=== PATIENT | female | born 1950 | race Caucasian/White ===

== ENCOUNTER → 2017-10-01 08:44 | Outpatient (CLI) | payer BC, SELFPAY ==
[2017-10-01 10:03] LABS: Absolute Lymphocyte Count 1.05 X10^3/ul (0.83-4.51); Absolute Neutrophil Count 3.5 X10^3/uL (2.0-7.7); Basophil# 0.02 X10^3/uL; Basophil% 0.4 % (0-1); Eosinophils% 1.9 % (0-5); Hematocrit 40.4 % (37-47); Hemoglobin 13.7 g/dl (12.0-15.0); Lymphocyte # 1.05 X10^3/ul (4.0); Mean Corp Hgb Conc 33.9 g/gl (32-36); Mean Corpuscular Hgb 32.4 pg (27.0-32.0); Mean Corpuscular Volume 95.5 fL (81-99); Mean Platelet Vol. 10.4 fl (6.2-12.0); Monocyte# 0.61 X10^3/uL; Monocyte% 11.6 % (0-10); Neutrophil # 3.47 X10^3/uL (2.7-7.7); Neutrophil % 66.1 % (47-70); Platelet Count 253 K/mm3 (150-450); RBC Distribution Width CV 14.3 % (11.6-14.6); RBC Distribution Width SD 47.7 fl (35.1-43.9); Red Blood Count 4.23 M/mm3 (4.2-5.4); White Blood Count 5.3 K/mm3 (4.4-11.0)
[2017-10-01 10:08] LABS: POSITIVE COUNT NO; POSITIVE DIFFERENTIAL NO; POSITIVE MORPHOLOGY NO
[2017-10-01 10:17] LABS: ALB/GLOB Ratio 1.3 RATIO (0.9-2.4); AST(SGOT) 21 U/L (15-37); Alanine Aminotransfer ALT/SGPT 29 U/L (13-56); Albumin, Serum 3.9 g/dL (3.2-5.0); Alkaline Phosphatase 69 U/L (45-117); Anion Gap 6 (5-15); BUN 18 mg/dL (7-18); BUN/Creat Ratio 23.5 RATIO (10-20); Calcium,Total 8.6 mg/dL (8.5-10.1); Chloride 106 mmol/L (98-107); Creatinine, Serum 0.77 mg/dL (0.55-1.02); EST Glomerular Filtration Rate 80 mL/min (>60); Est Glom Filt Rate - Afr Amer 97 mL/min (>60); Glucose 71 mg/dL (70-110); Potassium 4.7 mmol/L (3.5-5.1); Protein, Total 6.9 g/dL (6.4-8.2); Sodium Level 141 mmol/L (136-145)
== END ==
PROVIDERS: Family Provider Internal Medicine; PCP Internal Medicine; Visit Provider Internal Medicine Rheumatology
DX: M06.4 Inflammatory polyarthropathy (principal); M79.7 Fibromyalgia; M15.9 Polyosteoarthritis, unspecified; M85.80 Other specified disorders of bone density and structure, unspecified site; Z79.899 Other long term (current) drug therapy
CPT/HCPCS: 36415; 80053; 85025

== ENCOUNTER → 2017-12-10 07:45 | Outpatient (CLI) | payer BC, SELFPAY ==
[2017-12-10 10:21] LABS: Absolute Lymphocyte Count 1.34 X10^3/ul (0.83-4.51); Absolute Neutrophil Count 2.4 X10^3/uL (2.0-7.7); Basophil# 0.01 X10^3/uL; Basophil% 0.2 % (0-1); Eosinophils% 2.4 % (0-5); Hematocrit 43.4 % (37-47); Hemoglobin 14.2 g/dl (12.0-15.0); Lymphocyte # 1.34 X10^3/ul (4.0); Lymphocyte % 32.2 % (19-41); Mean Corp Hgb Conc 32.7 g/gl (32-36); Mean Corpuscular Hgb 31.4 pg (27.0-32.0); Mean Platelet Vol. 10.4 fl (6.2-12.0); Monocyte# 0.33 X10^3/uL; Monocyte% 7.9 % (0-10); Neutrophil # 2.38 X10^3/uL (2.7-7.7); Neutrophil % 57.3 % (47-70); Platelet Count 251 K/mm3 (150-450); RBC Distribution Width CV 14.5 % (11.6-14.6); RBC Distribution Width SD 50.5 fl (35.1-43.9); Red Blood Count 4.52 M/mm3 (4.2-5.4); White Blood Count 4.2 K/mm3 (4.4-11.0)
[2017-12-10 10:23] LABS: POSITIVE COUNT NO; POSITIVE DIFFERENTIAL NO; POSITIVE MORPHOLOGY NO
[2017-12-10 10:40] LABS: ALB/GLOB Ratio 1.2 RATIO (0.9-2.4); AST(SGOT) 23 U/L (15-37); Alanine Aminotransfer ALT/SGPT 27 U/L (13-56); Albumin, Serum 3.8 g/dL (3.2-5.0); Alkaline Phosphatase 71 U/L (45-117); Anion Gap 6 (5-15); BUN 14 mg/dL (7-18); BUN/Creat Ratio 15.5 RATIO (10-20); Calcium,Total 8.5 mg/dL (8.5-10.1); Chloride 105 mmol/L (98-107); Creatinine, Serum 0.91 mg/dL (0.55-1.02); EST Glomerular Filtration Rate 66 mL/min (>60); Est Glom Filt Rate - Afr Amer 80 mL/min (>60); Globulin 3.3 g/dL (2.2-4.2); Glucose 106 mg/dL (74-106); Potassium 4.3 mmol/L (3.5-5.1); Protein, Total 7.1 g/dL (6.4-8.2); Sodium Level 141 mmol/L (136-145)
== END ==
PROVIDERS: Family Provider Internal Medicine; PCP Internal Medicine; Visit Provider Internal Medicine Rheumatology
DX: M06.4 Inflammatory polyarthropathy (principal); M79.7 Fibromyalgia; M15.9 Polyosteoarthritis, unspecified; M85.80 Other specified disorders of bone density and structure, unspecified site; Z79.899 Other long term (current) drug therapy
CPT/HCPCS: 36415; 80053; 85025

== ENCOUNTER → 2018-02-26 08:42 | Outpatient (CLI) | payer BC, SELFPAY ==
[2018-02-26 09:56] LABS: Absolute Lymphocyte Count 1.62 X10^3/ul (0.83-4.51); Absolute Neutrophil Count 3.2 X10^3/uL (2.0-7.7); Basophil# 0.01 X10^3/uL; Basophil% 0.2 % (0-1); Eosinophil# 0.12 X10^3/uL; Eosinophils% 2.2 % (0-5); Hematocrit 44.1 % (37-47); Hemoglobin 14.5 g/dl (12.0-15.0); Lymphocyte # 1.62 X10^3/ul (4.0); Mean Corp Hgb Conc 32.9 g/gl (32-36); Mean Corpuscular Hgb 31.3 pg (27.0-32.0); Mean Platelet Vol. 10.3 fl (6.2-12.0); Monocyte# 0.44 X10^3/uL; Monocyte% 8.1 % (0-10); Neutrophil # 3.21 X10^3/uL (2.7-7.7); Neutrophil % 59.5 % (47-70); POSITIVE COUNT NO; POSITIVE DIFFERENTIAL NO; POSITIVE MORPHOLOGY NO; Platelet Count 300 K/mm3 (150-450); RBC Distribution Width CV 14.4 % (11.6-14.6); RBC Distribution Width SD 49.7 fl (35.1-43.9); Red Blood Count 4.64 M/mm3 (4.2-5.4); White Blood Count 5.4 K/mm3 (4.4-11.0)
[2018-02-26 10:01] LABS: ALB/GLOB Ratio 1.1 RATIO (0.9-2.4); AST(SGOT) 23 U/L (15-37); Alanine Aminotransfer ALT/SGPT 32 U/L (13-56); Albumin, Serum 3.8 g/dL (3.2-5.0); Alkaline Phosphatase 68 U/L (45-117); Anion Gap 5 (5-15); BUN 12 mg/dL (7-18); BUN/Creat Ratio 14.6 RATIO (10-20); Calcium,Total 8.6 mg/dL (8.5-10.1); Chloride 108 mmol/L (98-107); Creatinine, Serum 0.82 mg/dL (0.55-1.02); EST Glomerular Filtration Rate 74 mL/min (>60); Est Glom Filt Rate - Afr Amer 89 mL/min (>60); Globulin 3.5 g/dL (2.2-4.2); Glucose 83 mg/dL (74-106); Potassium 4.5 mmol/L (3.5-5.1); Protein, Total 7.3 g/dL (6.4-8.2); Sodium Level 144 mmol/L (136-145)
== END ==
PROVIDERS: Family Provider Internal Medicine; PCP Internal Medicine; Visit Provider Internal Medicine Rheumatology
DX: M06.4 Inflammatory polyarthropathy (principal); M79.7 Fibromyalgia; M15.9 Polyosteoarthritis, unspecified; M85.80 Other specified disorders of bone density and structure, unspecified site; Z79.899 Other long term (current) drug therapy
CPT/HCPCS: 36415; 80053; 85025

== ENCOUNTER → 2018-05-26 08:45 | Outpatient (CLI) | payer BC, SELFPAY ==
[2018-05-26 10:16] LABS: Absolute Lymphocyte Count 1.21 X10^3/ul (0.83-4.51); Absolute Neutrophil Count 2.8 X10^3/uL (2.0-7.7); Basophil# 0.02 X10^3/uL; Basophil% 0.4 % (0-1); Eosinophil# 0.11 X10^3/uL; Eosinophils% 2.4 % (0-5); Hematocrit 40.4 % (37-47); Hemoglobin 13.6 g/dl (12.0-15.0); Lymphocyte # 1.21 X10^3/ul (4.0); Lymphocyte % 26.9 % (19-41); Mean Corp Hgb Conc 33.7 g/gl (32-36); Mean Corpuscular Hgb 31.6 pg (27.0-32.0); Mean Platelet Vol. 10.3 fl (6.2-12.0); Monocyte# 0.32 X10^3/uL; Monocyte% 7.1 % (0-10); Neutrophil # 2.84 X10^3/uL (2.7-7.7); Neutrophil % 63.2 % (47-70); Platelet Count 300 K/mm3 (150-450); RBC Distribution Width SD 47.3 fl (35.1-43.9); White Blood Count 4.5 K/mm3 (4.4-11.0)
[2018-05-26 10:17] LABS: POSITIVE COUNT NO; POSITIVE DIFFERENTIAL NO; POSITIVE MORPHOLOGY NO
[2018-05-26 10:27] LABS: AST(SGOT) 20 U/L (15-37); Alanine Aminotransfer ALT/SGPT 21 U/L (13-56); Albumin, Serum 3.4 g/dL (3.2-5.0); Alkaline Phosphatase 76 U/L (45-117); Anion Gap 7 (5-15); BUN 16 mg/dL (7-18); BUN/Creat Ratio 13.8 RATIO (10-20); Calcium,Total 8.6 mg/dL (8.5-10.1); Chloride 108 mmol/L (98-107); Creatinine, Serum 1.16 mg/dL (0.55-1.02); EST Glomerular Filtration Rate 50 mL/min (>60); Est Glom Filt Rate - Afr Amer 60 mL/min (>60); Globulin 3.4 g/dL (2.2-4.2); Glucose 77 mg/dL (74-106); Potassium 4.5 mmol/L (3.5-5.1); Protein, Total 6.8 g/dL (6.4-8.2); Sodium Level 142 mmol/L (136-145)
== END ==
PROVIDERS: Family Provider Internal Medicine; PCP Internal Medicine; Referring Provider Internal Medicine Rheumatology; Visit Provider Internal Medicine Rheumatology
DX: M06.4 Inflammatory polyarthropathy (principal); M79.7 Fibromyalgia; M15.9 Polyosteoarthritis, unspecified; M85.80 Other specified disorders of bone density and structure, unspecified site; Z79.899 Other long term (current) drug therapy
CPT/HCPCS: 36415; 80053; 85025

== ENCOUNTER → 2018-09-08 09:49 | Outpatient (CLI) | payer BC, SELFPAY ==
--- NOTE | 2018-09-08 09:51 | BI_ITS ---
MAMMOGRAPHY - BILATERAL SCREENING REASON FOR EXAM: Female, 68 years old. Routine annual screening examination. PERTINENT HISTORY: Grandmother with breast cancer. TECHNIQUE: Digital bilateral breast yannick (3D mammographic acquisition) in the CC and MLO projections. 2-D mediolateral oblique (MLO) and craniocaudad (CC) views of both breasts were obtained. CAD: Full Field Digital Mammography with Computer Added Detection was performed. COMPARISON: Comparison is made with prior study dated August 15, 2017. FINDINGS: Breast Composition: The breasts are heterogeneously dense, which may obscure small masses. There are no dominant masses or suspicious calcifications. No other significant abnormalities are identified. There has been no significant change since the prior study. BI/SCREENING MAMM (CAD), BILAT IMPRESSION: Stable bilateral screening mammogram. Yearly follow-up mammogram recommended. (A) ASSESSMENT CATEGORY: BIRADS Category 1: Negative. A letter regarding these results will be sent to the patient by the facility within 30 days. Approximately 10% of breast cancers are not detected by mammography. A normal mammogram should not delay biopsy of a clinically suspicious abnormality. [id number] Electronically Signed: Kendrick Kurtz MD at 12:55 EST Tel [phone], Service support ,
== END ==
PROVIDERS: Family Provider Internal Medicine; PCP Internal Medicine; Referring Provider Obstetrics & Gynecology; Visit Provider Obstetrics & Gynecology
DX: Z12.31 Encounter for screening mammogram for malignant neoplasm of breast (principal)
CPT/HCPCS: 77063; 77067

== ENCOUNTER → 2018-09-09 08:49 | Outpatient (CLI) | payer BC, SELFPAY ==
[2018-09-08 11:08] VITALS: BMI 25.2
[2018-09-09 10:34] LABS: Absolute Lymphocyte Count 1.31 X10^3/ul (0.83-4.51); Absolute Neutrophil Count 2.6 X10^3/uL (2.0-7.7); Basophil# 0.01 X10^3/uL; Basophil% 0.2 % (0-1); Eosinophils% 2.3 % (0-5); Hematocrit 41.1 % (37-47); Hemoglobin 13.4 g/dl (12.0-15.0); Lymphocyte # 1.31 X10^3/ul (4.0); Lymphocyte % 29.6 % (19-41); Mean Corp Hgb Conc 32.6 g/gl (32-36); Mean Corpuscular Hgb 31.3 pg (27.0-32.0); Mean Platelet Vol. 10.5 fl (6.2-12.0); Monocyte# 0.39 X10^3/uL; Monocyte% 8.8 % (0-10); Neutrophil # 2.61 X10^3/uL (2.7-7.7); Neutrophil % 59.1 % (47-70); Platelet Count 263 K/mm3 (150-450); RBC Distribution Width CV 14.8 % (11.6-14.6); RBC Distribution Width SD 51.4 fl (35.1-43.9); Red Blood Count 4.28 M/mm3 (4.2-5.4); White Blood Count 4.4 K/mm3 (4.4-11.0)
[2018-09-09 10:35] LABS: POSITIVE COUNT NO; POSITIVE DIFFERENTIAL NO; POSITIVE MORPHOLOGY NO
[2018-09-09 11:03] LABS: BUN 11 mg/dL (7-18); Creatinine, Serum 0.77 mg/dL (0.55-1.02); EST Glomerular Filtration Rate 79 mL/min (>60); Glucose 85 mg/dL (74-106)
[2018-09-09 11:04] LABS: ALB/GLOB Ratio 1.1 RATIO (0.9-2.4); AST(SGOT) 24 U/L (15-37); Alanine Aminotransfer ALT/SGPT 35 U/L (13-56); Albumin, Serum 3.6 g/dL (3.2-5.0); Alkaline Phosphatase 70 U/L (45-117); Anion Gap 6 (5-15); BUN/Creat Ratio 14.2 RATIO (10-20); Calcium,Total 8.6 mg/dL (8.5-10.1); Chloride 109 mmol/L (98-107); Est Glom Filt Rate - Afr Amer 96 mL/min (>60); Globulin 3.2 g/dL (2.2-4.2); Potassium 4.2 mmol/L (3.5-5.1); Protein, Total 6.8 g/dL (6.4-8.2); Sodium Level 142 mmol/L (136-145)
== END ==
PROVIDERS: Family Provider Internal Medicine; PCP Internal Medicine; Referring Provider Internal Medicine Rheumatology; Visit Provider Internal Medicine Rheumatology
DX: M06.4 Inflammatory polyarthropathy (principal); M79.7 Fibromyalgia; M15.9 Polyosteoarthritis, unspecified; M85.80 Other specified disorders of bone density and structure, unspecified site; Z79.899 Other long term (current) drug therapy
CPT/HCPCS: 36415; 80053; 85025

== ENCOUNTER → 2018-11-24 08:37 | Outpatient (CLI) | payer BC, SELFPAY ==
[2018-09-08 11:08] VITALS: BMI 25.2
[2018-11-24 10:20] LABS: Absolute Lymphocyte Count 1.29 X10^3/ul (0.83-4.51); Absolute Neutrophil Count 2.3 X10^3/uL (2.0-7.7); Basophil# 0.01 X10^3/uL; Basophil% 0.2 % (0-1); Eosinophil# 0.06 X10^3/uL; Eosinophils% 1.5 % (0-5); Hematocrit 41.8 % (37-47); Hemoglobin 13.8 g/dl (12.0-15.0); Lymphocyte # 1.29 X10^3/ul (4.0); Lymphocyte % 32.1 % (19-41); Mean Platelet Vol. 10.7 fl (6.2-12.0); Monocyte# 0.33 X10^3/uL; Monocyte% 8.2 % (0-10); Neutrophil # 2.32 X10^3/uL (2.7-7.7); Neutrophil % 57.8 % (47-70); Platelet Count 245 K/mm3 (150-450); RBC Distribution Width SD 48.3 fl (35.1-43.9); Red Blood Count 4.31 M/mm3 (4.2-5.4)
[2018-11-24 10:24] LABS: POSITIVE COUNT NO; POSITIVE DIFFERENTIAL NO; POSITIVE MORPHOLOGY NO
[2018-11-24 10:33] LABS: ALB/GLOB Ratio 1.1 RATIO (0.9-2.4); AST(SGOT) 25 U/L (15-37); Alanine Aminotransfer ALT/SGPT 29 U/L (13-56); Albumin, Serum 3.6 g/dL (3.2-5.0); Alkaline Phosphatase 67 U/L (45-117); Anion Gap 4 (5-15); BUN 14 mg/dL (7-18); BUN/Creat Ratio 16.1 RATIO (10-20); Calcium,Total 8.6 mg/dL (8.5-10.1); Chloride 109 mmol/L (98-107); Creatinine, Serum 0.87 mg/dL (0.55-1.02); EST Glomerular Filtration Rate 69 mL/min (>60); Est Glom Filt Rate - Afr Amer 84 mL/min (>60); Globulin 3.2 g/dL (2.2-4.2); Glucose 78 mg/dL (74-106); Potassium 4.2 mmol/L (3.5-5.1); Protein, Total 6.8 g/dL (6.4-8.2); Sodium Level 142 mmol/L (136-145)
== END ==
PROVIDERS: Family Provider Internal Medicine; PCP Internal Medicine; Referring Provider Internal Medicine Rheumatology; Visit Provider Internal Medicine Rheumatology
DX: M85.80 Other specified disorders of bone density and structure, unspecified site (principal); M06.4 Inflammatory polyarthropathy; M79.7 Fibromyalgia; M15.9 Polyosteoarthritis, unspecified; Z79.899 Other long term (current) drug therapy
CPT/HCPCS: 36415; 80053; 85025

== ENCOUNTER → 2019-02-15 08:54 | Outpatient (CLI) | payer BC, SELFPAY ==
[2018-09-08 11:08] VITALS: BMI 25.2
[2019-02-15 10:21] LABS: Absolute Lymphocyte Count 1.14 X10^3/ul (0.83-4.51); Absolute Neutrophil Count 2.1 X10^3/uL (2.0-7.7); Eosinophil# 0.07 X10^3/uL; Eosinophils% 1.9 % (0-5); Hematocrit 39.4 % (37-47); Hemoglobin 13.3 g/dl (12.0-15.0); Lymphocyte # 1.14 X10^3/ul (4.0); Lymphocyte % 31.5 % (19-41); Mean Corp Hgb Conc 33.8 g/gl (32-36); Mean Corpuscular Hgb 31.8 pg (27.0-32.0); Mean Corpuscular Volume 94.3 fL (81-99); Mean Platelet Vol. 10.2 fl (6.2-12.0); Monocyte# 0.35 X10^3/uL; Monocyte% 9.7 % (0-10); Neutrophil # 2.06 X10^3/uL (2.7-7.7); Neutrophil % 56.9 % (47-70); Platelet Count 248 K/mm3 (150-450); RBC Distribution Width CV 14.9 % (11.6-14.6); RBC Distribution Width SD 50.2 fl (35.1-43.9); Red Blood Count 4.18 M/mm3 (4.2-5.4); White Blood Count 3.6 K/mm3 (4.4-11.0)
[2019-02-15 10:22] LABS: POSITIVE COUNT NO; POSITIVE DIFFERENTIAL NO; POSITIVE MORPHOLOGY NO
[2019-02-15 10:53] LABS: AST(SGOT) 25 U/L (15-37); Alanine Aminotransfer ALT/SGPT 28 U/L (13-56); Albumin, Serum 3.3 g/dL (3.2-5.0); Alkaline Phosphatase 65 U/L (45-117); Anion Gap 11 (5-15); BUN 12 mg/dL (7-18); Calcium,Total 8.6 mg/dL (8.5-10.1); Chloride 110 mmol/L (98-107); Creatinine, Serum 0.75 mg/dL (0.55-1.02); EST Glomerular Filtration Rate 82 mL/min (>60); Est Glom Filt Rate - Afr Amer 99 mL/min (>60); Globulin 3.3 g/dL (2.2-4.2); Glucose 88 mg/dL (74-106); Potassium 4.1 mmol/L (3.5-5.1); Protein, Total 6.6 g/dL (6.4-8.2); Sodium Level 144 mmol/L (136-145)
== END ==
PROVIDERS: Family Provider Internal Medicine; PCP Internal Medicine; Referring Provider Internal Medicine Rheumatology; Visit Provider Internal Medicine Rheumatology
DX: M06.4 Inflammatory polyarthropathy (principal); M79.7 Fibromyalgia; M15.9 Polyosteoarthritis, unspecified; M85.80 Other specified disorders of bone density and structure, unspecified site; Z79.899 Other long term (current) drug therapy
CPT/HCPCS: 36415; 80053; 85025

== ENCOUNTER → 2019-05-12 08:51 | Outpatient (CLI) | payer BC, SELFPAY ==
[2018-09-08 11:08] VITALS: BMI 25.2
[2019-05-12 10:14] LABS: Absolute Lymphocyte Count 1.35 X10^3/uL (0.83-4.51); Absolute Neutrophil Count 2.4 X10^3/uL (2.0-7.7); Basophil# 0.02 X10^3/uL; Basophil% 0.5 % (0-1); Eosinophil# 0.11 X10^3/uL; Eosinophils% 2.6 % (0-5); Hematocrit 41.6 % (37-47); Hemoglobin 14.2 g/dL (12.0-15.0); Lymphocyte # 1.35 X10^3/ul (4.0); Lymphocyte % 31.6 % (19-41); Mean Corp Hgb Conc 34.1 g/dL (32-36); Mean Corpuscular Hgb 32.4 pg (27.0-32.0); Mean Platelet Vol. 10.1 fl (6.2-12.0); Monocyte# 0.36 X10^3/uL; Monocyte% 8.4 % (0-10); NRBC Flagged by Analyzer 0 % (0-5); Neutrophil # 2.42 X10^3/uL (2.7-7.7); Neutrophil % 56.7 % (47-70); Platelet Count 280 K/mm3 (150-450); RBC Distribution Width CV 13.7 % (11.6-14.6); RBC Distribution Width SD 47.5 fl (35.1-43.9); Red Blood Count 4.38 M/mm3 (4.2-5.4); White Blood Count 4.3 K/mm3 (4.4-11.0)
[2019-05-12 10:42] LABS: ALB/GLOB Ratio 1.1 RATIO (0.9-2.4); AST(SGOT) 19 U/L (15-37); Alanine Aminotransfer ALT/SGPT 25 U/L (13-56); Albumin, Serum 3.6 g/dL (3.2-5.0); Alkaline Phosphatase 72 U/L (45-117); Anion Gap 4 (5-15); BUN 9 mg/dL (7-18); BUN/Creat Ratio 9.9 RATIO (10-20); Chloride 109 mmol/L (98-107); Creatinine, Serum 0.91 mg/dL (0.55-1.02); EST Glomerular Filtration Rate 66 mL/min (>60); Est Glom Filt Rate - Afr Amer 79 mL/min (>60); Globulin 3.4 g/dL (2.2-4.2); Glucose 76 mg/dL (74-106); Potassium 4.1 mmol/L (3.5-5.1); Sodium Level 141 mmol/L (136-145)
== END ==
PROVIDERS: Family Provider Internal Medicine; PCP Internal Medicine; Referring Provider Internal Medicine Rheumatology; Visit Provider Internal Medicine Rheumatology
DX: M06.4 Inflammatory polyarthropathy (principal); M79.7 Fibromyalgia; M15.9 Polyosteoarthritis, unspecified; M85.80 Other specified disorders of bone density and structure, unspecified site; Z79.899 Other long term (current) drug therapy
CPT/HCPCS: 36415; 80053; 85025

== ENCOUNTER → 2019-08-10 09:00 | Outpatient (CLI) | payer BC, SELFPAY ==
[2018-09-08 11:08] VITALS: BMI 25.2
[2019-08-10 10:09] LABS: Absolute Lymphocyte Count 1.16 X10^3/uL (0.83-4.51); Basophil# 0.02 X10^3/uL; Basophil% 0.4 % (0-1); Eosinophil# 0.12 X10^3/uL; Eosinophils% 2.5 % (0-5); Hemoglobin 14.3 g/dL (12.0-15.0); Lymphocyte # 1.16 X10^3/ul (4.0); Lymphocyte % 24.5 % (19-41); Mean Corp Hgb Conc 33.3 g/dL (32-36); Mean Corpuscular Volume 96.2 fL (81-99); Mean Platelet Vol. 10.1 fl (6.2-12.0); Monocyte# 0.42 X10^3/uL; Monocyte% 8.9 % (0-10); NRBC Flagged by Analyzer 0 % (0-5); Neutrophil # 3.01 X10^3/uL (2.7-7.7); Neutrophil % 63.7 % (47-70); Platelet Count 277 K/mm3 (150-450); RBC Distribution Width CV 14.3 % (11.6-14.6); RBC Distribution Width SD 49.8 fl (35.1-43.9); Red Blood Count 4.47 M/mm3 (4.2-5.4); White Blood Count 4.7 K/mm3 (4.4-11.0)
[2019-08-10 10:47] LABS: ALB/GLOB Ratio 1.2 RATIO (0.9-2.4); AST(SGOT) 22 U/L (15-37); Alanine Aminotransfer ALT/SGPT 30 U/L (13-56); Albumin, Serum 3.7 g/dL (3.2-5.0); Alkaline Phosphatase 72 U/L (45-117); Anion Gap 4 (5-15); BUN 15 mg/dL (7-18); BUN/Creat Ratio 15.9 RATIO (10-20); Calcium,Total 8.8 mg/dL (8.5-10.1); Chloride 108 mmol/L (98-107); Creatinine, Serum 0.94 mg/dL (0.55-1.02); EST Glomerular Filtration Rate 63 mL/min (>60); Est Glom Filt Rate - Afr Amer 76 mL/min (>60); Globulin 3.2 g/dL (2.2-4.2); Glucose 79 mg/dL (74-106); Potassium 4.4 mmol/L (3.5-5.1); Protein, Total 6.9 g/dL (6.4-8.2); Sodium Level 143 mmol/L (136-145)
== END ==
PROVIDERS: Family Provider Internal Medicine; PCP Internal Medicine; Referring Provider Internal Medicine Rheumatology; Visit Provider Internal Medicine Rheumatology
DX: M06.4 Inflammatory polyarthropathy (principal); M79.7 Fibromyalgia; M15.9 Polyosteoarthritis, unspecified; M85.80 Other specified disorders of bone density and structure, unspecified site; Z79.899 Other long term (current) drug therapy
CPT/HCPCS: 36415; 80053; 85025

== ENCOUNTER → 2019-09-15 10:07 | Outpatient (CLI) | payer BC, SELFPAY ==
[2018-09-08 11:08] VITALS: BMI 25.2
[2019-09-15 09:09] VITALS: BMI 25.2
--- NOTE | 2019-09-15 10:08 | BI_ITS ---
MAMMOGRAPHY - BILATERAL SCREENING REASON FOR EXAM: Female, 69 years old. Routine annual screening examination. PERTINENT HISTORY: Grandmother with breast cancer. TECHNIQUE: Digital bilateral breast reymundo (3D mammographic acquisition) in the CC and MLO projections. 2-D mediolateral oblique (MLO) and craniocaudad (CC) views of both breasts were obtained. CAD: Full Field Digital Mammography with Computer Added Detection was performed. COMPARISON: Comparison is made with prior study dated September 08, 2018 and August 15, 2017. FINDINGS: Breast Composition: The breasts are heterogeneously dense, which may obscure small masses. There are no dominant masses or suspicious calcifications. No other significant abnormalities are identified. There has been no significant change since the prior study. BI/SCREEN MAMM (CAD) W/REYMUNDO BILAT IMPRESSION: Stable bilateral screening mammogram. Yearly follow-up mammogram recommended. (A) ASSESSMENT CATEGORY: BIRADS Category 1: Negative. A letter regarding these results will be sent to the patient by the facility within 30 days. Approximately 10% of breast cancers are not detected by mammography. A normal mammogram should not delay biopsy of a clinically suspicious abnormality. [id number] Electronically Signed: Kendrick Kurtz, at 11:03 EST , Service support ,
== END ==
PROVIDERS: Family Provider Internal Medicine; PCP Internal Medicine; Referring Provider Obstetrics & Gynecology; Visit Provider Obstetrics & Gynecology
DX: Z12.31 Encounter for screening mammogram for malignant neoplasm of breast (principal)
CPT/HCPCS: 77063; 77067

== ENCOUNTER → 2019-09-23 09:50 | Outpatient (CLI) | payer BC, SELFPAY ==
[2019-09-15 09:09] VITALS: BMI 25.2
--- NOTE | 2019-09-23 09:50 | BD_ITS ---
STUDY: DUAL ENERGY X-RAY ABSORPTIOMETRY / DXA REASON FOR EXAM: Female, 69 years old. Unsure of jonathan- age. Patient is 139.6 # and 62.5'' a loss of .5-1 and quot;. Takes a multi-vit and does a little exercising. TECHNIQUE: Bone Mineral Density (BMD) measurements of lumbar spine and bilateral hips were obtained. COMPARISON: None. FINDINGS: Lumbar Spine (L1-L4): g/cm2 (1.099) / T-score (-0.7) / Z-score (1.0) Findings are suggestive of normal bone density with a low fracture risk. Left Femur Total: g/cm2 (0.901) / T-score (-0.8) / Z-score (0.5) Left Femoral Neck: g/cm2 (0.804) / T-score (-1.7) / Z-score (-0.1) Right Femur Total: g/cm2 (0.927) / T-score (-0.6) / Z-score (0.7) Right Femoral Neck: g/cm2 (0.841) / T-score (-1.4) / Z-score (0.2) BD/Dexa Bone Density Study IMPRESSION: The patient is considered osteopenic as outlined below according to World Naveed Organization (WHO) criteria with a moderate fracture risk. Reference Information: The T-score is the number of standard deviations above or below the standard which is normal for young adults at their peak bone mineral density. The World Health Organization (WHO) interprets the T-scores as follows: Above -1 Normal bone density Between -1 and -2.5 Osteopenia Equal to / or below -2.5 Osteoporosis As a practical clinical guideline, osteopenia may be graded as follows: Mild -1 through -1.5 Moderate -1.6 through -2.0 Severe -2.1 through -2.4 The Z-score is the number of standard deviations above or below age-matched controls. A Z-score of less than -1.5 would be considered abnormal. References: 1. NIH Osteoporosis and Related Bone Diseases http://www.osteo.org 2. International Society for Clinical Densitometry http://www.iscd.org 3. National Osteoporosis Foundation http://www.nof.org Electronically Signed: Kendrick Kurtz, at 14:25 EST , Service support ,
== END ==
PROVIDERS: Family Provider Internal Medicine; PCP Internal Medicine; Referring Provider Obstetrics & Gynecology; Visit Provider Obstetrics & Gynecology
DX: E28.39 Other primary ovarian failure (principal)
CPT/HCPCS: 77080

== ENCOUNTER → 2019-11-08 09:54 | Outpatient (CLI) | payer BC, SELFPAY ==
[2019-09-15 09:09] VITALS: BMI 25.2
[2019-11-08 12:38] LABS: Basophil# 0.02 X10^3/uL; Basophil% 0.3 % (0-1); Eosinophil# 0.09 X10^3/uL; Eosinophils% 1.6 % (0-5); Hematocrit 40.6 % (37-47); Hemoglobin 13.4 g/dL (12.0-15.0); Lymphocyte % 22.5 % (19-41); Mean Corpuscular Hgb 31.3 pg (27.0-32.0); Mean Corpuscular Volume 94.9 fL (81-99); Mean Platelet Vol. 10.9 fl (6.2-12.0); Monocyte# 0.36 X10^3/uL; Monocyte% 6.2 % (0-10); NRBC Flagged by Analyzer 0 % (0-5); Neutrophil % 69.2 % (47-70); Platelet Count 269 K/mm3 (150-450); RBC Distribution Width CV 14.2 % (11.6-14.6); RBC Distribution Width SD 48.6 fl (35.1-43.9); Red Blood Count 4.28 M/mm3 (4.2-5.4); White Blood Count 5.8 K/mm3 (4.4-11.0)
[2019-11-08 12:49] LABS: AST(SGOT) 24 U/L (15-37); Alanine Aminotransfer ALT/SGPT 28 U/L (13-56); Albumin, Serum 3.5 g/dL (3.2-5.0); Alkaline Phosphatase 71 U/L (45-117); Anion Gap 6 (5-15); BUN 12 mg/dL (7-18); BUN/Creat Ratio 13.8 RATIO (10-20); Calcium,Total 8.9 mg/dL (8.5-10.1); Chloride 107 mmol/L (98-107); Creatinine, Serum 0.87 mg/dL (0.55-1.02); EST Glomerular Filtration Rate 69 mL/min (>60); Est Glom Filt Rate - Afr Amer 83 mL/min (>60); Globulin 3.5 g/dL (2.2-4.2); Glucose 91 mg/dL (74-106); Potassium 4.3 mmol/L (3.5-5.1); Sodium Level 141 mmol/L (136-145)
== END ==
PROVIDERS: PCP Internal Medicine; Referring Provider Internal Medicine Rheumatology; Visit Provider Internal Medicine Rheumatology
DX: M06.4 Inflammatory polyarthropathy (principal); M79.7 Fibromyalgia; M15.9 Polyosteoarthritis, unspecified; M85.80 Other specified disorders of bone density and structure, unspecified site; Z79.899 Other long term (current) drug therapy
CPT/HCPCS: 36415; 80053; 85025

== ENCOUNTER → 2020-01-25 13:51 | Outpatient (CLI) | payer BC, SELFPAY ==
[2019-09-15 09:09] VITALS: BMI 25.2
[2020-01-25 15:05] LABS: Absolute Lymphocyte Count 1.54 X10^3/uL (0.83-4.51); Absolute Neutrophil Count 3.5 X10^3/uL (2.0-7.7); Basophil# 0.02 X10^3/uL; Basophil% 0.4 % (0-1); Eosinophil# 0.08 X10^3/uL; Eosinophils% 1.4 % (0-5); Hematocrit 39.4 % (37-47); Hemoglobin 13.3 g/dL (12.0-15.0); Lymphocyte # 1.54 X10^3/ul (4.0); Lymphocyte % 27.8 % (19-41); Mean Corp Hgb Conc 33.8 g/dL (32-36); Mean Corpuscular Hgb 32.6 pg (27.0-32.0); Mean Corpuscular Volume 96.6 fL (81-99); Mean Platelet Vol. 10.1 fl (6.2-12.0); Monocyte# 0.41 X10^3/uL; Monocyte% 7.4 % (0-10); NRBC Flagged by Analyzer 0 % (0-5); Neutrophil # 3.47 X10^3/uL (2.7-7.7); Neutrophil % 62.8 % (47-70); Platelet Count 284 K/mm3 (150-450); RBC Distribution Width CV 14.4 % (11.6-14.6); RBC Distribution Width SD 50.1 fl (35.1-43.9); Red Blood Count 4.08 M/mm3 (4.2-5.4); White Blood Count 5.5 K/mm3 (4.4-11.0)
[2020-01-25 16:07] LABS: ALB/GLOB Ratio 1.1 RATIO (0.9-2.4); AST(SGOT) 34 U/L (15-37); Alanine Aminotransfer ALT/SGPT 39 U/L (13-56); Albumin, Serum 3.7 g/dL (3.2-5.0); Alkaline Phosphatase 64 U/L (45-117); Anion Gap 6 (5-15); BUN 12 mg/dL (7-18); BUN/Creat Ratio 15.5 RATIO (10-20); Calcium,Total 8.7 mg/dL (8.5-10.1); Chloride 107 mmol/L (98-107); Creatinine, Serum 0.78 mg/dL (0.55-1.02); EST Glomerular Filtration Rate 78 mL/min (>60); Est Glom Filt Rate - Afr Amer 95 mL/min (>60); Globulin 3.4 g/dL (2.2-4.2); Glucose 82 mg/dL (74-106); Potassium 4.1 mmol/L (3.5-5.1); Protein, Total 7.1 g/dL (6.4-8.2); Sodium Level 141 mmol/L (136-145)
== END ==
PROVIDERS: PCP Internal Medicine; Referring Provider Internal Medicine Rheumatology; Visit Provider Internal Medicine Rheumatology
DX: M06.4 Inflammatory polyarthropathy (principal); M79.7 Fibromyalgia; M15.9 Polyosteoarthritis, unspecified; M85.80 Other specified disorders of bone density and structure, unspecified site; Z79.899 Other long term (current) drug therapy
CPT/HCPCS: 36415; 80053; 85025

== ENCOUNTER → 2020-04-20 08:22 | Outpatient (CLI) | payer BC, SELFPAY ==
[2019-09-15 09:09] VITALS: BMI 25.2
[2020-04-20 09:53] LABS: Absolute Lymphocyte Count 1.46 X10^3/uL (0.83-4.51); Absolute Neutrophil Count 2.4 X10^3/uL (2.0-7.7); Basophil# 0.03 X10^3/uL; Basophil% 0.7 % (0-1); Eosinophil# 0.19 X10^3/uL; Eosinophils% 4.2 % (0-5); Hematocrit 43.8 % (37-47); Hemoglobin 14.2 g/dL (12.0-15.0); Lymphocyte # 1.46 X10^3/ul (4.0); Lymphocyte % 32.2 % (19-41); Mean Corp Hgb Conc 32.4 g/dL (32-36); Mean Corpuscular Hgb 31.6 pg (27.0-32.0); Mean Corpuscular Volume 97.3 fL (81-99); Mean Platelet Vol. 10.4 fl (6.2-12.0); Monocyte# 0.44 X10^3/uL; Monocyte% 9.7 % (0-10); NRBC Flagged by Analyzer 0 % (0-5); Platelet Count 295 K/mm3 (150-450); RBC Distribution Width CV 13.7 % (11.6-14.6); RBC Distribution Width SD 48.5 fl (35.1-43.9); White Blood Count 4.5 K/mm3 (4.4-11.0)
[2020-04-20 10:07] LABS: ALB/GLOB Ratio 1.1 RATIO (0.9-2.4); AST(SGOT) 22 U/L (15-37); Alanine Aminotransfer ALT/SGPT 30 U/L (13-56); Albumin, Serum 3.7 g/dL (3.2-5.0); Alkaline Phosphatase 75 U/L (45-117); Anion Gap 3 (5-15); BUN 11 mg/dL (7-18); BUN/Creat Ratio 12.4 RATIO (10-20); Calcium,Total 8.8 mg/dL (8.5-10.1); Chloride 110 mmol/L (98-107); Creatinine, Serum 0.89 mg/dL (0.55-1.02); EST Glomerular Filtration Rate 67 mL/min (>60); Est Glom Filt Rate - Afr Amer 81 mL/min (>60); Globulin 3.3 g/dL (2.2-4.2); Glucose 70 mg/dL (74-106); Potassium 4.4 mmol/L (3.5-5.1); Sodium Level 143 mmol/L (136-145)
== END ==
PROVIDERS: PCP Internal Medicine; Referring Provider Internal Medicine Rheumatology; Visit Provider Internal Medicine Rheumatology
DX: M06.4 Inflammatory polyarthropathy (principal); M79.7 Fibromyalgia; M15.9 Polyosteoarthritis, unspecified; M85.80 Other specified disorders of bone density and structure, unspecified site; Z79.899 Other long term (current) drug therapy
CPT/HCPCS: 36415; 80053; 85025

== ENCOUNTER → 2020-07-12 08:45 | Outpatient (CLI) | payer BC, SELFPAY ==
[2019-09-15 09:09] VITALS: BMI 25.2
[2020-07-12 10:13] LABS: Absolute Lymphocyte Count 1.42 X10^3/uL (0.83-4.51); Absolute Neutrophil Count 2.8 X10^3/uL (2.0-7.7); Basophil# 0.02 X10^3/uL; Basophil% 0.4 % (0-1); Eosinophil# 0.08 X10^3/uL; Eosinophils% 1.7 % (0-5); Hematocrit 41.3 % (37-47); Hemoglobin 13.7 g/dL (12.0-15.0); Lymphocyte # 1.42 X10^3/ul (4.0); Mean Corp Hgb Conc 33.2 g/dL (32-36); Mean Corpuscular Volume 96.5 fL (81-99); Mean Platelet Vol. 10.3 fl (6.2-12.0); Monocyte# 0.46 X10^3/uL; Monocyte% 9.7 % (0-10); NRBC Flagged by Analyzer 0 % (0-5); Neutrophil # 2.75 X10^3/uL (2.7-7.7); Platelet Count 291 K/mm3 (150-450); RBC Distribution Width CV 14.4 % (11.6-14.6); RBC Distribution Width SD 50.6 fl (35.1-43.9); Red Blood Count 4.28 M/mm3 (4.2-5.4); White Blood Count 4.7 K/mm3 (4.4-11.0)
[2020-07-12 10:53] LABS: ALB/GLOB Ratio 1.2 RATIO (0.9-2.4); AST(SGOT) 22 U/L (15-37); Alanine Aminotransfer ALT/SGPT 29 U/L (13-56); Albumin, Serum 3.7 g/dL (3.2-5.0); Alkaline Phosphatase 69 U/L (45-117); Anion Gap 4 (5-15); BUN 13 mg/dL (7-18); BUN/Creat Ratio 15.9 RATIO (10-20); Calcium,Total 8.9 mg/dL (8.5-10.1); Chloride 109 mmol/L (98-107); Creatinine, Serum 0.82 mg/dL (0.55-1.02); EST Glomerular Filtration Rate 74 mL/min (>60); Est Glom Filt Rate - Afr Amer 89 mL/min (>60); Globulin 3.2 g/dL (2.2-4.2); Glucose 84 mg/dL (74-106); Potassium 4.4 mmol/L (3.5-5.1); Protein, Total 6.9 g/dL (6.4-8.2); Sodium Level 142 mmol/L (136-145)
== END ==
PROVIDERS: PCP Internal Medicine; Referring Provider Internal Medicine Rheumatology; Visit Provider Internal Medicine Rheumatology
DX: M06.4 Inflammatory polyarthropathy (principal); M79.7 Fibromyalgia; M15.9 Polyosteoarthritis, unspecified; M85.80 Other specified disorders of bone density and structure, unspecified site; Z79.899 Other long term (current) drug therapy
CPT/HCPCS: 36415; 80053; 85025

== ENCOUNTER → 2020-09-19 09:55 | Outpatient (CLI) | payer MEDICARE, SELFPAY ==
[2019-09-15 09:09] VITALS: BMI 25.2
--- NOTE | 2020-09-19 09:57 | BI_ITS ---
MAMMOGRAPHY - BILATERAL SCREENING REASON FOR EXAM: Female, 70 years old. Routine annual screening examination. PERTINENT HISTORY: Grandmother with breast cancer. TECHNIQUE: Digital bilateral breast reymundo (3D mammographic acquisition) in the CC and MLO projections. 2-D mediolateral oblique (MLO) and craniocaudad (CC) views of both breasts were obtained. CAD: Full Field Digital Mammography with Computer Added Detection was performed. COMPARISON: Comparison is made with prior study dated 09/15/2019 and 09/08/2018. FINDINGS: Breast Composition: The breasts are heterogeneously dense, which may obscure small masses. There are no dominant masses or suspicious calcifications. No other significant abnormalities are identified. There has been no significant change since the prior study. BI/SCRN MAMM (CAD)W/REYMUNDO BILAT IMPRESSION: Stable bilateral screening mammogram. Yearly follow-up mammogram recommended. (A) ASSESSMENT CATEGORY: BIRADS Category 1: Negative. A letter regarding these results will be sent to the patient by the facility within 30 days. Approximately 10% of breast cancers are not detected by mammography. A normal mammogram should not delay biopsy of a clinically suspicious abnormality. [id number] Electronically Signed: Kendrick Kurtz MD at 10:56 EST , Service support ,
== END ==
PROVIDERS: PCP Internal Medicine; Referring Provider Obstetrics & Gynecology; Visit Provider Obstetrics & Gynecology
DX: Z12.31 Encounter for screening mammogram for malignant neoplasm of breast (principal)
CPT/HCPCS: 77063; 77067

== ENCOUNTER → 2020-09-22 08:42 | Outpatient (CLI) | payer MEDICARE, SELFPAY ==
[2019-09-15 09:09] VITALS: BMI 25.2
[2020-09-22 09:43] LABS: Absolute Lymphocyte Count 1.37 X10^3/uL (0.83-4.51); Absolute Neutrophil Count 2.7 X10^3/uL (2.0-7.7); Basophil# 0.02 X10^3/uL; Basophil% 0.4 % (0-1); Eosinophil# 0.12 X10^3/uL; Eosinophils% 2.6 % (0-5); Hematocrit 41.6 % (37-47); Hemoglobin 13.6 g/dL (12.0-15.0); Lymphocyte # 1.37 X10^3/ul (4.0); Lymphocyte % 29.3 % (19-41); Mean Corp Hgb Conc 32.7 g/dL (32-36); Mean Corpuscular Hgb 31.5 pg (27.0-32.0); Mean Corpuscular Volume 96.3 fL (81-99); Mean Platelet Vol. 10.3 fl (6.2-12.0); Monocyte# 0.44 X10^3/uL; Monocyte% 9.4 % (0-10); NRBC Flagged by Analyzer 0 % (0-5); Neutrophil # 2.72 X10^3/uL (2.7-7.7); Neutrophil % 58.1 % (47-70); Platelet Count 271 K/mm3 (150-450); RBC Distribution Width CV 13.9 % (11.6-14.6); RBC Distribution Width SD 48.9 fl (35.1-43.9); Red Blood Count 4.32 M/mm3 (4.2-5.4); White Blood Count 4.7 K/mm3 (4.4-11.0)
[2020-09-22 10:02] LABS: ALB/GLOB Ratio 1.1 RATIO (0.9-2.4); AST(SGOT) 20 U/L (15-37); Alanine Aminotransfer ALT/SGPT 26 U/L (13-56); Albumin, Serum 3.6 g/dL (3.2-5.0); Alkaline Phosphatase 66 U/L (45-117); Anion Gap 4 (5-15); BUN 14 mg/dL (7-18); BUN/Creat Ratio 17.2 RATIO (10-20); Calcium,Total 8.6 mg/dL (8.5-10.1); Chloride 108 mmol/L (98-107); Creatinine, Serum 0.81 mg/dL (0.55-1.02); EST Glomerular Filtration Rate 74 mL/min (>60); Est Glom Filt Rate - Afr Amer 90 mL/min (>60); Globulin 3.2 g/dL (2.2-4.2); Glucose 66 mg/dL (74-106); Potassium 4.2 mmol/L (3.5-5.1); Protein, Total 6.8 g/dL (6.4-8.2); Sodium Level 141 mmol/L (136-145)
== END ==
PROVIDERS: PCP Internal Medicine; Referring Provider Internal Medicine Rheumatology; Visit Provider Internal Medicine Rheumatology
DX: M06.4 Inflammatory polyarthropathy (principal); M79.7 Fibromyalgia; M15.9 Polyosteoarthritis, unspecified; M85.80 Other specified disorders of bone density and structure, unspecified site; Z79.899 Other long term (current) drug therapy
CPT/HCPCS: 36415; 80053; 85025

== ENCOUNTER → 2020-10-10 16:35 | Outpatient (CLI) | payer MEDICARE, SELFPAY ==
[2020-10-10 09:41] VITALS: BMI 25.1
== END ==
PROVIDERS: PCP Internal Medicine; Referring Provider Obstetrics & Gynecology; Visit Provider Obstetrics & Gynecology
DX: R10.2 Pelvic and perineal pain (principal)
CPT/HCPCS: 87077; 87086; 87088

== ENCOUNTER → 2020-10-13 11:25 | Outpatient (CLI) | payer MEDICARE, SELFPAY ==
[2020-10-10 09:41] VITALS: BMI 25.1
--- NOTE | 2020-10-13 11:27 | US_ITS ---
STUDY: ULTRASOUND TRANSVAGINAL CLINICAL: Female, 70 years old. FULLNESS OF PELVIS, CURRENT UTI -- HX OF HYSTERECTOMY 1992 TECHNIQUE: Transvaginal COMPARISON: None. FINDINGS: There has been a previous hysterectomy Right ovary not visualized Normal left ovary, measuring 3.1 x 2.5 x 1.1 cm. There are multiple follicles without a dominant cyst. There is no free fluid in the pelvis. US/Transvaginal Non- IMPRESSION: No suspicious sonographic findings, previous uterine removal. Sonographically normal left ovary, right ovary not visualized Electronically Signed: Spencer Escobar MD at 17:12 EST , Service support ,
== END ==
PROVIDERS: PCP Internal Medicine; Referring Provider Obstetrics & Gynecology; Visit Provider Obstetrics & Gynecology
DX: R19.00 Intra-abdominal and pelvic swelling, mass and lump, unspecified site (principal)
CPT/HCPCS: 76830

== ENCOUNTER → 2021-01-24 08:48 | Outpatient (CLI) | payer MEDICARE, SELFPAY ==
[2020-10-10 09:41] VITALS: BMI 25.1
[2021-01-24 09:54] LABS: Absolute Lymphocyte Count 1.23 X10^3/uL (0.83-4.51); Absolute Neutrophil Count 2.4 X10^3/uL (2.0-7.7); Basophil# 0.02 X10^3/uL; Basophil% 0.5 % (0-1); Eosinophil# 0.12 X10^3/uL; Eosinophils% 2.8 % (0-5); Hematocrit 40.6 % (37-47); Hemoglobin 13.6 g/dL (12.0-15.0); Lymphocyte # 1.23 X10^3/ul (0.83-4.51); Lymphocyte % 28.9 % (19-41); Mean Corp Hgb Conc 33.5 g/dL (32-36); Mean Corpuscular Hgb 31.7 pg (27.0-32.0); Mean Corpuscular Volume 94.6 fL (81-99); Mean Platelet Vol. 10.2 fl (6.2-12.0); Monocyte# 0.43 X10^3/uL; Monocyte% 10.1 % (0-10); NRBC Flagged by Analyzer 0 % (0-5); Neutrophil # 2.44 X10^3/uL (2.7-7.7); Neutrophil % 57.5 % (47-70); Platelet Count 291 K/mm3 (150-450); RBC Distribution Width CV 13.7 % (11.6-14.6); RBC Distribution Width SD 47.3 fl (35.1-43.9); Red Blood Count 4.29 M/mm3 (4.2-5.4); White Blood Count 4.3 K/mm3 (4.4-11.0)
[2021-01-24 10:35] LABS: ALB/GLOB Ratio 1.2 RATIO (0.9-2.4); AST(SGOT) 25 U/L (15-37); Alanine Aminotransfer ALT/SGPT 27 U/L (13-56); Albumin, Serum 3.6 g/dL (3.2-5.0); Alkaline Phosphatase 70 U/L (45-117); Anion Gap 5 (5-15); BUN 14 mg/dL (7-18); BUN/Creat Ratio 14.4 RATIO (10-20); Calcium,Total 9.1 mg/dL (8.5-10.1); Chloride 109 mmol/L (98-107); Creatinine, Serum 0.97 mg/dL (0.55-1.02); EST Glomerular Filtration Rate 61 mL/min (>60); Est Glom Filt Rate - Afr Amer 73 mL/min (>60); Globulin 3.1 g/dL (2.2-4.2); Glucose 79 mg/dL (74-106); Potassium 4.3 mmol/L (3.5-5.1); Protein, Total 6.7 g/dL (6.4-8.2); Sodium Level 140 mmol/L (136-145)
== END ==
PROVIDERS: PCP Internal Medicine; Referring Provider Internal Medicine Rheumatology; Visit Provider Internal Medicine Rheumatology
DX: M06.4 Inflammatory polyarthropathy (principal); M79.7 Fibromyalgia; M15.9 Polyosteoarthritis, unspecified; M85.80 Other specified disorders of bone density and structure, unspecified site; Z79.899 Other long term (current) drug therapy
CPT/HCPCS: 36415; 80053; 85025

== ENCOUNTER → 2021-04-12 09:59 | Outpatient (CLI) | payer MEDICARE, SELFPAY ==
[2021-04-09 10:20] VITALS: BMI 25.2
[2021-04-12 12:03] LABS: Absolute Lymphocyte Count 1.25 X10^3/uL (0.83-4.51); Basophil# 0.03 X10^3/uL; Basophil% 0.6 % (0-1); Eosinophil# 0.09 X10^3/uL; Eosinophils% 1.9 % (0-5); Hematocrit 41.6 % (37-47); Hemoglobin 13.9 g/dL (12.0-15.0); Lymphocyte # 1.25 X10^3/ul (0.83-4.51); Lymphocyte % 25.9 % (19-41); Mean Corp Hgb Conc 33.4 g/dL (32-36); Mean Corpuscular Hgb 32.3 pg (27.0-32.0); Mean Corpuscular Volume 96.5 fL (81-99); Mean Platelet Vol. 10.6 fl (6.2-12.0); Monocyte# 0.49 X10^3/uL; Monocyte% 10.1 % (0-10); NRBC Flagged by Analyzer 0 % (0-5); Neutrophil # 2.95 X10^3/uL (2.7-7.7); Neutrophil % 61.1 % (47-70); Platelet Count 283 K/mm3 (150-450); RBC Distribution Width CV 14.3 % (11.6-14.6); RBC Distribution Width SD 50.8 fl (35.1-43.9); Red Blood Count 4.31 M/mm3 (4.2-5.4); White Blood Count 4.8 K/mm3 (4.4-11.0)
[2021-04-12 12:27] LABS: ALB/GLOB Ratio 1.2 RATIO (0.9-2.4); AST(SGOT) 18 U/L (15-37); Alanine Aminotransfer ALT/SGPT 29 U/L (13-56); Albumin, Serum 3.7 g/dL (3.2-5.0); Alkaline Phosphatase 72 U/L (45-117); Anion Gap 7 (5-15); BUN 13 mg/dL (7-18); Calcium,Total 9.1 mg/dL (8.5-10.1); Chloride 105 mmol/L (98-107); Creatinine, Serum 0.81 mg/dL (0.55-1.02); EST Glomerular Filtration Rate 74 mL/min (>60); Est Glom Filt Rate - Afr Amer 90 mL/min (>60); Globulin 3.2 g/dL (2.2-4.2); Glucose 62 mg/dL (74-106); Potassium 4.3 mmol/L (3.5-5.1); Protein, Total 6.9 g/dL (6.4-8.2); Sodium Level 141 mmol/L (136-145)
== END ==
PROVIDERS: PCP Internal Medicine; Referring Provider Internal Medicine Rheumatology; Visit Provider Internal Medicine Rheumatology
DX: M06.4 Inflammatory polyarthropathy (principal); M79.7 Fibromyalgia; M15.9 Polyosteoarthritis, unspecified; M85.80 Other specified disorders of bone density and structure, unspecified site; Z79.899 Other long term (current) drug therapy
CPT/HCPCS: 36415; 80053; 85025

== ENCOUNTER → 2021-07-10 08:06 | Outpatient (CLI) | payer MEDICARE, SELFPAY ==
[2021-07-10 09:58] LABS: Absolute Lymphocyte Count 1.48 X10^3/uL (0.83-4.51); Absolute Neutrophil Count 2.9 X10^3/uL (2.0-7.7); Basophil# 0.03 X10^3/uL; Basophil% 0.6 % (0-1); Eosinophil# 0.09 X10^3/uL; Eosinophils% 1.8 % (0-5); Hematocrit 43.2 % (37-47); Hemoglobin 14.4 g/dL (12.0-15.0); Lymphocyte # 1.48 X10^3/ul (0.83-4.51); Lymphocyte % 30.2 % (19-41); Mean Corp Hgb Conc 33.3 g/dL (32-36); Mean Corpuscular Hgb 31.6 pg (27.0-32.0); Mean Corpuscular Volume 94.9 fL (81-99); Mean Platelet Vol. 10.4 fl (6.2-12.0); Monocyte# 0.37 X10^3/uL; Monocyte% 7.6 % (0-10); NRBC Flagged by Analyzer 0 % (0-5); Neutrophil # 2.92 X10^3/uL (2.7-7.7); Neutrophil % 59.6 % (47-70); Platelet Count 299 K/mm3 (150-450); RBC Distribution Width CV 13.9 % (11.6-14.6); RBC Distribution Width SD 48.5 fl (35.1-43.9); Red Blood Count 4.55 M/mm3 (4.2-5.4); White Blood Count 4.9 K/mm3 (4.4-11.0)
[2021-07-10 10:41] LABS: AST(SGOT) 20 U/L (15-37); Alanine Aminotransfer ALT/SGPT 26 U/L (13-56); Albumin, Serum 3.6 g/dL (3.2-5.0); Alkaline Phosphatase 74 U/L (45-117); Anion Gap 1 (5-15); BUN 11 mg/dL (7-18); BUN/Creat Ratio 12.8 RATIO (10-20); Chloride 109 mmol/L (98-107); Creatinine, Serum 0.86 mg/dL (0.55-1.02); EST Glomerular Filtration Rate 69 mL/min (>60); Est Glom Filt Rate - Afr Amer 84 mL/min (>60); Globulin 3.5 g/dL (2.2-4.2); Glucose 87 mg/dL (74-106); Potassium 4.4 mmol/L (3.5-5.1); Protein, Total 7.1 g/dL (6.4-8.2); Sodium Level 140 mmol/L (136-145)
== END ==
PROVIDERS: PCP Internal Medicine; Referring Provider Internal Medicine Rheumatology; Visit Provider Internal Medicine Rheumatology
DX: M06.4 Inflammatory polyarthropathy (principal); M79.7 Fibromyalgia; M15.9 Polyosteoarthritis, unspecified; M85.80 Other specified disorders of bone density and structure, unspecified site; Z79.899 Other long term (current) drug therapy
CPT/HCPCS: 36415; 80053; 85025

== ENCOUNTER 2021-10-01 08:23 | Outpatient (CLI) | payer MEDICARE, SELFPAY ==
[2021-10-01 10:05] LABS: Absolute Lymphocyte Count 1.13 X10^3/uL (0.83-4.51); Absolute Neutrophil Count 3.2 X10^3/uL (2.0-7.7); Basophil# 0.02 X10^3/uL; Basophil% 0.4 % (0-1); Eosinophil# 0.13 X10^3/uL; Eosinophils% 2.6 % (0-5); Hematocrit 41.3 % (37-47); Lymphocyte # 1.13 X10^3/ul (0.83-4.51); Mean Corp Hgb Conc 33.9 g/dL (32-36); Mean Corpuscular Volume 94.3 fL (81-99); Mean Platelet Vol. 10.3 fl (6.2-12.0); Monocyte# 0.46 X10^3/uL; Monocyte% 9.3 % (0-10); NRBC Flagged by Analyzer 0 % (0-5); Neutrophil # 3.17 X10^3/uL (2.7-7.7); Neutrophil % 64.5 % (47-70); Platelet Count 276 K/mm3 (150-450); RBC Distribution Width CV 14.2 % (11.6-14.6); RBC Distribution Width SD 48.1 fl (35.1-43.9); Red Blood Count 4.38 M/mm3 (4.2-5.4); White Blood Count 4.9 K/mm3 (4.4-11.0)
[2021-10-01 10:23] LABS: AST(SGOT) 23 U/L (15-37); Alanine Aminotransfer ALT/SGPT 25 U/L (13-56); Albumin, Serum 3.4 g/dL (3.2-5.0); Alkaline Phosphatase 71 U/L (45-117); Anion Gap 6 (5-15); BUN 15 mg/dL (7-18); BUN/Creat Ratio 18.3 RATIO (10-20); Calcium,Total 8.6 mg/dL (8.5-10.1); Chloride 109 mmol/L (98-107); Creatinine, Serum 0.82 mg/dL (0.55-1.02); EST Glomerular Filtration Rate 73 mL/min (>60); Est Glom Filt Rate - Afr Amer 89 mL/min (>60); Globulin 3.3 g/dL (2.2-4.2); Glucose 87 mg/dL (74-106); Potassium 4.1 mmol/L (3.5-5.1); Protein, Total 6.7 g/dL (6.4-8.2); Sodium Level 140 mmol/L (136-145)
== END 2021-10-01 23:59 | disposition short-term general hospital (02) ==
LOC: MTLAB 08:24
PROVIDERS: PCP Internal Medicine; Referring Provider Internal Medicine Rheumatology; Visit Provider Internal Medicine Rheumatology
DX: M06.4 Inflammatory polyarthropathy (principal); M79.7 Fibromyalgia; M15.9 Polyosteoarthritis, unspecified; M85.80 Other specified disorders of bone density and structure, unspecified site; Z79.899 Other long term (current) drug therapy
CPT/HCPCS: 36415; 80053; 85025

== ENCOUNTER 2021-10-11 09:51 | Outpatient (CLI) | payer MEDICARE, SELFPAY ==
--- NOTE | 2021-10-11 09:53 | BI_ITS ---
MAMMOGRAPHY - BILATERAL SCREENING REASON FOR EXAM: Female, 71 years old. Routine annual screening examination. PERTINENT HISTORY: Grandmother with breast cancer. TECHNIQUE: Digital bilateral breast reymundo (3D mammographic acquisition) in the CC and MLO projections. 2-D mediolateral oblique (MLO) and craniocaudad (CC) views of both breasts were obtained. CAD: Full Field Digital Mammography with Computer Added Detection was performed. COMPARISON: Comparison is made with prior study dated 09/19/2020 and 09/15/2019. FINDINGS: Breast Composition: The breasts are heterogeneously dense, which may obscure small masses. There are no dominant masses or suspicious calcifications. No other significant abnormalities are identified. There has been no significant change since the prior study. BI/SCRN MAMM (CAD)W/REYMUNDO BILAT IMPRESSION: Stable bilateral screening mammogram. Yearly follow-up mammogram recommended. (A) ASSESSMENT CATEGORY: BIRADS Category 1: Negative. A letter regarding these results will be sent to the patient by the facility within 30 days. Approximately 10% of breast cancers are not detected by mammography. A normal mammogram should not delay biopsy of a clinically suspicious abnormality. [id number] Electronically Signed: Kendrick Kurtz MD at 11:09 EST ,
== END 2021-10-11 23:59 | disposition home or self-care (01) ==
LOC: OPBI 09:52
PROVIDERS: PCP Internal Medicine; Referring Provider Obstetrics & Gynecology; Visit Provider Obstetrics & Gynecology
DX: Z12.31 Encounter for screening mammogram for malignant neoplasm of breast (principal)
CPT/HCPCS: 77063; 77067

== ENCOUNTER → 2022-01-14 | Outpatient (CLI) | payer MEDICARE, SELFPAY ==
[2022-01-14 10:09] LABS: Absolute Lymphocyte Count 1.31 X10^3/uL (0.83-4.51); Absolute Neutrophil Count 2.9 X10^3/uL (2.0-7.7); Basophil# 0.02 X10^3/uL; Basophil% 0.4 % (0-1); Eosinophil# 0.12 X10^3/uL; Eosinophils% 2.5 % (0-5); Hemoglobin 13.6 g/dL (12.0-15.0); Lymphocyte # 1.31 X10^3/ul (0.83-4.51); Lymphocyte % 27.1 % (19-41); Mean Corp Hgb Conc 33.2 g/dL (32-36); Mean Corpuscular Hgb 32.5 pg (27.0-32.0); Mean Corpuscular Volume 97.9 fL (81-99); Mean Platelet Vol. 10.6 fl (6.2-12.0); Monocyte% 10.4 % (0-10); NRBC Flagged by Analyzer 0 % (0-5); Neutrophil # 2.87 X10^3/uL (2.7-7.7); Neutrophil % 59.4 % (47-70); Platelet Count 266 K/mm3 (150-450); RBC Distribution Width CV 14.4 % (11.6-14.6); RBC Distribution Width SD 51.5 fl (35.1-43.9); Red Blood Count 4.19 M/mm3 (4.2-5.4); White Blood Count 4.8 K/mm3 (4.4-11.0)
[2022-01-14 10:39] LABS: ALB/GLOB Ratio 1.2 RATIO (0.9-2.4); AST(SGOT) 22 U/L (15-37); Alanine Aminotransfer ALT/SGPT 31 U/L (13-56); Albumin, Serum 3.6 g/dL (3.2-5.0); Alkaline Phosphatase 70 U/L (45-117); Anion Gap 6 (5-15); BUN 13 mg/dL (7-18); Chloride 106 mmol/L (98-107); Creatinine, Serum 0.81 mg/dL (0.55-1.02); EST Glomerular Filtration Rate 74 mL/min (>60); Est Glom Filt Rate - Afr Amer 89 mL/min (>60); Globulin 3.1 g/dL (2.2-4.2); Glucose 71 mg/dL (74-106); Potassium 4.2 mmol/L (3.5-5.1); Protein, Total 6.7 g/dL (6.4-8.2); Sodium Level 141 mmol/L (136-145)
== END | disposition home or self-care (01) ==
LOC: MTLAB 08:43
PROVIDERS: PCP Internal Medicine; Referring Provider Internal Medicine Rheumatology; Visit Provider Internal Medicine Rheumatology
DX: M06.4 Inflammatory polyarthropathy (principal); M79.7 Fibromyalgia; M15.9 Polyosteoarthritis, unspecified; M85.80 Other specified disorders of bone density and structure, unspecified site; Z79.899 Other long term (current) drug therapy
CPT/HCPCS: 36415; 80053; 85025

== ENCOUNTER → 2022-04-16 | Outpatient (CLI) | payer MEDICARE, SELFPAY ==
[2022-04-16 10:00] LABS: Absolute Lymphocyte Count 1.24 X10^3/uL (0.83-4.51); Absolute Neutrophil Count 2.9 X10^3/uL (2.0-7.7); Basophil# 0.02 X10^3/uL; Basophil% 0.4 % (0-1); Eosinophils% 2.1 % (0-5); Hematocrit 41.4 % (37-47); Hemoglobin 13.8 g/dL (12.0-15.0); Lymphocyte # 1.24 X10^3/ul (0.83-4.51); Lymphocyte % 26.5 % (19-41); Mean Corp Hgb Conc 33.3 g/dL (32-36); Mean Corpuscular Hgb 32.5 pg (27.0-32.0); Mean Corpuscular Volume 97.6 fL (81-99); Mean Platelet Vol. 10.3 fl (6.2-12.0); Monocyte# 0.42 X10^3/uL; NRBC Flagged by Analyzer 0 % (0-5); Neutrophil # 2.89 X10^3/uL (2.7-7.7); Neutrophil % 61.8 % (47-70); Platelet Count 308 K/mm3 (150-450); RBC Distribution Width CV 14.3 % (11.6-14.6); Red Blood Count 4.24 M/mm3 (4.2-5.4); White Blood Count 4.7 K/mm3 (4.4-11.0)
[2022-04-16 10:49] LABS: AST(SGOT) 23 U/L (15-37); Alanine Aminotransfer ALT/SGPT 29 U/L (13-56); Albumin, Serum 3.5 g/dL (3.2-5.0); Alkaline Phosphatase 76 U/L (45-117); Anion Gap 4 (5-15); BUN 16 mg/dL (7-18); BUN/Creat Ratio 18.8 RATIO (10-20); Chloride 108 mmol/L (98-107); Creatinine, Serum 0.85 mg/dL (0.55-1.02); EST Glomerular Filtration Rate 70 mL/min (>60); Est Glom Filt Rate - Afr Amer 85 mL/min (>60); Globulin 3.4 g/dL (2.2-4.2); Glucose 72 mg/dL (74-106); Potassium 4.4 mmol/L (3.5-5.1); Protein, Total 6.9 g/dL (6.4-8.2); Sodium Level 142 mmol/L (136-145)
== END | disposition home or self-care (01) ==
LOC: MTLAB 08:26
PROVIDERS: PCP Internal Medicine; Referring Provider Internal Medicine Rheumatology; Visit Provider Internal Medicine Rheumatology
DX: M06.4 Inflammatory polyarthropathy (principal); M79.7 Fibromyalgia; M15.9 Polyosteoarthritis, unspecified; M85.80 Other specified disorders of bone density and structure, unspecified site; Z79.899 Other long term (current) drug therapy
CPT/HCPCS: 36415; 80053; 85025

== ENCOUNTER → 2022-07-08 | Outpatient (CLI) | payer MEDICARE, SELFPAY ==
[2022-07-08 10:01] LABS: Absolute Lymphocyte Count 1.14 X10^3/uL (0.83-4.51); Absolute Neutrophil Count 2.8 X10^3/uL (2.0-7.7); Basophil# 0.02 X10^3/uL; Basophil% 0.5 % (0-1); Eosinophil# 0.07 X10^3/uL; Eosinophils% 1.6 % (0-5); Hematocrit 40.5 % (37-47); Hemoglobin 13.8 g/dL (12.0-15.0); Lymphocyte # 1.14 X10^3/ul (0.83-4.51); Mean Corp Hgb Conc 34.1 g/dL (32-36); Mean Corpuscular Hgb 32.9 pg (27.0-32.0); Mean Corpuscular Volume 96.7 fL (81-99); Mean Platelet Vol. 10.2 fl (6.2-12.0); Monocyte# 0.38 X10^3/uL; Monocyte% 8.7 % (0-10); NRBC Flagged by Analyzer 0 % (0-5); Neutrophil # 2.76 X10^3/uL (2.7-7.7); Platelet Count 267 K/mm3 (150-450); RBC Distribution Width CV 14.2 % (11.6-14.6); RBC Distribution Width SD 49.5 fl (35.1-43.9); Red Blood Count 4.19 M/mm3 (4.2-5.4); White Blood Count 4.4 K/mm3 (4.4-11.0)
[2022-07-08 10:31] LABS: ALB/GLOB Ratio 1.1 RATIO (0.9-2.4); AST(SGOT) 25 U/L (15-37); Alanine Aminotransfer ALT/SGPT 36 U/L (13-56); Albumin, Serum 3.5 g/dL (3.2-5.0); Alkaline Phosphatase 76 U/L (45-117); Anion Gap 6 (5-15); BUN 14 mg/dL (7-18); BUN/Creat Ratio 17.3 RATIO (10-20); Calcium,Total 8.9 mg/dL (8.5-10.1); Chloride 108 mmol/L (98-107); Creatinine, Serum 0.81 mg/dL (0.55-1.02); EST Glomerular Filtration Rate 74 mL/min (>60); Est Glom Filt Rate - Afr Amer 90 mL/min (>60); Globulin 3.2 g/dL (2.2-4.2); Glucose 83 mg/dL (74-106); Potassium 4.2 mmol/L (3.5-5.1); Protein, Total 6.7 g/dL (6.4-8.2); Sodium Level 141 mmol/L (136-145)
== END | disposition home or self-care (01) ==
PROVIDERS: PCP Internal Medicine; Visit Provider Internal Medicine Rheumatology
DX: M06.4 Inflammatory polyarthropathy (principal); M79.7 Fibromyalgia; M15.9 Polyosteoarthritis, unspecified; M85.80 Other specified disorders of bone density and structure, unspecified site
CPT/HCPCS: 36415; 80053; 85025

== ENCOUNTER → 2022-10-03 | Outpatient (CLI) | payer MEDICARE, SELFPAY ==
[2022-10-03 10:02] LABS: Absolute Lymphocyte Count 1.26 X10^3/uL (0.83-4.51); Absolute Neutrophil Count 3.5 X10^3/uL (2.0-7.7); Basophil# 0.03 X10^3/uL; Basophil% 0.6 % (0-1); Eosinophil# 0.14 X10^3/uL; Eosinophils% 2.7 % (0-5); Lymphocyte # 1.26 X10^3/ul (0.83-4.51); Lymphocyte % 23.9 % (19-41); Mean Corp Hgb Conc 33.3 g/dL (32-36); Mean Corpuscular Hgb 32.2 pg (27.0-32.0); Mean Corpuscular Volume 96.6 fL (81-99); Mean Platelet Vol. 10.2 fl (6.2-12.0); Monocyte# 0.35 X10^3/uL; Monocyte% 6.6 % (0-10); NRBC Flagged by Analyzer 0 % (0-5); Neutrophil # 3.49 X10^3/uL (2.7-7.7); Platelet Count 329 K/mm3 (150-450); RBC Distribution Width SD 49.8 fl (35.1-43.9); Red Blood Count 4.35 M/mm3 (4.2-5.4); White Blood Count 5.3 K/mm3 (4.4-11.0)
[2022-10-03 10:16] LABS: AST(SGOT) 25 U/L (15-37); Alanine Aminotransfer ALT/SGPT 30 U/L (13-56); Albumin, Serum 3.4 g/dL (3.2-5.0); Alkaline Phosphatase 74 U/L (45-117); Anion Gap 6 (5-15); BUN 12 mg/dL (7-18); BUN/Creat Ratio 13.5 RATIO (10-20); Calcium,Total 8.9 mg/dL (8.5-10.1); Chloride 108 mmol/L (98-107); Creatinine, Serum 0.89 mg/dL (0.55-1.02); EST Glomerular Filtration Rate 67 mL/min (>60); Est Glom Filt Rate - Afr Amer 81 mL/min (>60); Globulin 3.5 g/dL (2.2-4.2); Glucose 78 mg/dL (74-106); Potassium 4.6 mmol/L (3.5-5.1); Protein, Total 6.9 g/dL (6.4-8.2); Sodium Level 143 mmol/L (136-145)
== END | disposition home or self-care (01) ==
PROVIDERS: PCP Internal Medicine; Referring Provider Internal Medicine Rheumatology; Visit Provider Internal Medicine Rheumatology
DX: M06.4 Inflammatory polyarthropathy (principal); M79.7 Fibromyalgia; M15.9 Polyosteoarthritis, unspecified; M85.80 Other specified disorders of bone density and structure, unspecified site; Z79.899 Other long term (current) drug therapy
CPT/HCPCS: 36415; 80053; 85025

== ENCOUNTER → 2022-10-14 | Outpatient (CLI) | payer MEDICARE, SELFPAY ==
--- NOTE | 2022-10-14 07:53 | BI_ITS ---
MAMMOGRAPHY - BILATERAL SCREENING REASON FOR EXAM: Female, 72 years old. Routine annual screening examination. PERTINENT HISTORY: Grandmother with breast cancer. TECHNIQUE: Digital bilateral breast reymundo (3D mammographic acquisition) in the CC and MLO projections. 2-D mediolateral oblique (MLO) and craniocaudad (CC) views of both breasts were obtained. CAD: Full Field Digital Mammography with Computer Added Detection was performed. COMPARISON: Comparison is made with prior study dated 10/11/2021 and 09/19/2020. FINDINGS: Breast Composition: The breasts are heterogeneously dense, which may obscure small masses. There are no dominant masses or suspicious calcifications. There is a 3.6 mm well-defined nodule in the deep central medial aspect of the left breast. This most likely represents a small lymph node. Correlation with ultrasound is recommended. No other significant abnormalities are identified. BI/SCRN MAMM (CAD)W/REYMUNDO BILAT IMPRESSION: 3.6 mm well-defined nodule in the deep central medial aspect of the left breast. Correlation with ultrasound is recommended. ASSESSMENT CATEGORY: BIRADS Category 0: Incomplete. Need additional imaging evaluation. A letter regarding these results will be sent to the patient by the facility within 30 days. Approximately 10% of breast cancers are not detected by mammography. A normal mammogram should not delay biopsy of a clinically suspicious abnormality. [id number] Electronically Signed: Kendrick Kurtz MD at 9:24 EST ,
== END | disposition home or self-care (01) ==
LOC: OPBI 07:51
PROVIDERS: PCP Internal Medicine; Referring Provider Nurse Practitioner Women's Health; Visit Provider Nurse Practitioner Women's Health
DX: Z12.31 Encounter for screening mammogram for malignant neoplasm of breast (principal)
CPT/HCPCS: 77063; 77067

== ENCOUNTER → 2022-10-17 | Outpatient (CLI) | payer MEDICARE, SELFPAY ==
--- NOTE | 2022-10-17 07:49 | US_ITS ---
STUDY: ULTRASOUND BREAST - LEFT REASON FOR EXAM: Female, 72 years old. Abnormal screening mammogram. TECHNIQUE: Axial and longitudinal images of the LEFT breast were performed with a high resolution ultrasound transducer. # OF IMAGES: 15 COMPARISON: Comparison is made with prior mammogram dated 10/14/2022. FINDINGS: LEFT Breast: The mammographic and mildly corresponds to a 6 mm x 5 mm x 3 mm predominantly cystic nodule with septations within it. This is at the 10 o''clock position of the breast at 4 cm from the nipple. Biopsy is recommended. US/Breast Limited Unilateral IMPRESSION: Complex cystic structure measuring 6 mm x 5 mm x 3 mm is seen at the 10 o''clock position of the breast at 4 cm from the nipple. Biopsy recommended. ASSESSMENT CATEGORY: BIRADS Category 4: Suspicious - Biopsy Should Be Considered. A letter regarding these results will be sent to the patient by the facility within 30 days. Electronically Signed: Kendrick Kurtz MD at 10:28 EST ,
== END | disposition home or self-care (01) ==
LOC: OPUS 07:47
PROVIDERS: PCP Internal Medicine; Visit Provider Nurse Practitioner Women's Health
DX: R92.8 Other abnormal and inconclusive findings on diagnostic imaging of breast (principal)
CPT/HCPCS: 76642

== ENCOUNTER → 2022-10-23 | Outpatient (CLI) | payer MEDICARE, SELFPAY ==
--- NOTE | 2022-10-23 | BRBX_PTH ---
PATIENT: HEATHER GRISSOM LOC: [facility] U#:[id number] AGE/SX: 72/F ROOM: RE10/23/[address]: Dr. Teresa Zamarripa MD : 1950 BED: DIS: 10/23/2022 SPEC #: [id number] RECD: 10/23/22 13:28 STATUS: RONNA RESally #: [id number] MARICEL: 10/23/22 00:[address]: Teresa Zamarripa DEPT: SURGICAL PATHOLOGY RECD BY: Ant Dang ENTERED: 10/24/22 09:14 SP TYPE: BREAST BX OTHR DR: Dr. Alissa Jimenes, DO Tissues: Left breast, NOS Procedures: Surgery Specimen Level IV HEADER OPERATION: Left breast biopsy cyst PRE-OP DIAGNOSIS: Left breast cyst TISSUE SUBMITTED: Left breast 10 o?clock, 5 cm from nipple MICROSCOPIC DIAGNOSIS Left breast, 10 o?clock, 5 cm from nipple, core biopsy: Fibrocystic changes. Negative for atypia or malignancy. See comment. JUANA:esperanza 10/25/2022 COMMENT Correlation with clinical, radiologic findings and appropriate follow up are necessary. MICROSCOPIC DESCRIPTION Slides are reviewed. GROSS DESCRIPTION Received in fixative is one container labeled with the patient's name and designated left breast. The specimen consists of multiple elongated fragments of shetty-yellow fibroadipose tissue that in aggregate measure 1.5 x 0.7 x 0.1 cm. The entire specimen is submitted in one cassette. / JUANA:esperanza 10/24/2022 TC:5 CPT: [id number]
== END | disposition home or self-care (01) ==
LOC: LABSPEC 16:33
PROVIDERS: PCP Internal Medicine; Referring Provider Surgery; Visit Provider Surgery
DX: N60.02 Solitary cyst of left breast (principal)
CPT/HCPCS: 88305

== ENCOUNTER → 2022-12-24 | Outpatient (CLI) | payer MEDICARE, SELFPAY ==
[2022-12-24 09:56] LABS: Absolute Lymphocyte Count 1.25 X10^3/uL (0.83-4.51); Absolute Neutrophil Count 2.9 X10^3/uL (2.0-7.7); Basophil# 0.03 X10^3/uL; Basophil% 0.6 % (0-1); Eosinophil# 0.07 X10^3/uL; Eosinophils% 1.5 % (0-5); Hematocrit 42.5 % (37-47); Lymphocyte # 1.25 X10^3/ul (0.83-4.51); Lymphocyte % 26.7 % (19-41); Mean Corp Hgb Conc 32.9 g/dL (32-36); Mean Corpuscular Hgb 31.8 pg (27.0-32.0); Mean Corpuscular Volume 96.6 fL (81-99); Mean Platelet Vol. 9.9 fl (6.2-12.0); Monocyte# 0.39 X10^3/uL; Monocyte% 8.3 % (0-10); NRBC Flagged by Analyzer 0 % (0-5); Neutrophil # 2.94 X10^3/uL (2.7-7.7); Neutrophil % 62.7 % (47-70); Platelet Count 280 K/mm3 (150-450); RBC Distribution Width CV 14.2 % (11.6-14.6); RBC Distribution Width SD 50.4 fl (35.1-43.9); White Blood Count 4.7 K/mm3 (4.4-11.0)
[2022-12-24 10:25] LABS: ALB/GLOB Ratio 1.1 RATIO (0.9-2.4); AST(SGOT) 32 U/L (15-37); Alanine Aminotransfer ALT/SGPT 45 U/L (13-56); Albumin, Serum 3.6 g/dL (3.2-5.0); Alkaline Phosphatase 75 U/L (45-117); Anion Gap 4 (5-15); BUN 16 mg/dL (7-18); BUN/Creat Ratio 19.4 RATIO (10-20); Calcium,Total 9.2 mg/dL (8.5-10.1); Chloride 109 mmol/L (98-107); Creatinine, Serum 0.82 mg/dL (0.55-1.02); EST Glomerular Filtration Rate 73 mL/min (>60); Est Glom Filt Rate - Afr Amer 88 mL/min (>60); Globulin 3.3 g/dL (2.2-4.2); Glucose 77 mg/dL (74-106); Protein, Total 6.9 g/dL (6.4-8.2); Sodium Level 141 mmol/L (136-145)
== END | disposition home or self-care (01) ==
LOC: MTLAB 08:31
PROVIDERS: PCP Internal Medicine; Referring Provider Internal Medicine Rheumatology; Visit Provider Internal Medicine Rheumatology
DX: M06.4 Inflammatory polyarthropathy (principal); M79.7 Fibromyalgia; M15.9 Polyosteoarthritis, unspecified; M85.80 Other specified disorders of bone density and structure, unspecified site; Z79.899 Other long term (current) drug therapy
CPT/HCPCS: 36415; 80053; 85025

== ENCOUNTER → 2023-03-25 | Outpatient (CLI) | payer MEDICARE, SELFPAY ==
[2023-03-25 10:08] LABS: Absolute Lymphocyte Count 1.22 X10^3/uL (0.83-4.51); Absolute Neutrophil Count 2.8 X10^3/uL (2.0-7.7); Basophil# 0.02 X10^3/uL; Basophil% 0.5 % (0-1); Eosinophil# 0.09 X10^3/uL; Hematocrit 39.3 % (37-47); Hemoglobin 13.7 g/dL (12.0-15.0); Lymphocyte # 1.22 X10^3/ul (0.83-4.51); Lymphocyte % 27.5 % (19-41); Mean Corp Hgb Conc 34.9 g/dL (32-36); Mean Corpuscular Hgb 33.3 pg (27.0-32.0); Mean Corpuscular Volume 95.4 fL (81-99); Mean Platelet Vol. 10.4 fl (6.2-12.0); Monocyte# 0.29 X10^3/uL; Monocyte% 6.5 % (0-10); NRBC Flagged by Analyzer 0 % (0-5); Neutrophil % 63.3 % (47-70); Platelet Count 285 K/mm3 (150-450); RBC Distribution Width CV 14.5 % (11.6-14.6); Red Blood Count 4.12 M/mm3 (4.2-5.4); White Blood Count 4.4 K/mm3 (4.4-11.0)
[2023-03-25 10:59] LABS: ALB/GLOB Ratio 1.2 RATIO (0.9-2.4); AST(SGOT) 24 U/L (15-37); Alanine Aminotransfer ALT/SGPT 25 U/L (13-56); Albumin, Serum 3.4 g/dL (3.2-5.0); Alkaline Phosphatase 72 U/L (45-117); Anion Gap 3 (5-15); BUN 10 mg/dL (7-18); BUN/Creat Ratio 12.8 RATIO (10-20); Calcium,Total 8.4 mg/dL (8.5-10.1); Chloride 112 mmol/L (98-107); Creatinine, Serum 0.78 mg/dL (0.55-1.02); EST Glomerular Filtration Rate 77 mL/min (>60); Est Glom Filt Rate - Afr Amer 93 mL/min (>60); Globulin 2.9 g/dL (2.2-4.2); Glucose 99 mg/dL (74-106); Potassium 4.4 mmol/L (3.5-5.1); Protein, Total 6.3 g/dL (6.4-8.2); Sodium Level 142 mmol/L (136-145)
== END | disposition home or self-care (01) ==
LOC: MTLAB 07:25
PROVIDERS: PCP Internal Medicine; Referring Provider Internal Medicine Rheumatology; Visit Provider Internal Medicine Rheumatology
DX: M06.4 Inflammatory polyarthropathy (principal); Z79.899 Other long term (current) drug therapy
CPT/HCPCS: 36415; 80053; 85025

== ENCOUNTER → 2023-04-24 | Outpatient (CLI) | payer MEDICARE, SELFPAY ==
--- NOTE | 2023-04-24 08:21 | US_ITS ---
EXAM: Diagnostic unilateral left breast ultrasound. REASON FOR EXAM: Female, 72 years old. Follow-up left breast biopsy. PERTINENT HISTORY: No personal or family history of breast cancer reported. TECHNIQUE: Real-time villalobos scale and color sonographic images were obtained of the left upper inner breast at the 10:00 position COMPARISON: Breast ultrasound from 10/23/2022, 10/17/2022. Screening mammogram from 10/14/2022. FINDINGS: Ultrasound findings: There is a 0.3 x 0.3 x 0.2 cm septated slightly complex cystic lesion at the 10:00 position, approximately 4 cm posterior to the nipple. This previously measured 0.6 x 0.5 x 0.3 cm and appears to have slightly decreased in size. There is a biopsy marker in the adjacent soft tissues. US/Breast Limited Unilateral IMPRESSION: 0.3 x 0.3 x 0.2 cm septated slightly complex cystic lesion at the 10:00 position has slightly decreased in size since October,. Previous biopsy demonstrated fibrocystic changes with no findings of malignancy. Findings are likely benign given interval decrease in size. A six-month follow-up ultrasound is recommended at the time of patient''s annual screening mammogram study. ASSESSMENT CATEGORY: BIRADS Category 3: Probably Benign - Short-Interval Follow-up Suggested. A letter regarding these results will be sent to the patient by the facility within 30 days. RECOMMENDATION: A six-month follow-up ultrasound is recommended at the time of patient''s annual screening mammogram study. Approximately 10% of breast cancers are not detected by mammography. A normal mammogram should not delay biopsy of a clinically suspicious abnormality. Electronically Signed: Lio Castillo DO at 13:14 EDT ,
== END | disposition home or self-care (01) ==
PROVIDERS: PCP Internal Medicine; Referring Provider Surgery; Visit Provider Surgery
DX: R92.8 Other abnormal and inconclusive findings on diagnostic imaging of breast (principal)
CPT/HCPCS: 76642

== ENCOUNTER → 2023-06-12 | Outpatient (CLI) | payer MEDICARE, SELFPAY ==
[2023-06-12 10:09] LABS: Absolute Lymphocyte Count 1.26 X10^3/uL (0.83-4.51); Absolute Neutrophil Count 3.5 X10^3/uL (2.0-7.7); Basophil# 0.03 X10^3/uL; Basophil% 0.6 % (0-1); Eosinophil# 0.12 X10^3/uL; Eosinophils% 2.2 % (0-5); Hematocrit 42.3 % (37-47); Hemoglobin 13.8 g/dL (12.0-15.0); Lymphocyte # 1.26 X10^3/ul (0.83-4.51); Lymphocyte % 23.6 % (19-41); Mean Corp Hgb Conc 32.6 g/dL (32-36); Mean Corpuscular Hgb 32.2 pg (27.0-32.0); Mean Corpuscular Volume 98.6 fL (81-99); Mean Platelet Vol. 10.4 fl (6.2-12.0); Monocyte# 0.47 X10^3/uL; Monocyte% 8.8 % (0-10); NRBC Flagged by Analyzer 0 % (0-5); Neutrophil # 3.45 X10^3/uL (2.7-7.7); Neutrophil % 64.6 % (47-70); Platelet Count 293 K/mm3 (150-450); RBC Distribution Width CV 14.4 % (11.6-14.6); RBC Distribution Width SD 51.9 fl (35.1-43.9); Red Blood Count 4.29 M/mm3 (4.2-5.4); White Blood Count 5.3 K/mm3 (4.4-11.0)
[2023-06-12 10:45] LABS: ALB/GLOB Ratio 1.1 RATIO (0.9-2.4); AST(SGOT) 26 U/L (15-37); Alanine Aminotransfer ALT/SGPT 38 U/L (13-56); Albumin, Serum 3.5 g/dL (3.2-5.0); Alkaline Phosphatase 72 U/L (45-117); Anion Gap 4 (5-15); BUN 13 mg/dL (7-18); BUN/Creat Ratio 15.4 RATIO (10-20); Calcium,Total 9.1 mg/dL (8.5-10.1); Chloride 111 mmol/L (98-107); Creatinine, Serum 0.84 mg/dL (0.55-1.02); EST Glomerular Filtration Rate 70 mL/min (>60); Est Glom Filt Rate - Afr Amer 85 mL/min (>60); Globulin 3.1 g/dL (2.2-4.2); Glucose 88 mg/dL (74-106); Potassium 4.4 mmol/L (3.5-5.1); Protein, Total 6.6 g/dL (6.4-8.2); Sodium Level 142 mmol/L (136-145)
== END | disposition home or self-care (01) ==
LOC: MTLAB 08:17
PROVIDERS: PCP Internal Medicine; Referring Provider Internal Medicine Rheumatology; Visit Provider Internal Medicine Rheumatology
DX: M06.4 Inflammatory polyarthropathy (principal); M79.7 Fibromyalgia; M15.9 Polyosteoarthritis, unspecified; M85.80 Other specified disorders of bone density and structure, unspecified site; Z79.899 Other long term (current) drug therapy
CPT/HCPCS: 36415; 80053; 85025

== ENCOUNTER → 2023-09-16 | Outpatient (CLI) | payer MEDICARE, SELFPAY ==
--- OUTSIDE RECORDS SUMMARY | 2023-09-16 08:14 | XMS RPT_ITS | CCD ---
Author Name Unknown Address [address] [place] [address] Organization [facility] Care Team Providers Care Tread Tuber Machine Operator Name Role Phone CalderaKristy Unavailable Unavailable Caldera, Kristy M Unavailable Unavailable Caldera, Kristy M Unavailable Unavailable Caldera, Kristy M Unavailable Unavailable Yaima Womack MD Unavailable [phone] Alissa Jimenes Unavailable Viviane Ramirez Unavailable Bushra Diana Unavailable Unavailable Unavailable Unavailable Harry Hoskins Unavailable Deidra Beckham Unavailable Unavailable Bushra Diana Unavailable Unavailable Corina Rabago Unavailable Unavailable Alissa Jimenes DO Unavailable Viviane Ramirez Unavailable Dr. Harry Hoskins Unavailable [phone] Corina Rabago LPN Unavailable Unavailable Cindy PERDOMO Kayela Unavailable Unavailable Deidra Beckham CMA Unavailable Unavailable Messenger Bushra RODRIGUES Unavailable Unavailable Unavailable Unavailable Unavailable Unavailable Alissa Jimenes DO Attending Unavailable Alissa Jimenes DO Referring Unavailable Alissa Jimenes DO Consulting Unavailable Medications Current Medications Medication Drug Class(es) Dates Sig (Normalized) Sig (Original) meloxicam 15 mg oral tablet (3 sources) Nonsteroidal Anti-inflammatory Drug Start: 06-28-2022 take 1 tablet by mouth once daily Meloxicam 15 MG Oral Tablet 1 (one) Tablet qd with for 0 days Quantity: 30 {Tablet} Refills: 0 Ordered: 28-Jun-2022 Alissa Jimenes DO, DO, Kathleen Start : 28-Jun-2022 Active Completed/Discontinued Medications Medication Drug Class(es) Dates Sig (Normalized) Sig (Original) amoxicillin 875 mg / clavulanate 125 mg oral tablet (16 sources) Penicillin-class Antibacterial Start: 01-23-2018 End: 06-12-2020 take 1 tablet by mouth twice daily Augmentin 875-125 MG Oral Tablet 1 Tablet twice daily for 0 days Quantity: 20 {Tablet} Refills: 0 Ordered: 23-Jan-2018 Deidra Beckham CMA Start : 23-Jan-2018 End : 12-Jun-2020 Discontinued Comments: This order discontinued per [employer]. Problems Active Problems Problem Classification Problem Date Documented Da te Episodic/Chronic Abdominal pain (6 sources) Flank pain; Translations: [Flank pain] 06-25-2022 Episodic Disorders of lipid metabolism (20 sources) Hypercholesterol emia; Translations: [Hypercholestero lemia] 01-23-2018 Chronic Headache; including migraine (20 sources) Headache; Translations: [Headache] Resolved: 06-12-2020 01-23-2018 Episodic Past or Other Problems Problem Classification Problem Date Documented Da te Episodic/Chronic Genitourinary symptoms and ill-defined conditions (4 sources) Dysuria; Translations: [Dysuria] Onset: 07-21-2017 07-21-2017 Episodic Influenza (13 sources) Influenza Nonspecific chest pain (16 sources) Chest pain; Translations: [Other chest pain] Resolved: 03-06-2009 07-18-2015 Episodic Results Test Name Value Interpretation Reference Range Facil ity Vital Signs Date Time Vital Sign Value Performing Clinician Facility 06-25-2022 08:39-0400 Body height 160.02 cm [facility]; [facility] Work Phone: 06-25-2022 08:39-0400 Body mass index (BMI) [Ratio] 24.98 kg/m2 [facility]; [facility] Work Phone: 06-25-2022 08:39-0400 Body surface area Derived from formula 1.67 m2 [facility]; [facility] Work Phone: 06-25-2022 08:39-0400 Body temperature 96.9 [degF] [facility] Work Phone: 06-25-2022 08:39-0400 Body weight 63.96 kg [facility] Work Phone: 06-25-2022 08:39-0400 Diastolic blood pressure 82 mm[Hg] [facility]; [facility] Work Phone: Encounters Encounter Date Encounter Type Care Provider Facility Start: 07-29-2022 ambulatory Alissajeff Jimenes DO [facility] Start: 06-25-2022 End: 06-25-2022 Office outpatient visit 15 minutes Alissa Jimenes DO Work Phone: [facility] Start: 06-25-2022 Review Alissa Fitzgerald n DO Work Phone: [facility] Start: 06-15-2020 End: 06-15-2020 Office outpatient visit 15 minutes Alissa Jimenes [facility] Start: 06-15-2020 Review Alissa Jimenes [facility] Start: 06-12-2020 End: 06-12-2020 Office outpatient visit 25 minutes Alissa Jimenes [facility] Start: 06-12-2020 Review Alissa Jimenes [facility] Start: 01-23-2018 End: 01-23-2018 Office outpatient visit 15 minutes Alissa Jimenes [facility] Start: 10-09-2017 End: 10-09-2017 Office outpatient visit 15 minutes Alissa Jimenes [facility] Start: 11-03-2015 End: 11-03-2015 Office outpatient visit 15 minutes Alissa Jimenes [facility] Start: 08-23-2014 End: 08-23-2014 Annotation/Addendum Alissa Jimenes [facility] Start: 05-09-2014 End: 05-09-2014 Office outpatient visit 15 minutes Alissa Jimenes [facility] Start: 06-30-2013 End: 06-30-2013 Patient encounter procedure Alissa Jimenes [facility] Start: 11-24-2012 End: 11-24-2012 Patient encounter procedure Alissa Jimenes [facility] Start: 07-20-2008 End: 07-20-2008 Patient encounter procedure Alissa Jimenes [facility] Start: 03-03-2008 End: 03-03-2008 Office outpatient visit 40 minutes Alissa Jimenes [facility] Start: 10-09-2007 End: 10-09-2007 Patient encounter procedure Alissa Jimenes [facility] Start: 04-16-2007 End: 04-16-2007 Office outpatient visit 10 minutes Alissaleandra Tomason [facility] Start: 03-25-2007 End: 03-25-2007 Patient encounter procedure Alissa Jimenes [facility] Start: 03-18-2007 End: 03-18-2007 Office outpatient visit 25 minutes Alissa Jimenes [facility] Start: 03-16-2007 End: 03-16-2007 Patient encounter procedure Alissa Jimenes [facility] Start: 03-02-2007 End: 03-02-2007 Patient encounter procedure Alissa Jimenes [facility] Start: 02-05-2007 End: 02-05-2007 Patient encounter procedure Alissaleandra Jimenes [facility] Start: 09-15-2006 End: 09-15-2006 Office outpatient visit 25 minutes Alissa Jimenes [facility] Start: 08-29-2006 End: 08-29-2006 Patient encounter procedure Alissa Jimenes [facility] Start: 06-17-2006 End: 06-17-2006 Historical Summary Alissa Jimenes [facility] Procedures Date Procedure Procedure Detail Performing Clinician Start: 10-11-2021 End: 10-11-2021 SCRN MAMM (CAD)W/REYMUNDO BILAT Procedure Note: See Note; NOTES: [facility] Imaging Services [address] [place] [id number] SCRN MAMM (CAD)W/REYMUNDO BILAT MR#: [id number] Acct: [id number] Name: DALILA KING Rep #: [id number] : 1950 F 71 From: Kendrick mock MD PCP: Dr. Alissa Jimenes, Status: REG CLI Study: SCRN MAMM (CAD)W/REYMUNDO BILAT Date of Exam: 10/02 Exam# [id number] Ordering Dr: Yaima Womack MAMMOGRAPHY - BILATERAL SCREENING REASON FOR EXAM: Female, 71 years old. Routine annual screening examination. PERTINENT HISTORY: Grandmother with breast cancer. TECHNIQUE: Digital bilateral breast reymundo (3D mammographic acquisition) in the CC and MLO projections. 2-D mediolateral oblique (MLO) and craniocaudad (CC) views of both breasts were obtained. CAD: Full Field Digital Mammography with Computer Added Detection was performed. COMPARISON: Comparison is made with prior study dated 09/19/2020 and 09/15/2019. FINDINGS: Breast Composition: The breasts are heterogeneously dense, which may obscure small masses. There are no dominant masses or suspicious calcifications. No other significant abnormalities are identified. There has been no significant change since the prior study. BI/SCRN MAMM (CAD)W/REYMUNDO BILAT IMPRESSION: Stable bilateral screening mammogram. Yearly follow-up mammogram recommended. (A) ASSESSMENT CATEGORY: BIRADS Category 1: Negative. A letter regarding these results will be sent to the patient by the facility within 30 days. Approximately 10% of breast cancers are not detected by mammography. A normal mammogram should not delay biopsy of a clinically suspicious abnormality. [id number] Electronically Signed: Kendrick Kurzt MD at 11:09 EST , CC: Dr. Alissa Jimenes DO; Dr. Yaima Womack MD Design Technician: Signed Alissa Jimenes DO Work Phone: Start: 10-11-2021 End: 10-11-2021 Bilingual Research Interviewer Office Visit Report Procedure Note: See Note; NOTES: [facility] [place] [address] [place] [address] OFFICE VISIT Date of Service: 10/11/21 MR#: [id number] Acct: [id number] Name: DALILA KING Rep #: [id number] : 1950 Provider: Dr. 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) Chief Complaint: est annual Scrap Baller Required: No Is patient in pain?: No Allergies No Known Allergies Allergy (Verified 04/09/21 10:19) Medications cetirizine 10 mg tablet 5 mg PO DAILY PRN 09/08/18 [History Confirmed 10/11/21] folic acid 1 mg tablet 1 mg PO DAILY 09/08/18 [History Confirmed 10/11/21] hydroxychloroquine 200 mg tablet 200 mg PO DAILY tab 09/08/18 [History Confirmed 10/11/21] methotrexate sodium 2.5 mg tablet 2.5 mg PO DAILY 09/08/18 [History Confirmed 10/11/21] multivitamin,yc-oves-cqzozph s 1 tab PO DAILY 09/08/18 [History Confirmed 10/11/21] Is last menstrual period known: No Post menopausal: Yes Patient : No : No PFSH Medical History (Updated 10/11/21 @ 09:[address] 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 Date Name GA/Weeks Outcome Route Bth Weight Gen Labor Lgth Anesthesia Del Locatn Provider FOB Unknown 1978 Lela live - full term Unknown 1979 Edi live - full term HPI Encounter for routine gynecological examination: Details: DALILA KING is a 71 year old who presents for annual exam. discussed intermittent mastalgia- supportive measurements discussed. Last PAP: hyst History of abnormal PAP: no Last mammogram: 09/21 nl History of abnormal mammogram: no Colon cancer screening: up to date within 2 years Other preventative health care screenings: pcp jalil Details: DALILA KING is a 71 year old who presents for annual exam. Last PAP: [] History of abnormal PAP: [] Last mammogram: [] History of abnormal mammogram: [] Colon cancer screening: [] Other preventative health care screenings: [] ROS Const Constitutional: Reports as per HPI; Denies fatigue, increased appetite, poor appetite, weight gain or weight loss Cardio Card: Denies chest pain Resp Resp: Denies cough or dyspnea GI GI: Reports as per HPI; Denies abdominal pain, bloating, constipation, nausea or vomiting : Reports as per HPI and other; Denies difficulty voiding, dysuria, hematuria, nipple discharge, pelvic pain, prolapse symptoms, urinary frequency, urinary incontinence, urinary urgency, vaginal discharge, vaginal dryness, vaginal odor or vaginal pruritus Skin Skin/Breast: Denies changing lesions, breast mass, breast pain, breast skin changes or nipple discharge Psych Psych: Denies anxiety or depression Exam Const General: cooperative, healthy appearing, comfortable, no acute distress, well developed and well groomed [facility] Head: normal to inspection and normocephalic Ears: hearing grossly normal bilaterally and external ears normal Nose: external nose normal Face and sinus: normal facial exam Neck Neck: normal visual inspection, full ROM and no lymphadenopathy Thyroid: thyroid normal Chest Chest palpation inspection: normal inspection of the chest Breast inspection: normal inspection of the breasts and normal inspection of the axillae Breast palpation: normal palpation of the breasts, normal palpation of the axillae and no axillary lymphadenopathy Resp Effort Inspection: normal respiratory effort GI Inspection: normal to inspection and non-distended Palpation: soft, no hepatosplenomegaly and no guarding General: bladder normal to palpation External Female Exam: normal external appearance, normal appearance of the urethra and no lesions Urethra: normal appearance of the urethra and normal palpation Speculum Exam - Vagina: normal appearance of the vagina and normal vaginal discharge Bimanual Exam- Vagina Uterus: bladder normal to palpation Bimanual Exam- Adnexa, other: normal adnexae, no masses and non-tender Skin General: no rashes or lesions noted Neuro General: patient alert, moves all extremities and no focal motor deficits Extrem General: normal to inspection and no pedal edema Psych Appearance: grossly normal Mental Status: mental status grossly normal Affect: normal affect Speech and Movement: speech and movement normal Attitude: cooperative Coding Level of Care Code Pelvic/Breast Diagnoses Encounter for routine gynecological examination Z01.411 Gynecological examination findings: abnormal findings PRESENT Vaginal dryness N89.8 Assessment and Plan Assessment and Plan (1) Encounter for routine gynecological examination: Qualifiers: Gynecological examination findings: abnormal findings PRESENT Qualified Code(s): Z01.411 - Encounter for gynecological examination (general) (routine) with abnormal findings Plan - Dr. Yaima Womack MD: Cervical cancer screening: hyst Breast cancer screening: mamm other health maintenance examination reviewed and orders placed if needed. Encouraged maintenance of a healthy weight and active lifestyle and handout given. Annual exam handout including recommendations for good health guidelines, Calcium/vitamin D recommendations, and basic screening information given. Problem list up to date, see problem list details for any additional plan information. Follow up in one year for annual health maintenance exam or sooner if needed. (2) Vaginal dryness: Status: Acute Comment: premarin Plan Details Other Orders: Orders: SCRN MAMM (CAD)W/REYMUNDO FONSECA Today 10/11/21 0902 <Electronically signed by Yaima Womack MD> Date Yaima Womack MD Cosigner Signature: Date (if applicable) CC: Alissa Jimenes DO Work Phone: Start: 04-09-2021 End: 04-09-2021 Skull min 4 Views Procedure Note: See Note; NOTES: [facility] [address] [address] Skull min 4 Views MR#: [id number] Acct: [id number] Name: DALILA KING Rep #: [id number] : 1950 F 70 From: Kendrick mock MD PCP: Dr. Alissa Jimenes DO Status: DEP AMB Study: Skull min 4 Views Date of Exam: 04/09/21 Exam# [id number] Ordering Dr: Carlos Kelly STUDY: X-RAY - SKULL REASON FOR EXAM: Female, 70 years old. S/p fall TECHNIQUE: 6 view(s) of the skull were obtained. COMPARISON: None. FINDINGS: There is no demonstrated soft tissue swelling. Normal osseous calvarium. Normal visualized facial bones. Normal visualized paranasal sinuses. RAD/Skull min 4 Views IMPRESSION: Normal x-ray examination of the skull. Electronically Signed: Kendrick Kurtz MD at 11:11 EDT , Service support , CC: GABI Kelly; Dr. Alissa Jimenes DO Design Technician: Signed Alissa Jimenes DO Work Phone: Start: 04-09-2021 End: 04-09-2021 Urgent Care Visit Report Procedure Note: See Note; NOTES: [facility] [address] [place] [address] [address] [place] [address] OFFICE VISIT Date of Service: 04/09/21 MR#: [id number] Acct: [id number] Name: DALILA KING Rep #: [id number] : 1950 Provider: GABI landa Age/Sex: 70/F [place] [facility] [place] Status: Signed Intake Vital Signs 04/09/21 10:18 04/09/21 10:20 Height 5 ft 2.5 in Weight: 140 lb BMI 25.2 25.2 BP 110/62 Blood Pressure Location Lt brachial Position Sitting Respiration 16 Pulse 68 Pulse Source Monitor Temp 97.3 F L Temp Source Temporal Pulse Oximetry (%) 98 Oxygen Delivery Method room air Intake Visit Reasons: RT EYE INJURY Chief Complaint: est annual Allergies No Known Allergies Allergy (Verified 04/09/21 10:19) Medications cetirizine 10 mg tablet 5 mg PO DAILY PRN 09/08/18 [History Confirmed 04/09/21] folic acid 1 mg tablet 1 mg PO DAILY 09/08/18 [History Confirmed 04/09/21] hydroxychloroquine 200 mg tablet 200 mg PO DAILY tab 09/08/18 [History Confirmed 04/09/21] methotrexate sodium 2.5 mg tablet 2.5 mg PO DAILY 09/08/18 [History Confirmed 04/09/21] multivitamin,ke-bolc-ixrvgjf s 1 tab PO DAILY 09/08/18 [History Confirmed 04/09/21] PFSH Medical History (Updated 04/09/21 @ 10:52 by GABI Morris) Closed head injury Facial contusion Fibromyalgia Osteopenia Rheumatoid arthritis Seasonal allergies Surgical History bladder sling S/P NAA (total abdominal hysterectomy) Family History Mother Cancer ovarian- granulosa cell Father Myocardial infarction Brother Diabetes Grandmother Breast cancer Social History Smoking Status: Never smoker alcohol intake: never substance use type: does not use caffeine: Yes what type of physical activity do you participate in: walking seatbelt use: always do you feel safe at home: Yes additional social history: Thomas - 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 Patient states on date of injury, tripping falling forward hitting anterior aspect of right forehead/eye with immediate ecchymosis and swelling circumferential to the right eye. She noted no LOC or nausea or vomiting on date of injury or since, though does admit having mild frontal/forehead headache with slight, fogginess all of which is tolerable and improving she so states. She noted no vision changes on date of injury or since. She noted no drainage from ears or nose on date of injury or since. He does note having mild aching discomfort to bilateral shoulders though no cervical discomfort no radicular complaints upon questioning. She states otherwise feeling fine, stating she would need to be evaluated today had her and friend both told her she should be medically evaluated due to the bruising around her right eye. ROS Const Constitutional: No other (As above) Exam Const General: cooperative, healthy appearing, comfortable and no acute distress Nutritional Appearance: average body habitus and well nourished Orientation: alert, awake and oriented x3 HENMT Head: normal to inspection Ears: hearing grossly normal bilaterally, external ears normal, TM's normal bilaterally and EAC's normal Nose: external nose normal, nares normal, septum normal and no nasal discharge Face and sinus: normal facial exam, sinuses nontender and face symmetric Mouth: oral mucosae normal, lip normal, tongue normal and oropharynx normal Teeth and gingiva: dentition normal (Nontender to touch by patient) and gingiva normal Throat: posterior oropharynx normal and no postnasal drainage Eyes Visual Velazco: normal visual velazco by confrontation Alignment and Position: alignment normal and position normal Eyelids: eyelid abnormality right upper eyelid (Ecchymosis) and right lower eyelid (Ecchymosis) Conjunctivae: conjunctivae normal Pupils: PERRL EOM: EOM intact bilaterally Direct ophthalmoscopy: normal light reflex, no photophobia and anterior chamber normal Neck Neck: normal visual inspection, full ROM, no meningeal signs and supple Chest Chest palpation inspection: normal inspection of the chest Resp Effort Inspection: normal respiratory effort, able to speak in complete sentences and symmetric chest movement Cardio Rate: regular rate Pulses: radial pulses present Skin General: no rashes or lesions noted Neuro General: patient alert, patient awake, patient oriented x3 and gait normal Cognition: normal cognition Speech: speech normal Gait: normal gait Motor: muscle tone normal throughout Sensory Exam: no sensory deficits noted Coordination: buqltu-[id number]-iwfj test normal, vihs-zb-udnw test normal, Romberg test normal, tandem gait normal and Does not sway with eyes open Extrem General: normal to inspection Psych Appearance: grossly normal Mental Status: mental status grossly normal Mood: congruent mood Affect: normal affect Speech and Movement: speech and movement normal Attitude: cooperative Thought Process: normal Thought Content: normal Judgment: judgment good Coding Level of Care Code Off vis,new,level 4 Diagnoses Closed head injury S09.90XA Facial contusion S00.83XA Assessment and Plan Assessment and Plan (1) Closed head injury: Status: Acute (2) Facial contusion: Status: Acute Plan - Carlos ASHLEY PA: - right circumocular contusion Skull radiographs reveal no acute osseous pathology per my review, pending radiologist interpretation at time of patient discharge. Supportive measures including Tylenol, cool compresses to right circumocular region. Follow-up with PCP in 5 to 7 days for reassessment and continuation of care, ED sooner should symptoms worsen or any other concerns develop. Patient states acknowledging understanding all the above. This note was generated with [employer] dictation software. It may contain incorrect words, spelling, and punctuation that were not noted in checking the note before signing. Plan Details Other Orders: Orders: Skull min 4 Views Today W19.XXXA 04/09/21 1129 <Electronically signed by Carlos ASHLEY> Date Carlos ASHLEY Cosigner Signature: Date (if applicable) CC: Alissa Jalil DO Work Phone: Start: 10-13-2020 End: 10-13-2020 Transvaginal Non- Procedure Note: See Note; NOTES: [facility] Imaging Services [address] [place] [address] Transvaginal Non- MR#: [id number] Acct: [id number] Name: DALILA KING Rep #: [id number] : 1950 F 70 From: Prashant Escobar MD PCP: Dr. Alissa Jimenes DO Status: REG CLI Study: Transvaginal Non- Date of Exam: Exam# [id number] Ordering Dr: Yaima Womack STUDY: ULTRASOUND TRANSVAGINAL CLINICAL: Female, 70 years old. FULLNESS OF PELVIS, CURRENT UTI -- HX OF HYSTERECTOMY 1992 TECHNIQUE: Transvaginal COMPARISON: None. FINDINGS: There has been a previous hysterectomy Right ovary not visualized Normal left ovary, measuring 3.1 x 2.5 x 1.1 cm. There are multiple follicles without a dominant cyst. There is no free fluid in the pelvis. US/Transvaginal Non- IMPRESSION: No suspicious sonographic findings, previous uterine removal. Sonographically normal left ovary, right ovary not visualized Electronically Signed: Spencer Escobar MD at 17:12 EST , Service support , CC: Dr. Alissa Jimenes DO; Dr. Yaima Womack MD Design Technician: Signed Alissa Jimenes DO Work Phone: Start: 10-10-2020 End: 10-10-2020 Bilingual Research Interviewer Office Visit Report Procedure Note: See Note; NOTES: [facility] [address] [place] [address] OFFICE VISIT Date of Service: 10/10/20 MR#: [id number] Acct: [id number] Name: DALILA KING Rep #: [id number] : 1950 Provider: Dr. 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), r/s from 09/19 as prov in surg Chief Complaint: est annual Scrap Baller Required: No Is patient in pain?: Yes Allergies No Known Allergies Allergy (Verified 10/10/20 09:42) Medications cetirizine 10 mg tablet 5 mg PO DAILY PRN 09/08/18 [History Confirmed 10/10/20] folic acid 1 mg tablet 1 mg PO DAILY 09/08/18 [History Confirmed 10/10/20] hydroxychloroquine 200 mg tablet 200 mg PO DAILY tab 09/08/18 [History Confirmed 10/10/20] methotrexate sodium 2.5 mg tablet 2.5 mg PO DAILY 09/08/18 [History Confirmed 10/10/20] multivitamin,ez-xafy-ovtorml s 1 tab PO DAILY 09/08/18 [History Confirmed 10/10/20] conjugated estrogens 0.625 mg/gram vaginal cream 1 applic VAGINAL .twice weekly #30 g 07/06/20 [Rx Confirmed 10/10/20] Is last menstrual period known: No Post menopausal: Yes Patient : No : No PFSH Medical History Fibromyalgia (Acute) Osteopenia (Acute) Rheumatoid arthritis (Acute) Surgical History S/P NAA (total abdominal hysterectomy) (Acute) bladder sling (Acute) Family History (Updated 10/10/20 @ 10:[address] Yaima Womack MD) Mother Cancer ovarian- granulosa cell Father Myocardial infarction Brother Diabetes Grandmother Breast cancer Social History (Updated 10/10/20 @ 10:[address] 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 Last PAP: hyst History of abnormal PAP: Last mammogram: 09/21 History of abnormal mammogram: nl Colon cancer screening: up to date Other preventative health care screenings: pcp jalil Female Reproductive History Questions: Sexually active: Yes, Dyspareunia: No, PCB: No ROS Const Constitutional: Reports as per HPI; denies fatigue, increased appetite, poor appetite, weight gain or weight loss Cardio Card: Denies chest pain Resp Resp: Denies cough or dyspnea GI GI: Reports as per HPI, abdominal pain, bloating and feeling full early; denies constipation, nausea or vomiting : Reports as per HPI and other; denies difficulty urinating, painful urination, blood in urine, nipple discharge, pelvic pain, prolapse symptoms, urinary frequency, urinary incontinence, urinary urgency, vaginal discharge, vaginal dryness, vaginal odor or vaginal itching Skin Skin/Breast: Denies changing lesions, breast lump, breast pain, breast skin changes or nipple discharge Psych Psych: Denies anxiety or depression Exam Const General: cooperative, healthy appearing, comfortable, no acute distress, well developed, well groomed HENCT Head: normal to inspection, normocephalic Ears: hearing grossly normal bilaterally, external ears normal Nose: external nose normal Face and sinus: normal facial exam Neck Neck: normal visual inspection, full ROM, no lymphadenopathy Thyroid: thyroid normal Chest Chest palpation inspection: normal inspection of the chest Breast inspection: normal inspection of the breasts, normal inspection of the axillae Breast palpation: normal palpation of the breasts, normal palpation of the axillae, no axillary lymphadenopathy Resp Effort Inspection: normal respiratory effort GI Inspection: normal to inspection, non-distended Palpation: soft, no hepatosplenomegaly, no guarding General: bladder normal to palpation External Female Exam: normal external appearance, normal appearance of the urethra, no lesions Urethra: normal appearance of the urethra, normal palpation Speculum Exam - Vagina: normal appearance of the vagina, normal vaginal discharge Bimanual Exam- Vagina Uterus: bladder normal to palpation Bimanual Exam- Adnexa, other: normal adnexae, no adnexal masses, adnexae non-tender Skin General: no rashes or lesions noted Neuro General: alert, moves all extremities, no focal motor deficits Extrem General: normal to inspection, no pedal edema Psych Appearance: grossly normal Mental Status: mental status grossly normal Affect: normal affect Speech and Movement: speech and movement normal Attitude: cooperative Results POC Urinalysis Dip (Clinic) Office Urine Color YELLOW Last Edit by Kristy Caldera on 10/10/20 09:56 Office Urine Clarity Clear Last Edit by Kristy Caldera on 10/10/20 09:56 Office Urine Glucose Negative Last Edit by Kristy Caldera on 10/10/20 09:56 Office Urine Ketones Negative Last Edit by Kristy Caldera on 10/10/20 09:56 Off Ur Spec [place] Last Edit by Kristy Caldera on 10/10/20 09:56 Office Urine pH Last Edit by Kristy Caldera on 10/10/20 09:56 Office Urine Bilirubin Last Edit by Kristy Caldera on 10/10/20 09:56 Office Urine Urobilinogen Last Edit by Kristy Caldera on 10/10/20 09:56 Office Urine Blood Trace Last Edit by Kristy Caldera on 10/10/20 09:56 Office Urine Blood Hemolyzed Last Edit by Kristy Caldera on 10/10/20 09:56 Office Urine Protein Last Edit by Kristy Caldera on 10/10/20 09:56 Office Urine Nitrate Negative Last Edit by Kristy Caldera on 10/10/20 09:56 Off Ur Leukocytes Positive Last Edit by Kristy Caldera on 10/10/20 09:56 Assessment Plan Problems 1. Pelvic fullness in female R19.00 us ordered 2. Encounter for gynecological examination (general) (routine) with abnormal findings Z01.411 Plan Cervical cancer screening: hyst Breast cancer screening: mamm up to date other health maintenance examination reviewed and orders placed if needed. Encouraged maintenance of a healthy weight and active lifestyle and handout given. Annual exam handout including recommendations for good health guidelines, Calcium/vitamin D recommendations, and basic screening information given. Problem list up to date, see problem list details for any additional plan information. Follow up in one year for annual health maintenance exam or sooner if needed. Orders Orders: POC Urinalysis Dip (Clinic) Today R10.2 Culture, Urine Today R10.2 Coding Level of Care Code MC Pelvic/Breast Diagnoses Pelvic fullness in female R19.00 Encounter for gynecological examination (general) (routine) with abnormal findings Z01.411 10/10/20 1032 <Electronically signed by Yaima Womack MD> Date Yaima Womack MD Cosigner Signature: Date (if applicable) CC: Alissa Jimenes DO Work Phone: Start: 09-19-2020 End: 09-19-2020 SCRN MAMM (CAD)W/REYMUNDO BILAT Procedure Note: See Note; NOTES: [facility] Imaging Services [address] [place] [address] SCRN MAMM (CAD)W/REYMUNDO BILAT MR#: [id number] Acct: [id number] Name: DALILA KING Rep #: [id number] : 1950 F 70 From: Kendrick mock MD PCP: Dr. Alissa Jimenes, DO Status: [facility] Study: SCRN MAMM (CAD)W/REYMUNDO BILAT Date of Exam: 09/01 05/22 Exam# [id number] Ordering Dr: Yaima Womack MAMMOGRAPHY - BILATERAL SCREENING REASON FOR EXAM: Female, 70 years old. Routine annual screening examination. PERTINENT HISTORY: Grandmother with breast cancer. TECHNIQUE: Digital bilateral breast reymundo (3D mammographic acquisition) in the CC and MLO projections. 2-D mediolateral oblique (MLO) and craniocaudad (CC) views of both breasts were obtained. CAD: Full Field Digital Mammography with Computer Added Detection was performed. COMPARISON: Comparison is made with prior study dated 09/15/2019 and 09/08/2018. FINDINGS: Breast Composition: The breasts are heterogeneously dense, which may obscure small masses. There are no dominant masses or suspicious calcifications. No other significant abnormalities are identified. There has been no significant change since the prior study. BI/SCRN MAMM (CAD)W/REYMUNDO BILAT IMPRESSION: Stable bilateral screening mammogram. Yearly follow-up mammogram recommended. (A) ASSESSMENT CATEGORY: BIRADS Category 1: Negative. A letter regarding these results will be sent to the patient by the facility within 30 days. Approximately 10% of breast cancers are not detected by mammography. A normal mammogram should not delay biopsy of a clinically suspicious abnormality. [id number] Electronically Signed: Kendrick Kurtz MD at 10:56 EST , Service support , CC: Dr. Alissa Jimenes DO; Dr. Yaima Womack MD Design Technician: Signed Alissa Jimenes DO Work Phone: Start: 09-23-2019 End: 09-23-2019 Dexa Bone Density Study Comments: See Note; NOTES: [facility] Imaging Services [address] [place], [place] [address] [address] Dexa Bone Density Study MR#: [id number] Acct: [id number] Name: DALILA KING Rep #: [id number] : 1950 F 69 From: Kendrick Kurtz MD PCP: Alissa Jimenes DO Status: REG CLI Study: Dexa Bone Density Study Date of Exam: 09/23/19 Exam# [id number] Ordering Dr: Yaima Womack MD STUDY: DUAL ENERGY X-RAY ABSORPTIOMETRY / DXA REASON FOR EXAM: Female, 69 years old. Unsure of jonathan- age. Patient is 139.6 # and 62.5'' a loss of .5-1 and quot;. Takes a multi-vit and does a little exercising. TECHNIQUE: Bone Mineral Density (BMD) measurements of lumbar spine and bilateral hips were obtained. COMPARISON: None. FINDINGS: Lumbar Spine (L1-L4): g/cm2 (1.099) / T-score (-0.7) / Z-score (1.0) Findings are suggestive of normal bone density with a low fracture risk. Left Femur Total: g/cm2 (0.901) / T-score (-0.8) / Z-score (0.5) Left Femoral Neck: g/cm2 (0.804) / T-score (-1.7) / Z-score (-0.1) Right Femur Total: g/cm2 (0.927) / T-score (-0.6) / Z-score (0.7) Right Femoral Neck: g/cm2 (0.841) / T-score (-1.4) / Z-score (0.2) BD/Dexa Bone Density Study IMPRESSION: The patient is considered osteopenic as outlined below according to World Naveed Organization (WHO) criteria with a moderate fracture risk. Reference Information: The T-score is the number of standard deviations above or below the standard which is normal for young adults at their peak bone mineral density. The World Health Organization (WHO) interprets the T-scores as follows: Above -1 Normal bone density Between -1 and -2.5 Osteopenia Equal to / or below -2.5 Osteoporosis As a practical clinical guideline, osteopenia may be graded as follows: Mild -1 through -1.5 Moderate -1.6 through -2.0 Severe -2.1 through -2.4 The Z-score is the number of standard deviations above or below age-matched controls. A Z-score of less than -1.5 would be considered abnormal. References: 1. NIH Osteoporosis and Related Bone Diseases http://www.osteo.org 2. International Society for Clinical Densitometry http://www.iscd.org 3. National Osteoporosis Foundation http://www.nof.org Electronically Signed: Kendrick Kurtz, at 14:25 EST , Service support , CC: Alissa Jimenes DO; Yaima Womack MD Design Technician: Signed Alissa Jimenes Start: 09-15-2019 End: 09-15-2019 SCREEN MAMM (CAD) W/REYMUNDO BILAT Comments: See Note; NOTES: [facility] Imaging Services [address] [place] [address] SCREEN MAMM (CAD) W/REYMUNDO BILAT MR#: [id number] Acct: [id number] Name: DALILA KING Rep #: [id number] : 1950 F 69 From: Kendrick Kurtz MD PCP: Alissa Jimenes DO Status: [facility] Study: SCREEN MAMM (CAD) W/REYMUNDO BILAT Date of Exam: 09/15/19 Exam# [id number] Ordering Dr: Yaima Womack MD MAMMOGRAPHY - BILATERAL SCREENING REASON FOR EXAM: Female, 69 years old. Routine annual screening examination. PERTINENT HISTORY: Grandmother with breast cancer. TECHNIQUE: Digital bilateral breast reymundo (3D mammographic acquisition) in the CC and MLO projections. 2-D mediolateral oblique (MLO) and craniocaudad (CC) views of both breasts were obtained. CAD: Full Field Digital Mammography with Computer Added Detection was performed. COMPARISON: Comparison is made with prior study dated September 08, 2018 and August 15, 2017. FINDINGS: Breast Composition: The breasts are heterogeneously dense, which may obscure small masses. There are no dominant masses or suspicious calcifications. No other significant abnormalities are identified. There has been no significant change since the prior study. BI/SCREEN MAMM (CAD) W/REYMUNDO BILAT IMPRESSION: Stable bilateral screening mammogram. Yearly follow-up mammogram recommended. (A) ASSESSMENT CATEGORY: BIRADS Category 1: Negative. A letter regarding these results will be sent to the patient by the facility within 30 days. Approximately 10% of breast cancers are not detected by mammography. A normal mammogram should not delay biopsy of a clinically suspicious abnormality. [id number] Electronically Signed: Kendrick Tessie, at 11:03 EST , Service support , CC: Alissa Jimenes DO; Yaima Womack MD Design Technician: Signed Alissa Jimenes Start: 09-15-2019 End: 09-15-2019 Bilingual Research Interviewer Office Visit Report Comments: See Note; NOTES: [facility] [address] [place], [place] [address]brian. 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) Chief Complaint: est annual Scrap Baller Required: No Is patient in pain?: No Allergies No Known Allergies Allergy (Unverified 09/15/19 09:07) Medications cetirizine 10 mg tablet 5 mg PO DAILY PRN 09/08/18 [History Confirmed 09/15/19] folic acid 1 mg tablet 1 mg PO DAILY 09/08/18 [History Confirmed 09/15/19] hydroxychloroquine 200 mg tablet 200 mg PO DAILY tab 09/08/18 [History Confirmed 09/15/19] methotrexate sodium 2.5 mg tablet 2.5 mg PO DAILY 09/08/18 [History Confirmed 09/15/19] multivitamin,th-iqgh-bykaqxb s 1 tab PO DAILY 09/08/18 [History Confirmed 09/15/19] conjugated estrogens 0.625 mg/gram vaginal cream 1 applic VAGINAL .twice weekly #30 g 09/15/19 [Rx Confirmed 09/15/19] Is last menstrual period known: No Post menopausal: Yes Patient : No : No PFSH Medical History Fibromyalgia (Acute) Osteopenia (Acute) Rheumatoid arthritis (Acute) Surgical History S/P NAA (total abdominal hysterectomy) (Acute) bladder sling (Acute) Family History Mother Cancer ovarian Father Myocardial infarction Brother Diabetes Grandmother Breast cancer Social History (Updated 09/15/19 @ 09:27 by Yaima Womack MD) Smoking Status: Never smoker alcohol intake: never substance use type: does not use caffeine: Yes what type of physical activity do you participate in: walking seatbelt use: always do you feel safe at home: Yes additional social history: 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 DatName GA/WeeksOutcome [facility] LocaProviderFOB e ht en ia tn HPI Encounter for routine gynecological examination: Details: DALILA KING is a 69 year old who presents for annual exam. 16 and 10 year old live with them ([facility]) Last PAP: hyst History of abnormal PAP: no Last mammogram: today History of abnormal mammogram: no Colon cancer screening: handout given Other preventative health care screenings: pCP- dr jimenes Female Reproductive History Questions: Metorrhagia: No, Sexually active: Yes, Dyspareunia: No, PCB: No ROS Const Constitutional: Reports as per HPI; denies fatigue, increased appetite, poor appetite, weight gain or weight loss Cardio Card: Denies chest pain Resp Resp: Denies cough or dyspnea GI GI: Reports as per HPI; denies abdominal pain, bloating, constipation, nausea or vomiting : Reports as per HPI and other; denies difficulty urinating, painful urination, blood in urine, nipple discharge, pelvic pain, prolapse symptoms, urinary frequency, urinary incontinence, urinary urgency, vaginal discharge, vaginal dryness, vaginal odor or vaginal itching Skin Skin/Breast: Denies changing lesions, breast lump, breast pain, breast skin changes or nipple discharge Psych Psych: Denies anxiety or depression Exam Const General: cooperative, healthy appearing, comfortable, no acute distress, well developed, well groomed [facility] Head: normal to inspection, normocephalic Ears: hearing grossly normal bilaterally, external ears normal Nose: external nose normal Face and sinus: normal facial exam Neck Neck: normal visual inspection, full ROM, no lymphadenopathy Thyroid: thyroid normal Chest Chest palpation AND inspection: normal inspection of the chest Breast inspection: normal inspection of the breasts, normal inspection of the axillae Breast palpation: normal palpation of the breasts, normal palpation of the axillae, no axillary lymphadenopathy Resp Effort AND Inspection: normal respiratory effort GI Inspection: normal to inspection, non-distended Palpation: soft, no hepatosplenomegaly, no guarding General: bladder normal to palpation External Female Exam: normal external appearance, normal appearance of the urethra, no lesions Urethra: normal appearance of the urethra, normal palpation Speculum Exam - Vagina: normal appearance of the vagina, normal vaginal discharge Bimanual Exam- Vagina AND Uterus: bladder normal to palpation Bimanual Exam- Adnexa, other: normal adnexae, no adnexal masses, adnexae non-tender Skin General: no rashes or lesions noted Neuro General: alert, moves all extremities, no focal motor deficits Extrem General: normal to inspection, no pedal edema Psych Appearance: grossly normal Mental Status: mental status grossly normal Affect: normal affect Speech and Movement: speech and movement normal Attitude: cooperative Assessment AND Plan 1. Encounter for gynecological examination without abnormal finding Z01.419 Plan Cervical cancer screening: hyst Breast cancer screening: mamm other health maintenance examination reviewed and orders placed if needed. Encouraged maintenance of a healthy weight and active lifestyle and handout given. Annual exam handout including recommendations for good health guidelines, Calcium/vitamin D recommendations, and basic screening information given. Problem list up to date, see problem list details for any additional plan information. Follow up in one year for annual health maintenance exam or sooner if needed. Plan Detail Other Orders Orders: Other Medications Refilled: Coding Level of Care Code Pelvic/Breast Diagnoses Encounter for gynecological examination without abnormal finding Z01.419 Gynecological examination findings: abnormal findings ABSENT 09/15/19 0927 <Electronically signed by Yaima Womack MD> Date Yaima Womack MD Cosigner Signature: Date (if applicable) CC: Alissa Jimenes Start: 09-10-2018 End: 09-10-2018 Bilingual Research Interviewer Office Visit Report Comments: See Note; NOTES: [facility] [address] [place] [address]. 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 exam Chief Complaint: est annual Scrap Baller Required: No Is patient in pain?: No Allergies No Known Allergies Allergy (Unverified 09/08/18 11:08) Medications cetirizine 10 mg tablet 5 mg PO DAILY PRN 09/08/18 [History Confirmed 09/08/18] folic acid 1 mg tablet 1 mg PO DAILY 09/08/18 [History Confirmed 09/08/18] hydroxychloroquine 200 mg tablet 200 mg PO DAILY tab 09/08/18 [History Confirmed 09/08/18] methotrexate sodium 2.5 mg tablet 2.5 mg PO DAILY 09/08/18 [History Confirmed 09/08/18] multivitamin,nu-wmwe-wbvwfvr s tablet 1 tab PO DAILY 09/08/18 [History Confirmed 09/08/18] conjugated estrogens 0.625 mg/gram vaginal cream 1 applic VAGINAL .twice weekly #30 g 09/10/18 [Rx] Is last menstrual period known: No Post menopausal: Yes Patient : No : No PFSH Medical History Fibromyalgia (Acute) Osteopenia (Acute) Rheumatoid arthritis (Acute) Surgical History S/P NAA (total abdominal hysterectomy) (Acute) bladder sling (Acute) Family History Mother Cancer ovarian Father Myocardial infarction Brother Diabetes Grandmother Breast cancer Social History Smoking Status: Never smoker alcohol intake: never substance use type: does not use caffeine: Yes what type of physical activity do you participate in: walking seatbelt use: always do you feel safe at home: Yes additional social history: 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 DateName GA/Weeks Outcome Route Bth WeighInfant GeLabor LgtAnesthesiDel LocatProvider FOB t n h a n HPI VISION MIXER annual exam: Details: DALILA KING is a 68 year old who presents for annual exam. doing well n ocomplaints. will continue vaginal estrogen Last PAP: na History of abnormal PAP: no Last mammogram: annually History of abnormal mammogram: no Colon cancer screening: up to date Other preventative health care screenings: per pcp Female Reproductive History Questions: Sexually active: Yes, Dyspareunia: No (estrogen vaginally) Menopausal Symptoms: No hot flashes, No night sweats, No weight change, No mood changes, No difficulty concentrating, No sleep problems, No change in libido Menopausal Treatment: Yes Vaginal Estrogen ROS Const Constitutional: Denies night sweats Cardio Card: Denies chest pain Resp Resp: Denies dyspnea or cough GI GI: Reports as per HPI; denies bloating, abdominal pain, constipation, vomiting or nausea : Denies hot flashes Skin Skin/Breast: Reports breast pain (right lateral intermittent) Psych Psych: Denies difficulty concentrating or change in sex drive Exam Const General: cooperative, healthy appearing, comfortable, no acute distress, well developed, well groomed HENMT Head: normal to inspection, normocephalic Ears: hearing grossly normal bilaterally, external ears normal Nose: external nose normal Face and sinus: normal facial exam Neck Neck: normal visual inspection, full ROM, no lymphadenopathy Thyroid: thyroid normal Chest Chest palpation AND inspection: normal inspection of the chest Breast inspection: normal inspection of the breasts, normal inspection of the axillae Breast palpation: normal palpation of the breasts, normal palpation of the axillae, no axillary lymphadenopathy Resp Effort AND Inspection: normal respiratory effort GI Inspection: normal to inspection, non-distended Palpation: no guarding, soft, no hepatosplenomegaly General: bladder normal to palpation External Female Exam: normal external appearance, normal appearance of the urethra, no lesions Urethra: normal appearance of the urethra, normal palpation Speculum Exam - Vagina: normal appearance of the vagina, normal vaginal discharge Speculum Exam - Cervix: normal appearance of the cervix, no cervical discharge, no lesions, nontender Bimanual Exam- Vagina AND Uterus: No cervical tenderness, normal bimanual exam, uterine size normal, bladder normal to palpation, uterine mobility normal, uterine consistency normal, uterus non-tender, no cervical motion tenderness Bimanual Exam- Adnexa, other: normal adnexae, no adnexal masses, adnexae non-tender Skin General: no rashes or lesions noted Neuro General: alert, moves all extremities, no focal motor deficits Extrem General: no pedal edema, normal to inspection Psych Appearance: grossly normal Mental Status: mental status grossly normal Affect: normal affect Speech and Movement: speech and movement normal Attitude: cooperative Assessment AND Plan Problems 1. Encounter for gynecological examination without abnormal finding Z01.419 Plan Cervical cancer screening: na Breast cancer screening: mamm up to date other health maintenance examination reviewed and orders placed if needed. Encouraged maintenance of a healthy weight and active lifestyle and handout given. Annual exam handout including recommendations for good health guidelines, Calcium/vitamin D recommendations, and basic screening information given. Problem list up to date, see problem list details for any additional plan information. Follow up in one year for annual health maintenance exam or sooner if needed. Coding Level of Care Code Off vis,est,prev 65+yrs Diagnoses Encounter for gynecological examination without abnormal finding Z01.419 Gynecological examination findings: abnormal findings ABSENT 09/10/18 0514 <Electronically signed by Yaima Womack MD> Date Yaima Womack MD Cosigner Signature: Date (if applicable) CC: Alissa Jimenes Start: 09-08-2018 End: 09-08-2018 SCREENING MAMM (CAD), BILAT Comments: See Note; NOTES: [facility] Imaging Services [address] [place] [address] SCREENING MAMM (CAD), BILAT MR#: [id number] Acct: [id number] Name: DALILA KING Rep #: [id number] : 1950 F 68 From: Kendrick Kurtz MD PCP: Alissa Jimenes DO Status: [facility] Study: SCREENING MAMM (CAD), BILAT Date of Exam: 09/08/18 Exam# [id number] Ordering Dr: Yaima Womack MD MAMMOGRAPHY - BILATERAL SCREENING REASON FOR EXAM: Female, 68 years old. Routine annual screening examination. PERTINENT HISTORY: Grandmother with breast cancer. TECHNIQUE: Digital bilateral breast reymundo (3D mammographic acquisition) in the CC and MLO projections. 2-D mediolateral oblique (MLO) and craniocaudad (CC) views of both breasts were obtained. CAD: Full Field Digital Mammography with Computer Added Detection was performed. COMPARISON: Comparison is made with prior study dated August 15, 2017. FINDINGS: Breast Composition: The breasts are heterogeneously dense, which may obscure small masses. There are no dominant masses or suspicious calcifications. No other significant abnormalities are identified. There has been no significant change since the prior study. BI/SCREENING MAMM (CAD), BILAT IMPRESSION: Stable bilateral screening mammogram. Yearly follow-up mammogram recommended. (A) ASSESSMENT CATEGORY: BIRADS Category 1: Negative. A letter regarding these results will be sent to the patient by the facility within 30 days. Approximately 10% of breast cancers are not detected by mammography. A normal mammogram should not delay biopsy of a clinically suspicious abnormality. [id number] Electronically Signed: Kendrick Kurtz MD at 12:55 EST Tel [phone], Service support , CC: Alissa Jimenes DO; Yaima Womack MD Design Technician: Signed Alissa Jimenes Start: 08-15-2017 End: 08-15-2017 SCREENING MAMM (CAD), BILAT Comments: See Note; NOTES: [facility] Imaging Services [address] [place] [address] SCREENING MAMM (CAD), BILAT MR#: [id number] Acct: [id number] Name: DALILA KING Rep #: [id number] : 1950 F 67 From: Kendrick Kurtz MD PCP: Alissa Jimenes DO Status: REG CLI Study: SCREENING MAMM (CAD), BILAT Date of Exam: 08/15/17 Exam# [id number] Ordering Dr: Yaima Womack MD MAMMOGRAPHY - BILATERAL SCREENING REASON FOR EXAM: Female, 67 years old. Routine annual screening examination. PERTINENT HISTORY: Grandmother with breast cancer. TECHNIQUE: Digital bilateral breast reymundo (3D mammographic acquisition) in the CC and MLO projections. 2-D mediolateral oblique (MLO) and craniocaudad (CC) views of both breasts were obtained. CAD: Full Field Digital Mammography with Computer Added Detection was performed. COMPARISON: Comparison is made with prior examination dated July 16, 2016. FINDINGS: Breast Composition: The breasts are heterogeneously dense, which may obscure small masses. There are no dominant masses or suspicious calcifications. No other significant abnormalities are identified. There has been no significant change since the prior study. HPBI/SCREENING MAMM (CAD), BILAT IMPRESSION: Stable bilateral screening mammogram. Yearly follow-up mammogram recommended. (A) ASSESSMENT CATEGORY: BIRADS Category 1: Negative. A letter regarding these results will be sent to the patient by the facility within 30 days. Approximately 10% of breast cancers are not detected by mammography. A normal mammogram should not delay biopsy of a clinically suspicious abnormality. [id number] Electronically Signed: Kendrick Kurtz MD at 10:55 EST Tel [phone], Service support , CC: Alissa Jimenes DO; Yaima Womack MD Design Technician: Signed Alissa Jimenes Start: 07-21-2017 End: 07-21-2017 Urnls dip stick/tablet rgnt non-auto w/o micrscp Yaima Womack MD Work Phone: Start: 06-16-2017 Screening mammography Screening mammogram for breast cancer Yaima Womack MD Start: 11-28-2015 End: 11-28-2015 Brain/Head W/WO Contrast Comments: See Note; NOTES: [facility] Imaging Services [address] [place] [address] Verdana 4d Brain/Head W/WO Contrast MR#: [id number] Acct: [id number] Name: DALILA KING Rep #: [id number] : 1950 F 65 From: Loni Houston MD PCP: Alissa Jimenes DO Status: REG CLI Study: Brain/Head W/WO Contrast Date of Exam: 11/28/15 Exam# [id number] Ordering Dr: Alissa Jimenes DO STUDY: CT BRAIN WITH AND WITHOUT CONTRAST REASON FOR EXAM: Female, 65 years old. headaches x several years in back left of head. patient has Hx fibromyalgia, arthritis, skin CA-removal, hysterectomy, bladder mesh RADIATION DOSAGE (If Supplied By Facility): CTDIvol = ( 58.44 ) mGy, DLP = ( 2001.93 ) mGycm TECHNIQUE: Transaxial CT imaging of the brain was performed pre and post contrast administration. The examination was performed with intravenous administration of 50ml ml of Isovue 370 contrast material. Individualized dose optimization techniques were used for this CT. COMPARISON: None. FINDINGS: Normal soft tissue structures. Normal calvarium. Normal size ventricles and extra-axial spaces for the patient's age. There are areas of decreased attenuation within the white matter tracts of the supratentorial brain, consistent with microvascular disease changes. Normal basal ganglia and thalami. Normal brainstem. Normal cerebellum. There is no intracranial hemorrhage. There are no findings of an acute ischemic infarction. Normal visualized paranasal sinuses. IMPRESSION: Chronic involutional changes of the brain. Electronically Signed: Loni Houstno MD at 15:47 EDT Tel , Service support [phone], CC: Alissa Jimenes DO Design Technician: Signed Alissa Jimenes Work Phone: Start: 09-07-2013 End: 09-07-2013 PT Discharge Summary Comments: See Note; NOTES: [facility] [address] [place] [address] Fax REHABILITATION SERVICES DISCHARGE SUMMARY MR#: [id number] Acct: [id number] Name: DALILA KING Rep #: [id number] : 1950 63 From: Leatha Rabago Referring Dr.: Alissa Jimenes DO Status: DIS RCR Eval Date: Discharge Date: 08/11/13 DATE OF SERVICE: This patient was referred to physical therapy by Dr. Alissa Jimenes with the diagnoses of headache, cervical spasm and fibromyalgia. She has been seen in our clinic times a total of 13 visits. Her physical therapy has mainly consisted of cervical manual therapy for soft tissue mobilization and deep tissue release, moist heat treatments, therapeutic activities and therapeutic exercise. She has been instructed in a home exercise program. She appeared to be tolerating therapy well when she canceled her last scheduled appointment. To my knowledge, she has not contacted us to schedule any further physical therapy. On July 23, 2013, she stated, I am so much better. She also stated that she felt like the physical therapy is what she was needing. I hope that she is continuing to improve. I am going to go ahead and discharge her chart at this time, but we would be happy to resume therapy in the future as needed/indicated. Leatha Rabago, PT C C: Alissa Jimenes DO T: NTS JOB: [id number] <Electronically signed by Leatha Rabago > 09/07/13 0923 CC: * Signed Sena Veloz Work Phone: Start: 07-06-2013 End: 07-06-2013 Inital Evaluation - PT Comments: See Note; NOTES: [facility] [address] [place], [place] [address] Fax REHABILITATION SERVICES INITIAL EVALUATION MR#: [id number] Acct: [id number] Name: DALILA KING Rep #: [id number] : 1950 62 From: Leatha Rabago Referring DrMelvin: Alissa Jimenes DO Status: REG RCR Insurance: JOE Woodward Date: DATE OF SERVICE: 07/02/2013 SUBJECTIVE: This patient presents to physical therapy with complaint of generalized pain and stiffness but specifically neck and upper extremity symptoms, left greater than right. 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 She enjoys walking, reading, swimming and helping take care of her grandchildren. She reports that she helps with her grandchildren ages 4 and 10 on a daily basis. Her left neck pain is intermittent and ranges in intensity from 0/10 to 8/10. She also reports intermittent right neck pain. She states that she has bilateral upper extremity constant aching. She remembers seeing the doctor for her neck pain back in October, but she knows that her neck pain has been worsening since at least September 20, 2012. She states that her arthritis doctor has also known for a long time that she has neck pain. She reports intermittent head pain also. The symptoms started for no apparent reason. Currently, bending, sitting, turning her head, especially to the left, lying down and lifting increase her pain. The pain is disturbing her sleep. She reports increased stiffness in the morning. Other than taking arthritis medications prescribed by Dr. Lane and having a few massages, she has not had any other previous treatments for this. She reports that after having a massage, her pain was right back within an hour. She denies dizziness, ringing in the ears, nausea or difficulty swallowing. MEDICATIONS: Include methotrexate and Plaquenil. PAST MEDICAL HISTORY: Significant for rheumatoid arthritis, osteoarthritis, fibromyalgia, hysterectomy and bladder suspension in November of 2012. She states that she did have an x-ray of her neck, but it did not show any changes since the x-ray she had taken in 2005 and 2005 is about the time she remembers having trouble with her neck. She also has a CAT scan of her brain pending. She denies having been in any accidents or any unexplained weight loss. OBJECTIVE: This patient ambulates independently into physical therapy with no gross deviations noted. Her sitting posture is fair. Her standing posture is fair. She has a protruded head, but no torticollis. Active correction of her sitting posture decreases her complaint of neck pain. Cervical movement loss: Protrusion -- minimal, flexion -- minimal, retraction -- major, extension -- major, bilateral side bending -- moderate, bilateral rotation -- moderate. She has generalized neck stiffness in all planes. 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 The patient is right hand dominant. Bilateral upper extremity light touch sensation is grossly intact and symmetrical. Bilateral upper extremity reflexes were not elicited. She has positive bilateral upper extremity dural signs right greater than left. ASSESSMENT: This patient is a 62-year-old female with complaint of generalized stiffness, but specifically neck and upper extremity symptoms, left greater than right. She presents with bilateral neck, upper trapezius and postural pain and tightness along with general complaint of joint pain and stiffness. GOALS: 1. Decrease complaint of neck pain. 2. Decrease complaint of bilateral upper extremity symptoms. 3. Improved bending, sitting, lifting, head turning, lying and sleeping function. 4. Instruct in prophylaxis. PLAN: We plan to see this patient 3 times a week x6 weeks beginning with bilateral upper trapezius and posterior cervical musculature, soft tissue mobilization along with postural stretching and strengthening. I would expect a transition to aquatic therapy to be appropriate for general range of motion, stretching and strengthening along with pain relief during the second half of this episode of care. She was agreeable with this plan of care. Leatha Rabago, PT T: [place] JOB: [id number] <Electronically signed by Leatha Rabago > 07/06/13 0841 CC: Signed For Medicare only, by signing this I certify the plan of care. Physicians Signature Date Sena Veloz Work Phone: Start: 06-30-2013 End: 06-30-2013 Cerv Spine 4 or 5 Views Comments: See Note; NOTES: [facility] Imaging Services [address] [place] [address] Radiology Report MR#: [id number] Acct: [id number] Name: DALILA KING Rep #: [id number] : 1950 F 62 From: Nael Levy DO PCP: Status: REG CLI Study: Cerv Spine 4 or 5 Views Date of Exam: 06/30/13 Exam# [id number] Ordering Dr: Alissa Jimenes DO STUDY: X-RAY - CERVICAL SPINE REASON FOR EXAM: Female, 62 years old. Neck pain radiating into the arms. TECHNIQUE: AP, lateral, open mouth and both oblique views of the cervical spine were obtained. COMPARISON: August 28, 2006. FINDINGS: Normal anterior atlantoaxial articulation. Normal odontoid process. Normal cervical lordosis. There is stable multi-level endplate spondylosis. There is multi-level degenerative disc disease with multilevel disc space narrowing. There is retrolisthesis of C4 on C5-3 millimeters which is unchanged from the previous examination. There is no facet joint subluxation. There is no significant neural foraminal narrowing. The soft tissue structures are unremarkable. IMPRESSION: Degenerative changes of the cervical spine, essentially unchanged from August 28, 2006. Signed: Nael Levy D.O. June 30, 2013 at 8:00:53 PM EDT [phone] Electronically Signed HH/HH If you are the referring physician and would like to consult with the radiologist who provided this interpretation, please contact Nael Levy D.O. at [phone]. If this radiologist is unavailable, you will be directed to another radiologist to assist. If you are a patient with a question regarding this report, please contact your referring physician directly. Professional Interpretation Provided By: [facility], Phone , These documents contain legally protected and confidential health information intended only for the use of the individual or entity named above. If you are not the intended recipient, you are hereby notified that any disclosure, copying, distribution, or other use of these documents is strictly prohibited. If you have received this information in error, please notify the sender immediately and arrange for the return or destruction of these documents. CC: Alissa Jimenes DO Design Technician: Signed Alissaleandra Tomason Work Phone: Bladder sx Bushra Messenger Plan of Treatment Date Care Activity Detail Author Start: 06-25-2022 Procedure Education Eprescribed prescriptions (G8553) [facility] Work Phone: Start: 06-15-2020 Procedure Education Eprescribed prescriptions (G8553) [facility] Work Phone: Start: 06-15-2020 Provider Instructions for Treatment Reviewed Lab [facility] Work Phone: Start: 06-15-2020 Assay of triiodothyronine t3 free T3, FREE (TRIDOTHYRONINE) ([id number]) [facility] Work Phone: Immunizations Immunization Date Immunization Notes Care Provider [facility] 07-12-2019 zoster vaccine, live Alissa Jimenes [facility] Work Phone: Payers Date Payer Category Payer Unknown [id number] 2007 Unknown [id number] 1996 Unknown [id number] 1950 Unknown [id number] Unknown Unknown [id number] Social History Date Type Detail Facility Caffeine Use Caffeine Use [facility] Work Phone: Instructions Note Date & Type Note Facility [facility] Work Phone: Instructions Note Date & Type Note Facility [facility] Work Phone: Instructions Note Date & Type Note Facility [facility] Work Phone: Family History No Family History Records FoundUnknown Family Member Name Dates Details Father Comments:Massive DC Status:Active Maternal Grandmother Comments:Breast CA Status:Active Mother Comments:Shan Status:Active Unknown Family Member Name Dates Details Father Comments:Massive DC Status:Active Maternal Grandmother Comments:Breast CA Status:Active Mother Comments:Shan Status:Active Unknown Family Member Name Dates Details Father Comments:Massive DC Status:Active Maternal Grandmother Comments:Breast CA Status:Active Mother Comments:Shan Status:Active Unknown Family Member Name Dates Details Father Comments:Massive DC Status:Active Maternal Grandmother Comments:Breast CA Status:Active Mother Comments:Shan Status:Active Unknown Family Member Name Dates Details Father Comments:Massive DC Status:Active Maternal Grandmother Comments:Breast CA Status:Active Mother Comments:Shan Status:Active Unknown Family Member Name Dates Details Father Comments:Massive DC Status:Active Maternal Grandmother Comments:Breast CA Status:Active Mother Comments:Shan Status:Active Unknown Family Member Name Dates Details Father Comments:Massive DC Status:Active Maternal Grandmother Comments:Breast CA Status:Active Mother Comments:Shan Status:Active Unknown Family Member Name Dates Details Father Comments:Massive DC Status:Active Maternal Grandmother Comments:Breast CA Status:Active Mother Comments:Shan Status:Active Unknown Family Member Name Dates Details Father Comments:Massive DC Status:Active Maternal Grandmother Comments:Breast CA Status:Active Mother Comments:Shan Status:Active Unknown Family Member Name Dates Details Father Comments:Massive DC Status:Active Maternal Grandmother Comments:Breast CA Status:Active Mother Comments:Shan Status:Active Unknown Family Member Name Dates Details Father Comments:Massive DC Status:Active Maternal Grandmother Comments:Breast CA Status:Active Mother Comments:Shan Status:Active Unknown Family Member Name Dates Details Father Comments:Massive DC Status:Active Maternal Grandmother Comments:Breast CA Status:Active Mother Comments:Shan Status:Active Unknown Family Member Name Dates Details Father Comments:Massive DC Status:Active Maternal Grandmother Comments:Breast CA Status:Active Mother Comments:Shan Status:Active Instructions Name Dates Details How to access [employer]ion online Indication:BMI 25.0-25.9,adult Start:23-Jan-2018 Instruction Type:Patient Education How to access health informa tion online - Detail Indication:BMI 25.0-25.9,adult Start:23-Jan-2018 Instruction Type:Patient Education Patient Instructions Indication:BMI 25.0-25.9,adult Start:23-Jan-2018 Instruction Type:Provider Instructions for Treatment How to access health informa tion online Indication:BMI 25.0-25.9,adult Start:09-Oct-2017 Instruction Type:Patient Education How to access health informa tion online - Detail Indication:BMI 25.0-25.9,adult Start:09-Oct-2017 Instruction Type:Patient Education Patient Instructions Indication:Sinusitis, bacterial Start:09-Oct-2017 Instruction Type:Provider Instructions for Treatment How to access health informa tion online Indication:Acute sinusitis, unspecified Start:09-May-2014 Instruction Type:Patient Education How to access health informa tion online - Detail Indication:Acute sinusitis, unspecified Start:09-May-2014 Instruction Type:Patient Education Patient Instructions Indication:Spasm of cervical paraspinous muscle Start:24-Nov-2012 Instruction Type:Provider Instructions for Treatment Name Dates Details How to access health informa tion online Indication:BMI 25.0-25.9,adult Start:23-Jan-2018 Instruction Type:Patient Education How to access health informa tion online - Detail Indication:BMI 25.0-25.9,adult Start:23-Jan-2018 Instruction Type:Patient Education Patient Instructions Indication:BMI 25.0-25.9,adult Start:23-Jan-2018 Instruction Type:Provider Instructions for Treatment How to access health informa tion online Indication:BMI 25.0-25.9,adult Start:09-Oct-2017 Instruction Type:Patient Education How to access health informa tion online - Detail Indication:BMI 25.0-25.9,adult Start:09-Oct-2017 Instruction Type:Patient Education Patient Instructions Indication:Sinusitis, bacterial Start:09-Oct-2017 Instruction Type:Provider Instructions for Treatment How to access health informa tion online Indication:Acute sinusitis, unspecified Start:09-May-2014 Instruction Type:Patient Education How to access health informa tion online - Detail Indication:Acute sinusitis, unspecified Start:09-May-2014 Instruction Type:Patient Education Patient Instructions Indication:Spasm of cervical paraspinous muscle Start:24-Nov-2012 Instruction Type:Provider Instructions for Treatment Name Dates Details How to access health informa tion online Indication:BMI 25.0-25.9,adult Start:23-Jan-2018 Instruction Type:Patient Education How to access health informa tion online - Detail Indication:BMI 25.0-25.9,adult Start:23-Jan-2018 Instruction Type:Patient Education Patient Instructions Indication:BMI 25.0-25.9,adult Start:23-Jan-2018 Instruction Type:Provider Instructions for Treatment How to access health informa tion online Indication:BMI 25.0-25.9,adult Start:09-Oct-2017 Instruction Type:Patient Education How to access health informa tion online - Detail Indication:BMI 25.0-25.9,adult Start:09-Oct-2017 Instruction Type:Patient Education Patient Instructions Indication:Sinusitis, bacterial Start:09-Oct-2017 Instruction Type:Provider Instructions for Treatment How to access health informa tion online Indication:Acute sinusitis, unspecified Start:09-May-2014 Instruction Type:Patient Education How to access health informa tion online - Detail Indication:Acute sinusitis, unspecified Start:09-May-2014 Instruction Type:Patient Education Patient Instructions Indication:Spasm of cervical paraspinous muscle Start:24-Nov-2012 Instruction Type:Provider Instructions for Treatment Name Dates Details How to access health informa tion online Indication:Nonsmoker Start:12-Jun-2020 Instruction Type:Patient Education How to access health informa tion online - Detail Indication:Nonsmoker Start:12-Jun-2020 Instruction Type:Patient Education Patient Instructions Indication:Nonsmoker Start:12-Jun-2020 Instruction Type:Provider Instructions for Treatment How to access health informa tion online Indication:BMI 25.0-25.9,adult Start:23-Jan-2018 Instruction Type:Patient Education How to access health informa tion online - Detail Indication:BMI 25.0-25.9,adult Start:23-Jan-2018 Instruction Type:Patient Education Patient Instructions Indication:BMI 25.0-25.9,adult Start:23-Jan-2018 Instruction Type:Provider Instructions for Treatment How to access health informa tion online Indication:BMI 25.0-25.9,adult Start:09-Oct-2017 Instruction Type:Patient Education How to access health informa tion online - Detail Indication:BMI 25.0-25.9,adult Start:09-Oct-2017 Instruction Type:Patient Education Patient Instructions Indication:Sinusitis, bacterial Start:09-Oct-2017 Instruction Type:Provider Instructions for Treatment How to access health informa tion online Indication:Acute sinusitis, unspecified Start:09-May-2014 Instruction Type:Patient Education How to access health informa tion online - Detail Indication:Acute sinusitis, unspecified Start:09-May-2014 Instruction Type:Patient Education Patient Instructions Indication:Spasm of cervical paraspinous muscle Start:24-Nov-2012 Instruction Type:Provider Instructions for Treatment Name Dates Details How to access health informa tion online Indication:Nonsmoker Start:15-Jun-2020 Instruction Type:Patient Education How to access health informa tion online - Detail Indication:Nonsmoker Start:15-Jun-2020 Instruction Type:Patient Education Patient Instructions Indication:Nonsmoker Start:15-Jun-2020 Instruction Type:Provider Instructions for Treatment How to access health informa tion online Indication:Nonsmoker Start:12-Jun-2020 Instruction Type:Patient Education How to access health informa tion online - Detail Indication:Nonsmoker Start:12-Jun-2020 Instruction Type:Patient Education Patient Instructions Indication:Nonsmoker Start:12-Jun-2020 Instruction Type:Provider Instructions for Treatment How to access health informa tion online Indication:BMI 25.0-25.9,adult Start:23-Jan-2018 Instruction Type:Patient Education How to access health informa tion online - Detail Indication:BMI 25.0-25.9,adult Start:23-Jan-2018 Instruction Type:Patient Education Patient Instructions Indication:BMI 25.0-25.9,adult Start:23-Jan-2018 Instruction Type:Provider Instructions for Treatment How to access health informa tion online Indication:BMI 25.0-25.9,adult Start:09-Oct-2017 Instruction Type:Patient Education How to access health informa tion online - Detail Indication:BMI 25.0-25.9,adult Start:09-Oct-2017 Instruction Type:Patient Education Patient Instructions Indication:Sinusitis, bacterial Start:09-Oct-2017 Instruction Type:Provider Instructions for Treatment How to access health informa tion online Indication:Acute sinusitis, unspecified Start:09-May-2014 Instruction Type:Patient Education How to access health informa tion online - Detail Indication:Acute sinusitis, unspecified Start:09-May-2014 Instruction Type:Patient Education Patient Instructions Indication:Spasm of cervical paraspinous muscle Start:24-Nov-2012 Instruction Type:Provider Instructions for Treatment Name Dates Details How to access health informa tion online Indication:Nonsmoker Start:15-Jun-2020 Instruction Type:Patient Education How to access health informa tion online - Detail Indication:Nonsmoker Start:15-Jun-2020 Instruction Type:Patient Education Patient Instructions Indication:Nonsmoker Start:15-Jun-2020 Instruction Type:Provider Instructions for Treatment How to access health informa tion online Indication:Nonsmoker Start:12-Jun-2020 Instruction Type:Patient Education How to access health informa tion online - Detail Indication:Nonsmoker Start:12-Jun-2020 Instruction Type:Patient Education Patient Instructions Indication:Nonsmoker Start:12-Jun-2020 Instruction Type:Provider Instructions for Treatment How to access health informa tion online Indication:BMI 25.0-25.9,adult Start:23-Jan-2018 Instruction Type:Patient Education How to access health informa tion online - Detail Indication:BMI 25.0-25.9,adult Start:23-Jan-2018 Instruction Type:Patient Education Patient Instructions Indication:BMI 25.0-25.9,adult Start:23-Jan-2018 Instruction Type:Provider Instructions for Treatment How to access health informa tion online Indication:BMI 25.0-25.9,adult Start:09-Oct-2017 Instruction Type:Patient Education How to access health informa tion online - Detail Indication:BMI 25.0-25.9,adult Start:09-Oct-2017 Instruction Type:Patient Education Patient Instructions Indication:Sinusitis, bacterial Start:09-Oct-2017 Instruction Type:Provider Instructions for Treatment How to access health informa tion online Indication:Acute sinusitis, unspecified Start:09-May-2014 Instruction Type:Patient Education How to access health informa tion online - Detail Indication:Acute sinusitis, unspecified Start:09-May-2014 Instruction Type:Patient Education Patient Instructions Indication:Spasm of cervical paraspinous muscle Start:24-Nov-2012 Instruction Type:Provider Instructions for Treatment Name Dates Details How to access health informa tion online Indication:Nonsmoker Start:15-Jun-2020 Instruction Type:Patient Education How to access health informa tion online - Detail Indication:Nonsmoker Start:15-Jun-2020 Instruction Type:Patient Education Patient Instructions Indication:Nonsmoker Start:15-Jun-2020 Instruction Type:Provider Instructions for Treatment How to access health informa tion online Indication:Nonsmoker Start:12-Jun-2020 Instruction Type:Patient Education How to access health informa tion online - Detail Indication:Nonsmoker Start:12-Jun-2020 Instruction Type:Patient Education Patient Instructions Indication:Nonsmoker Start:12-Jun-2020 Instruction Type:Provider Instructions for Treatment How to access health informa tion online Indication:BMI 25.0-25.9,adult Start:23-Jan-2018 Instruction Type:Patient Education How to access health informa tion online - Detail Indication:BMI 25.0-25.9,adult Start:23-Jan-2018 Instruction Type:Patient Education Patient Instructions Indication:BMI 25.0-25.9,adult Start:23-Jan-2018 Instruction Type:Provider Instructions for Treatment How to access health informa tion online Indication:BMI 25.0-25.9,adult Start:09-Oct-2017 Instruction Type:Patient Education How to access health informa tion online - Detail Indication:BMI 25.0-25.9,adult Start:09-Oct-2017 Instruction Type:Patient Education Patient Instructions Indication:Sinusitis, bacterial Start:09-Oct-2017 Instruction Type:Provider Instructions for Treatment How to access health informa tion online Indication:Acute sinusitis, unspecified Start:09-May-2014 Instruction Type:Patient Education How to access health informa tion online - Detail Indication:Acute sinusitis, unspecified Start:09-May-2014 Instruction Type:Patient Education Patient Instructions Indication:Spasm of cervical paraspinous muscle Start:24-Nov-2012 Instruction Type:Provider Instructions for Treatment Name Dates Details How to access health informa tion online Indication:Nonsmoker Start:12-Jun-2020 Instruction Type:Patient Education How to access health informa tion online - Detail Indication:Nonsmoker Start:12-Jun-2020 Instruction Type:Patient Education Patient Instructions Indication:Nonsmoker Start:12-Jun-2020 Instruction Type:Provider Instructions for Treatment How to access health informa tion online Indication:BMI 25.0-25.9,adult Start:23-Jan-2018 Instruction Type:Patient Education How to access health informa tion online - Detail Indication:BMI 25.0-25.9,adult Start:23-Jan-2018 Instruction Type:Patient Education Patient Instructions Indication:BMI 25.0-25.9,adult Start:23-Jan-2018 Instruction Type:Provider Instructions for Treatment How to access health informa tion online Indication:BMI 25.0-25.9,adult Start:09-Oct-2017 Instruction Type:Patient Education How to access health informa tion online - Detail Indication:BMI 25.0-25.9,adult Start:09-Oct-2017 Instruction Type:Patient Education Patient Instructions Indication:Sinusitis, bacterial Start:09-Oct-2017 Instruction Type:Provider Instructions for Treatment How to access health informa tion online Indication:Acute sinusitis, unspecified Start:09-May-2014 Instruction Type:Patient Education How to access health informa tion online - Detail Indication:Acute sinusitis, unspecified Start:09-May-2014 Instruction Type:Patient Education Patient Instructions Indication:Spasm of cervical paraspinous muscle Start:24-Nov-2012 Instruction Type:Provider Instructions for Treatment Name Dates Details How to access health informa tion online Indication:Nonsmoker Start:15-Jun-2020 Instruction Type:Patient Education How to access health informa tion online - Detail Indication:Nonsmoker Start:15-Jun-2020 Instruction Type:Patient Education Patient Instructions Indication:Nonsmoker Start:15-Jun-2020 Instruction Type:Provider Instructions for Treatment How to access health informa tion online Indication:Nonsmoker Start:12-Jun-2020 Instruction Type:Patient Education How to access health informa tion online - Detail Indication:Nonsmoker Start:12-Jun-2020 Instruction Type:Patient Education Patient Instructions Indication:Nonsmoker Start:12-Jun-2020 Instruction Type:Provider Instructions for Treatment How to access health informa tion online Indication:BMI 25.0-25.9,adult Start:23-Jan-2018 Instruction Type:Patient Education How to access health informa tion online - Detail Indication:BMI 25.0-25.9,adult Start:23-Jan-2018 Instruction Type:Patient Education Patient Instructions Indication:BMI 25.0-25.9,adult Start:23-Jan-2018 Instruction Type:Provider Instructions for Treatment How to access health informa tion online Indication:BMI 25.0-25.9,adult Start:09-Oct-2017 Instruction Type:Patient Education How to access health informa tion online - Detail Indication:BMI 25.0-25.9,adult Start:09-Oct-2017 Instruction Type:Patient Education Patient Instructions Indication:Sinusitis, bacterial Start:09-Oct-2017 Instruction Type:Provider Instructions for Treatment How to access health informa tion online Indication:Acute sinusitis, unspecified Start:09-May-2014 Instruction Type:Patient Education How to access health informa tion online - Detail Indication:Acute sinusitis, unspecified Start:09-May-2014 Instruction Type:Patient Education Patient Instructions Indication:Spasm of cervical paraspinous muscle Start:24-Nov-2012 Instruction Type:Provider Instructions for Treatment Name Dates Details How to access health informa tion online Indication:Nonsmoker Start:12-Jun-2020 Instruction Type:Patient Education How to access health informa tion online - Detail Indication:Nonsmoker Start:12-Jun-2020 Instruction Type:Patient Education Patient Instructions Indication:Nonsmoker Start:12-Jun-2020 Instruction Type:Provider Instructions for Treatment How to access health informa tion online Indication:BMI 25.0-25.9,adult Start:23-Jan-2018 Instruction Type:Patient Education How to access health informa tion online - Detail Indication:BMI 25.0-25.9,adult Start:23-Jan-2018 Instruction Type:Patient Education Patient Instructions Indication:BMI 25.0-25.9,adult Start:23-Jan-2018 Instruction Type:Provider Instructions for Treatment How to access health informa tion online Indication:BMI 25.0-25.9,adult Start:09-Oct-2017 Instruction Type:Patient Education How to access health informa tion online - Detail Indication:BMI 25.0-25.9,adult Start:09-Oct-2017 Instruction Type:Patient Education Patient Instructions Indication:Sinusitis, bacterial Start:09-Oct-2017 Instruction Type:Provider Instructions for Treatment How to access health informa tion online Indication:Acute sinusitis, unspecified Start:09-May-2014 Instruction Type:Patient Education How to access health informa tion online - Detail Indication:Acute sinusitis, unspecified Start:09-May-2014 Instruction Type:Patient Education Patient Instructions Indication:Spasm of cervical paraspinous muscle Start:24-Nov-2012 Instruction Type:Provider Instructions for Treatment Advance Directives No Advanced Directives Records Found Name Dates Details Immunization Registry [place] - Effective on 05/24/2019. Expiration date unspecified Effective:24-May-2019 Name Dates Details Immunization Registry [place] - Effective on 07/13/2019. Expiration date unspecified Effective:13-Jul-2019 Name Dates Details Immunization Registry [place] - Effective on 07/13/2019. Expiration date unspecified Effective:13-Jul-2019 Name Dates Details Immunization Registry [place] - Effective on 07/13/2019. Expiration date unspecified Effective:13-Jul-2019 Name Dates Details Immunization Registry [place] - Effective on 07/13/2019. Expiration date unspecified Effective:13-Jul-2019 Name Dates Details Immunization Registry [place] - Effective on 07/13/2019. Expiration date unspecified Effective:13-Jul-2019 Name Dates Details Immunization Registry [place] - Effective on 07/13/2019. Expiration date unspecified Effective:13-Jul-2019 Name Dates Details Immunization Registry [place] - Effective on 07/13/2019. Expiration date unspecified Effective:13-Jul-2019 Name Dates Details Immunization Registry [place] - Effective on 07/13/2019. Expiration date unspecified Effective:13-Jul-2019 Name Dates Details Immunization Registry [place] - Effective on 07/13/2019. Expiration date unspecified Effective:13-Jul-2019 Name Dates Details Immunization Registry [place] - Effective on 07/13/2019. Expiration date unspecified Effective:13-Jul-2019 Summary Purpose Additional Source Comments INFORMATION SOURCE (unrecogn ized section and content) FOR RECORDS PERTAINING TO PATIENTS WHO ARE OR HAVE BEEN ENROLLED IN A CHEMICAL DEPENDENCY/SUBSTANCEABUSE PROGRAM, SOME INFORMATION MAY BE OMITTED. This clinical summary was aggregated from multiple sources. Caution should be exercised in using it in the provision of clinical care. This summary normalizes information from multiple sources, and as a consequence, information in this document may materially change the coding, format and clinical context of patient data. In addition, data may be omitted in some cases. CLINICAL DECISIONS SHOULD BE BASED ON THE PRIMARY CLINICAL RECORDS. [facility] [employer] provides no warranty or guarantee of the accuracy or completeness of information in this document.
[2023-09-16 10:00] LABS: Absolute Lymphocyte Count 1.74 X10^3/uL (0.83-4.51); Absolute Neutrophil Count 6.4 X10^3/uL (2.0-7.7); Basophil# 0.02 X10^3/uL; Basophil% 0.2 % (0-1); Eosinophil# 0.07 X10^3/uL; Eosinophils% 0.8 % (0-5); Hematocrit 42.2 % (37-47); Hemoglobin 13.8 g/dL (12.0-15.0); Lymphocyte # 1.74 X10^3/ul (0.83-4.51); Lymphocyte % 19.6 % (19-41); Mean Corp Hgb Conc 32.7 g/dL (32-36); Mean Corpuscular Hgb 31.5 pg (27.0-32.0); Mean Corpuscular Volume 96.3 fL (81-99); Mean Platelet Vol. 9.9 fl (6.2-12.0); Monocyte# 0.63 X10^3/uL; Monocyte% 7.1 % (0-10); NRBC Flagged by Analyzer 0 % (0-5); Neutrophil # 6.41 X10^3/uL (2.7-7.7); Platelet Count 310 K/mm3 (150-450); RBC Distribution Width SD 49.6 fl (35.1-43.9); Red Blood Count 4.38 M/mm3 (4.2-5.4); White Blood Count 8.9 K/mm3 (4.4-11.0)
[2023-09-16 10:50] LABS: AST(SGOT) 21 U/L (15-37); Alanine Aminotransfer ALT/SGPT 25 U/L (13-56); Albumin, Serum 3.5 g/dL (3.2-5.0); Alkaline Phosphatase 84 U/L (45-117); Anion Gap 6 (5-15); BUN 16 mg/dL (7-18); BUN/Creat Ratio 18.3 RATIO (10-20); Calcium,Total 9.7 mg/dL (8.5-10.1); Chloride 106 mmol/L (98-107); Creatinine, Serum 0.87 mg/dL (0.55-1.02); EST Glomerular Filtration Rate 68 mL/min (>60); Est Glom Filt Rate - Afr Amer 82 mL/min (>60); Globulin 3.6 g/dL (2.2-4.2); Glucose 96 mg/dL (74-106); Potassium 4.1 mmol/L (3.5-5.1); Protein, Total 7.1 g/dL (6.4-8.2); Sodium Level 139 mmol/L (136-145)
== END | disposition home or self-care (01) ==
LOC: MTLAB 07:51
PROVIDERS: PCP Internal Medicine; Referring Provider Internal Medicine Rheumatology; Visit Provider Internal Medicine Rheumatology
DX: M06.4 Inflammatory polyarthropathy (principal); M79.7 Fibromyalgia; M15.9 Polyosteoarthritis, unspecified; M85.80 Other specified disorders of bone density and structure, unspecified site; Z79.899 Other long term (current) drug therapy
CPT/HCPCS: 36415; 80053; 85025

== ENCOUNTER → 2023-10-30 | Outpatient (CLI) | payer MEDICARE, SELFPAY ==
--- NOTE | 2023-10-30 07:50 | US_ITS ---
STUDY: ULTRASOUND BREAST - LEFT REASON FOR EXAM: Female, 73 years old. Follow-up for left breast biopsy. TECHNIQUE: Axial and longitudinal images of the LEFT breast were performed with a high resolution ultrasound transducer. # OF IMAGES: 29 COMPARISON: Comparison is made with prior mammogram done earlier today as well as prior sonogram of the left breast dated April 24, 2023. FINDINGS: LEFT Breast: There is a 3 mm x 3 mm x 2 mm cystic nodule at the 10:00 position of the breast at 4 cm from the nipple. A tissue clip marker is seen within it. US/Breast Limited Unilateral IMPRESSION: 3 mm x 3 mm x 2 mm cystic nodule at the 10:00 position of the breast at 4 cm from the nipple. A tissue clip marker is seen within it. ASSESSMENT CATEGORY: BIRADS Category 2: Benign. A letter regarding these results will be sent to the patient by the facility within 30 days. Electronically Signed: Kendrick Kurtz MD at 14:37 EST ,
--- OUTSIDE RECORDS SUMMARY | 2023-10-30 07:58 | XMS RPT_ITS | CCD ---
Author Name Unknown Address [address] [place] [address] Organization [facility] Care Team Providers Care Fur Glazer Name Role Phone CalderaKristy Unavailable Unavailable Caldera, Kristy M Unavailable Unavailable Caldera, Kristy M Unavailable Unavailable Caldera, Kristy M Unavailable Unavailable Yaima Womack MD Unavailable [phone] Alissa Jimenes Unavailable Viviane Ramirez Unavailable Bushra Diana Unavailable Unavailable Unavailable Unavailable Harry Hoskins Unavailable Deidra Beckham Unavailable Unavailable Bushra Diana Unavailable Unavailable Corina Rabago Unavailable Unavailable Alissa Jimenes DO Unavailable Viviane Ramirez Unavailable Dr. Harry Hoskins Unavailable Corina Rabago LPN Unavailable Unavailable Cindy PERDOMO [...] 08:39-0400 Body height 160.02 cm [facility]; [facility] Work Phone: 06-25-2022 08:39-0400 Body mass index (BMI) [Ratio] 24.98 kg/m2 [facility] Internal Medicine; [facility] Work Phone: 06-25-2022 08:39-0400 Body surface area Derived from formula 1.67 m2 [facility] Internal Medicine; [facility] Work Phone: 06-25-2022 08:39-0400 Body temperature 96.9 [degF] [facility]; [facility] Work Phone: 06-25-2022 08:39-0400 Body weight 63.96 kg [facility]; [facility] Work Phone: 06-25-2022 08:39-0400 Diastolic blood pressure 82 mm[Hg] [facility]; [facility] Work [...] 08-23-2014 End: 08-23-2014 Annotation/Addendum Alissa Jimenes [facility] Chairman And Chief Creative Officer al Medicine Start: 05-09-2014 End: 05-09-2014 Office outpatient visit 15 minutes Alissa Jimenes [facility] Start: 06-30-2013 End: 06-30-2013 Patient encounter procedure Alissa Jimenes [facility] Start: 11-24-2012 End: 11-24-2012 Patient encounter procedure Alissa Jimenes [facility] Start: 07-20-2008 End: 07-20-2008 Patient encounter procedure Alissa Jimenes [facility] Internal Medicine Start: 03-03-2008 End: 03-03-2008 Office outpatient visit 40 minutes Alissa Jimenes [facility] Internal Medicine Start: 10-09-2007 End: 10-09-2007 Patient encounter procedure Alissa Jimenes [facility] Internal Medicine Start: 04-16-2007 End: 04-16-2007 Office outpatient visit 10 minutes Alissaleandra Tomason [facility] Internal Medicine Start: 03-25-2007 End: 03-25-2007 Patient encounter procedure Alissa Jimenes [facility] Internal Medicine Start: 03-18-2007 End: 03-18-2007 Office outpatient visit 25 minutes Alissa Jimenes [facility] Internal Medicine Start: 03-16-2007 End: 03-16-2007 Patient encounter procedure Alissa Jimenes [facility] Internal Medicine Start: 03-02-2007 End: 03-02-2007 Patient encounter procedure Alissa Jimenes [facility] Internal Medicine Start: 02-05-2007 End: 02-05-2007 Patient encounter procedure Alissaleandra Jimenes [facility] Internal Medicine Start: 09-15-2006 End: 09-15-2006 Office outpatient visit 25 minutes Alissa Jimenes [facility] Internal Medicine Start: 08-29-2006 End: 08-29-2006 Patient encounter procedure Alissa Jimenes [facility] Internal Medicine Start: 06-17-2006 End: 06-17-2006 Historical Summary Alissa Jimenes [facility] Founder Chairman And Chief Creative Officer al Medicine Procedures Date Procedure Procedure Detail Performing Clinician Start: 10-11-2021 End: 10-11-2021 SCRN MAMM (CAD)W/REYMUNDO BILAT Procedure Note: See Note; NOTES: [facility] Imaging Services [address] [place] [address] SCRN MAMM (CAD)W/REYMUNDO BILAT MR#: [id number] Acct: [id number] Name: DALILA KING Rep #: [id number] : 1950 F 71 From: Kendrick mock MD PCP: Dr. Alissa Jimenes, Status: REG CLI Study: SCRN MAMM (CAD)W/REYMUNDO BILAT Date of Exam: 10/02 Exam# [id number] Ordering Dr: Yaima Womack MAMMOGRAPHY - BILATERAL [...] delay biopsy of a clinically suspicious abnormality. [id number] Electronically Signed: Kendrick Kurtz MD at 11:09 EST , CC: Dr. Alissa Jimenes DO; Dr. Yaima Womack MD Spot Checker: Signed Alissa Jimenes DO Work Phone: Start: 10-11-2021 End: 10-11-2021 Serology Technician Office Visit Report Procedure Note: See Note; NOTES: [facility] [place] [address] [place] [address] OFFICE VISIT Date of Service: 10/11/21 MR#: [id number] Acct: [id number] Name: DALILA KING Rep #: [id number] : 1950 Provider: Dr. 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 Head: normal to inspection and normocephalic [...] 4 Views Procedure Note: See Note; NOTES: [facility] Radiology [address] [place] [address] Skull min 4 Views MR#: [id number] Acct: [id number] Name: DALILA KING Rep #: [id number] : 1950 F 70 From: Kendrick mock MD PCP: Dr. Alissa Jimenes DO Status: DEP AMB Study: Skull min 4 Views Date of Exam: 04/09/21 Exam# [id number] Ordering Dr: Carlos Kelly STUDY: X-RAY - [...] CC: GABI Kelly; Dr. Alissa Jimenes DO Spot Checker: Signed Alissa Jimenes DO Work Phone: Start: 04-09-2021 End: 04-09-2021 Urgent Care Visit Report Procedure Note: See Note; NOTES: [facility] [address] [place] [address] [address] [place] [address] OFFICE VISIT Date of Service: 04/09/21 MR#: [id number] Acct: [id number] Name: DALILA KING Rep #: [id number] : 1950 Provider: GABI landa Age/Sex: 70/F Location: [facility] Status: Signed Intake Vital Signs 04/09/21 10:18 [...] mg PO DAILY 09/08/18 [History Confirmed 04/09/21] multivitamin,nz-gcau-cynqqsy s 1 tab PO DAILY 09/08/18 [History [...] history: 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 This note was generated with [employer] dictation software. It may contain incorrect words, spelling, and punctuation that were not noted in checking the note before signing. Plan Details Other Orders: Orders: Skull min 4 Views Today W19.XXXA 04/09/21 1129 <Electronically signed by Carlos ASHLEY> Date Carlos ASHLEY Cosigner Signature: Date (if applicable) CC: Alissa Jalil DO Work Phone: Start: 10-13-2020 End: 10-13-2020 Transvaginal Non- Procedure Note: See Note; NOTES: [facility] Imaging Services [address] [place] [address] Transvaginal Non- MR#: [id number] Acct: [id number] Name: DALILA KING Rep #: [id number] : 1950 F 70 From: Prashant Escobar MD PCP: Dr. Alissa Jimenes DO Status: REG CLI Study: Transvaginal Non- Date of Exam: Exam# [id number] Ordering Dr: Yaima Womack STUDY: ULTRASOUND TRANSVAGINAL [...] Alissa Jimenes DO; Dr. Yaima Womack MD Spot Checker: Signed Alissa Jimenes DO Work Phone: Start: 10-10-2020 End: 10-10-2020 Serology Technician Office Visit Report Procedure Note: See Note; NOTES: [facility] Care [address] [place] [address] OFFICE VISIT Date of Service: 10/10/20 MR#: [id number] Acct: [id number] Name: DALILA KING Rep #: [id number] : 1950 Provider: Dr. 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 Chief Complaint: est annual [employer] Required: No Is patient in pain?: Yes [...] mg PO DAILY 09/08/18 [History Confirmed 10/10/20] multivitamin,pw-hqzp-lxyhmht s 1 tab PO DAILY 09/08/18 [History [...] Date Name GA/Weeks Outcome Route Bth Weight Infant Gen Labor Lgth Anesthesia Del Locatn Provider FOB Unknown 1978 Lela live - full term Unknown 1979 Edi live - full term HPI 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 Alissa Jimenes, DO Status: [facility] Study: SCRN MAMM (CAD)W/REYMUNDO BILAT Date of Exam: 09/01 05/22 Exam# [id number] Ordering Dr: Yaima Womack MAMMOGRAPHY - BILATERAL [...] delay biopsy of a clinically suspicious abnormality. [id number] Electronically Signed: Kendrick Kurtz MD at 10:56 EST , Service support , CC: Dr. Alissa Jimenes DO; Dr. Yaima Womack MD Spot Checker: Signed Alissa Jimenes DO Work Phone: Start: 09-23-2019 End: 09-23-2019 Dexa Bone Density Study Comments: See Note; NOTES: [facility] Imaging Services [address] [place], [place] [address] [address] Dexa Bone Density Study MR#: [id number] Acct: [id number] Name: DALILA KING Rep #: [id number] : 1950 F 69 From: Kendrick Kurtz MD PCP: Alissa Jimenes DO Status: REG CLI Study: Dexa Bone Density Study Date of Exam: 09/23/19 Exam# [id number] Ordering Dr: Yaima Womack MD STUDY: DUAL [...] CC: Alissa Jimenes DO; Yaima Womack MD Spot Checker: Signed Alissa Jimenes Start: 09-15-2019 End: 09-15-2019 SCREEN MAMM (CAD) W/REYMUNDO BILAT Comments: See Note; NOTES: [facility] Imaging Services [address] [place] [address] SCREEN MAMM (CAD) W/REYMUNDO BILAT MR#: [id number] Acct: [id number] Name: DALILA KING Rep #: [id number] : 1950 F 69 From: Kendrick Kurtz MD PCP: Alissa Jimenes DO Status: [facility] Study: SCREEN MAMM (CAD) W/REYMUNDO BILAT Date of Exam: 09/15/19 Exam# [id number] Ordering Dr: Yaima Womack MD MAMMOGRAPHY - [...] delay biopsy of a clinically suspicious abnormality. [id number] Electronically Signed: Kendrick Tessie, at 11:03 EST , Service support , CC: Alissa Jimenes DO; Yaima Womack MD Spot Checker: Signed Alissa Jimenes Start: 09-15-2019 End: 09-15-2019 Serology Technician Office Visit Report Comments: See Note; NOTES: [facility] [address] [place], [place] [address]. 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 DatName GA/WeeksOutcome Route [facility] LocaProviderFOB e ht en ia tn [...] no acute distress, well developed, well groomed [facility] Head: normal to inspection, normocephalic Ears: [...] CC: Alissa Jimenes Start: 09-10-2018 End: 09-10-2018 Serology Technician Office Visit Report Comments: See Note; NOTES: [facility] [address] [place] [address]. 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 Chief Complaint: est annual [employer] Required: No Is patient in pain?: No [...] mg PO DAILY 09/08/18 [History Confirmed 09/08/18] multivitamin,cd-cous-kemwshn s tablet 1 tab PO DAILY 09/08/18 [...] FOB t n h a n HPI LOOP TACKER annual exam: Details: DALILA KING is a [...] MAMM (CAD), BILAT Comments: See Note; NOTES: [facility] Imaging Services [address] [place] [address] SCREENING MAMM (CAD), BILAT MR#: [id number] Acct: [id number] Name: DALILA KING Rep #: [id number] : 1950 F 68 From: Kendrick Kurtz MD PCP: Alissa Jimenes DO Status: [facility] Study: SCREENING MAMM (CAD), BILAT Date of Exam: 09/08/18 Exam# [id number] Ordering Dr: Yaima Womack MD MAMMOGRAPHY - [...] delay biopsy of a clinically suspicious abnormality. [id number] Electronically Signed: Kendrick Kurtz MD at 12:55 EST Tel [phone], Service support , CC: Alissa Jimenes DO; Yaima Womack MD Spot Checker: Signed Alissa Jimenes Start: 08-15-2017 End: 08-15-2017 SCREENING MAMM (CAD), BILAT Comments: See Note; NOTES: [facility] Imaging Services [address] [place] [address] SCREENING MAMM (CAD), BILAT MR#: [id number] Acct: [id number] Name: DALILA KING Rep #: [id number] : 1950 F 67 From: Kendrick Kurtz MD PCP: Alissa iJmenes DO Status: REG CLI Study: SCREENING MAMM (CAD), BILAT Date of Exam: 08/15/17 Exam# [id number] Ordering Dr: Yaima Womack MD MAMMOGRAPHY - [...] delay biopsy of a clinically suspicious abnormality. [id number] Electronically Signed: Kendrick Kurtz MD at 10:55 EST Tel [phone], Service support , CC: Alissa Jimenes DO; Yaima Womack MD Spot Checker: Signed Alissa Jimenes Start: 07-21-2017 End: 07-21-2017 Urnls dip stick/tablet rgnt non-auto w/o micrscp Yaima Womack MD Work Phone: Start: 06-16-2017 Screening mammography Screening mammogram for breast cancer Yaima Womack MD Start: 11-28-2015 End: 11-28-2015 Brain/Head W/WO Contrast Comments: See Note; NOTES: [facility] Imaging Services [address] [place] [address] Verdana 4d Brain/Head W/WO Contrast MR#: [id number] Acct: [id number] Name: DALILA KING Rep #: [id number] : 1950 F 65 From: Loni Houston MD PCP: Alissa Jimenes DO Status: REG CLI Study: Brain/Head W/WO Contrast Date of Exam: 11/28/15 Exam# [id number] Ordering Dr: Alissa Jimenes DO STUDY: CT [...] changes of the brain. Electronically Signed: Loni Houston MD at 15:47 EDT Tel , Service support [phone], CC: Alissa Jimenes DO Spot Checker: Signed Alissa Jimenes Work Phone: Start: 09-07-2013 End: 09-07-2013 PT Discharge Summary Comments: See Note; NOTES: [facility] Physical Therapy [facility] [address] [place] [address] Fax REHABILITATION SERVICES DISCHARGE SUMMARY MR#: [id number] Acct: [id number] Name: DALILA KING Rep #: [id number] : 1950 63 From: Leatha Rabago Referring [...] C: Alissa Jimenes DO T: NTS JOB: [id number] <Electronically signed by Leatha Rabago > 09/07/13 0923 CC: * Signed Sena Veloz Work Phone: Start: 07-06-2013 End: 07-06-2013 Inital Evaluation - PT Comments: See Note; NOTES: [facility] Physical [facility] [address] [place], [place] [address] Fax REHABILITATION SERVICES INITIAL EVALUATION MR#: [id number] Acct: [id number] Name: DALILA KING Rep #: [id number] : 1950 62 From: Leatha Rabago Referring [...] generalized neck stiffness in all planes. Right cpr instructor strength equals 20 pounds, left cpr instructor strength equals 35 pounds. The patient is [...] care. Leatha Rabago, PT T: [place] JOB: [id number] <Electronically signed by Leatha Rabago > 07/06/13 0841 CC: Signed For Medicare only, by signing this I certify the plan of care. Physicians Signature Date Sena Veloz Work Phone: Start: 06-30-2013 End: 06-30-2013 Cerv Spine 4 or 5 Views Comments: See Note; NOTES: [facility] Imaging Services [address] [place] [address] Radiology Report MR#: [id number] Acct: [id number] Name: DALILA KING Rep #: [id number] : 1950 F 62 From: Nael Levy DO PCP: Status: REG CLI Study: Cerv Spine 4 or 5 Views Date of Exam: 06/30/13 Exam# [id number] Ordering Dr: Alissa Jimenes DO STUDY: X-RAY [...] June 30, 2013 at 8:00:53 PM EDT [phone] Electronically Signed HH/HH If you are the referring physician and would like to consult with the radiologist who provided this interpretation, please contact Nael Levy D.O. at [phone]. If this radiologist is unavailable, you will be directed to another radiologist to assist. If you are a patient with a question regarding this report, please contact your referring physician directly. Professional Interpretation Provided By: [facility], Phone , These documents contain legally [...] of these documents. CC: Alissa Jimenes DO Spot Checker: Signed Alissaleandra Tomason Work Phone: Bladder sx [...] of triiodothyronine t3 free T3, FREE (TRIDOTHYRONINE) ([id number]) [facility]; [facility] Work Phone: Immunizations Immunization Date Immunization Notes Care Provider [facility] 07-12-2019 zoster vaccine, live Alissa Jimenes [facility] Work Phone: Payers Date Payer Category Payer Unknown [id number] 2007 Unknown [id number] 1996 Unknown [id number] 1950 Unknown [id number] Unknown Unknown [id number] Social History Date Type Detail Facility Caffeine [...] Family Member Name Dates Details Father Comments:Massive [place] Status:Active Maternal Grandmother Comments:Breast [place] Status:Active Mother Comments:Sahn Status:Active Unknown Family Member Name Dates Details Father Comments:Massive [place] Status:Active Maternal Grandmother Comments:Breast [place] Status:Active Mother Comments:Shan Status:Active Unknown Family Member Name Dates Details Father Comments:Massive [place] Status:Active Maternal Grandmother Comments:Breast [place] Status:Active Mother Comments:Shan Status:Active Unknown Family Member Name Dates Details Father Comments:Massive [place] Status:Active Maternal Grandmother Comments:Breast [place] Status:Active Mother Comments:Shan Status:Active Unknown Family Member Name Dates Details Father Comments:Massive [place] Status:Active Maternal Grandmother Comments:Breast [place] Status:Active Mother Comments:Shan Status:Active Unknown Family Member Name Dates Details Father Comments:Massive [place] Status:Active Maternal Grandmother Comments:Breast [place] Status:Active Mother Comments:Shan Status:Active Unknown Family Member Name Dates Details Father Comments:Massive [place] Status:Active Maternal Grandmother Comments:Breast [place] Status:Active Mother Comments:Shan Status:Active Unknown Family Member Name Dates Details Father Comments:Massive [place] Status:Active Maternal Grandmother Comments:Breast [place] Status:Active Mother Comments:Shan Status:Active Unknown Family Member Name Dates Details Father Comments:Massive [place] Status:Active Maternal Grandmother Comments:Breast [place] Status:Active Mother Comments:Shan Status:Active Unknown Family Member Name Dates Details Father Comments:Massive [place] Status:Active Maternal Grandmother Comments:Breast [place] Status:Active Mother Comments:Shan Status:Active Unknown Family Member Name Dates Details Father Comments:Massive [place] Status:Active Maternal Grandmother Comments:Breast [place] Status:Active Mother Comments:Shan Status:Active Unknown Family Member Name Dates Details Father Comments:Massive [place] Status:Active Maternal Grandmother Comments:Breast [place] Status:Active Mother Comments:Shan Status:Active Unknown Family Member Name Dates Details Father Comments:Massive [place] Status:Active Maternal Grandmother Comments:Breast [place] Status:Active Mother Comments:Shan Status:Active Instructions Name Dates Details How to access [employer] tion online Indication:BMI 25.0-25.9,adult Start:23-Jan-2018 Instruction Type:Patient [...] Records Found Name Dates Details Immunization Registry [place] - Effective on 05/24/2019. Expiration date unspecified Effective:24-May-2019 Name Dates Details Immunization Registry [place] - Effective on 07/13/2019. Expiration date unspecified Effective:13-Jul-2019 Name Dates Details Immunization Registry [place] - Effective on 07/13/2019. Expiration date unspecified Effective:13-Jul-2019 Name Dates Details Immunization Registry [place] - Effective on 07/13/2019. Expiration date unspecified Effective:13-Jul-2019 Name Dates Details Immunization Registry [place] - Effective on 07/13/2019. Expiration date unspecified Effective:13-Jul-2019 Name Dates Details Immunization Registry [place] - Effective on 07/13/2019. Expiration date unspecified Effective:13-Jul-2019 Name Dates Details Immunization Registry [place] - Effective on 07/13/2019. Expiration date unspecified Effective:13-Jul-2019 Name Dates Details Immunization Registry [place] - Effective on 07/13/2019. Expiration date unspecified Effective:13-Jul-2019 Name Dates Details Immunization Registry [place] - Effective on 07/13/2019. Expiration date unspecified Effective:13-Jul-2019 Name Dates Details Immunization Registry [place] - Effective on 07/13/2019. Expiration date unspecified Effective:13-Jul-2019 Name Dates Details Immunization Registry [place] - Effective on 07/13/2019. Expiration date unspecified [...] BE BASED ON THE PRIMARY CLINICAL RECORDS. [facility] provides no warranty or guarantee of the accuracy or completeness of information in this document.
--- NOTE | 2023-10-30 08:05 | BI_ITS ---
MAMMOGRAPHY - BILATERAL SCREENING REASON FOR EXAM: Female, 73 years old. Routine annual screening examination. PERTINENT HISTORY: Grandmother with breast cancer. Prior left ultrasound-guided breast biopsy. TECHNIQUE: Digital bilateral breast reymundo (3D mammographic acquisition) in the CC and MLO projections. 2-D mediolateral oblique (MLO) and craniocaudad (CC) views of both breasts were obtained. CAD: Full Field Digital Mammography with Computer Added Detection was performed. COMPARISON: Comparison is made with prior study dated October 14, 2022 and October 11, 2021. FINDINGS: Breast Composition: The breasts are heterogeneously dense, which may obscure small masses. There are no dominant masses or suspicious calcifications. A tissue clip marker is seen in the deep central medial aspect of the left breast. The previously seen nodule at that site is not seen at this time. No other significant abnormalities are identified. BI/SCRN MAMM (CAD)W/REYMUNDO BILAT IMPRESSION: Stable bilateral screening mammogram. Yearly follow-up mammogram recommended. (A) ASSESSMENT CATEGORY: BIRADS Category 2: Benign. A letter regarding these results will be sent to the patient by the facility within 30 days. Approximately 10% of breast cancers are not detected by mammography. A normal mammogram should not delay biopsy of a clinically suspicious abnormality. [id number] Electronically Signed: Kendrick Kurtz MD at 10:14 EST ,
== END | disposition home or self-care (01) ==
LOC: OPUS 07:48
PROVIDERS: PCP Internal Medicine; Referring Provider Obstetrics & Gynecology; Visit Provider Obstetrics & Gynecology
DX: Z12.31 Encounter for screening mammogram for malignant neoplasm of breast (principal); R92.8 Other abnormal and inconclusive findings on diagnostic imaging of breast
CPT/HCPCS: 76642; 77063; 77067

== ENCOUNTER → 2023-12-12 | Outpatient (CLI) | payer MEDICARE, SELFPAY ==
[2023-12-12 10:34] LABS: Absolute Lymphocyte Count 1.41 X10^3/uL (0.83-4.51); Absolute Neutrophil Count 7.6 X10^3/uL (2.0-7.7); Basophil# 0.02 X10^3/uL; Basophil% 0.2 % (0-1); Eosinophil# 0.06 X10^3/uL; Eosinophils% 0.6 % (0-5); Hematocrit 38.3 % (37-47); Hemoglobin 12.6 g/dL (12.0-15.0); Lymphocyte # 1.41 X10^3/ul (0.83-4.51); Lymphocyte % 13.9 % (19-41); Mean Corp Hgb Conc 32.9 g/dL (32-36); Mean Corpuscular Hgb 31.2 pg (27.0-32.0); Mean Corpuscular Volume 94.8 fL (81-99); Mean Platelet Vol. 10.9 fl (6.2-12.0); Monocyte% 9.8 % (0-10); NRBC Flagged by Analyzer 0 % (0-5); Neutrophil # 7.64 X10^3/uL (2.7-7.7); Neutrophil % 75.1 % (47-70); Platelet Count 323 K/mm3 (150-450); RBC Distribution Width CV 14.6 % (11.6-14.6); RBC Distribution Width SD 49.7 fl (35.1-43.9); Red Blood Count 4.04 M/mm3 (4.2-5.4); White Blood Count 10.2 K/mm3 (4.4-11.0)
[2023-12-12 10:45] LABS: ALB/GLOB Ratio 0.9 RATIO (0.9-2.4); AST(SGOT) 21 U/L (15-37); Alanine Aminotransfer ALT/SGPT 32 U/L (13-56); Albumin, Serum 3.2 g/dL (3.2-5.0); Alkaline Phosphatase 78 U/L (45-117); Anion Gap 5 (5-15); BUN 10 mg/dL (7-18); BUN/Creat Ratio 11.3 RATIO (10-20); Calcium,Total 8.9 mg/dL (8.5-10.1); Chloride 105 mmol/L (98-107); Creatinine, Serum 0.88 mg/dL (0.55-1.02); EST Glomerular Filtration Rate 67 mL/min (>60); Est Glom Filt Rate - Afr Amer 81 mL/min (>60); Globulin 3.7 g/dL (2.2-4.2); Glucose 129 mg/dL (74-106); Potassium 4.3 mmol/L (3.5-5.1); Protein, Total 6.9 g/dL (6.4-8.2); Sodium Level 139 mmol/L (136-145)
== END | disposition home or self-care (01) ==
LOC: MTLAB 07:53
PROVIDERS: PCP Internal Medicine; Referring Provider Internal Medicine Rheumatology; Visit Provider Internal Medicine Rheumatology
DX: M06.4 Inflammatory polyarthropathy (principal); Z79.899 Other long term (current) drug therapy
CPT/HCPCS: 36415; 80053; 85025

== ENCOUNTER → 2024-03-09 | Outpatient (CLI) | payer MEDICARE, SELFPAY ==
[2024-03-09 12:36] LABS: AST(SGOT) 31 U/L (15-37); Alanine Aminotransfer ALT/SGPT 29 U/L (13-56); Albumin, Serum 3.4 g/dL (3.2-5.0); Alkaline Phosphatase 74 U/L (45-117); Anion Gap 4 (5-15); BUN 12 mg/dL (7-18); BUN/Creat Ratio 15.5 RATIO (10-20); Calcium,Total 8.7 mg/dL (8.5-10.1); Chloride 111 mmol/L (98-107); Creatinine, Serum 0.78 mg/dL (0.55-1.02); EST Glomerular Filtration Rate 78 mL/min (>60); Est Glom Filt Rate - Afr Amer 94 mL/min (>60); Globulin 3.3 g/dL (2.2-4.2); Glucose 85 mg/dL (74-106); Potassium 4.2 mmol/L (3.5-5.1); Protein, Total 6.7 g/dL (6.4-8.2); Sodium Level 141 mmol/L (136-145)
[2024-03-09 12:49] LABS: Absolute Lymphocyte Count 1.11 X10^3/uL (0.83-4.51); Absolute Neutrophil Count 2.6 X10^3/uL (2.0-7.7); Basophil# 0.03 X10^3/uL; Basophil% 0.7 % (0-1); Eosinophil# 0.07 X10^3/uL; Eosinophils% 1.7 % (0-5); Hematocrit 40.9 % (37-47); Hemoglobin 13.8 g/dL (12.0-15.0); Lymphocyte # 1.11 X10^3/ul (0.83-4.51); Lymphocyte % 26.8 % (19-41); Mean Corp Hgb Conc 33.7 g/dL (32-36); Mean Corpuscular Hgb 31.4 pg (27.0-32.0); Mean Corpuscular Volume 93.2 fL (81-99); Mean Platelet Vol. 10.5 fl (6.2-12.0); Monocyte# 0.31 X10^3/uL; Monocyte% 7.5 % (0-10); NRBC Flagged by Analyzer 0 % (0-5); Neutrophil # 2.61 X10^3/uL (2.7-7.7); Neutrophil % 63.1 % (47-70); Platelet Count 268 K/mm3 (150-450); RBC Distribution Width CV 14.9 % (11.6-14.6); RBC Distribution Width SD 50.6 fl (35.1-43.9); Red Blood Count 4.39 M/mm3 (4.2-5.4); White Blood Count 4.1 K/mm3 (4.4-11.0)
== END | disposition home or self-care (01) ==
LOC: MTLAB 09:11
PROVIDERS: PCP Internal Medicine; Referring Provider Internal Medicine Rheumatology; Visit Provider Internal Medicine Rheumatology
DX: M06.4 Inflammatory polyarthropathy (principal); M79.7 Fibromyalgia; Z79.899 Other long term (current) drug therapy
CPT/HCPCS: 36415; 80053; 85025

== ENCOUNTER → 2024-05-26 | Outpatient (CLI) | payer MEDICARE, SELFPAY ==
[2024-05-26 10:14] LABS: Absolute Lymphocyte Count 1.39 X10^3/uL (0.83-4.51); Absolute Neutrophil Count 2.4 X10^3/uL (2.0-7.7); Basophil# 0.03 X10^3/uL; Basophil% 0.7 % (0-1); Eosinophil# 0.12 X10^3/uL; Eosinophils% 2.7 % (0-5); Hematocrit 40.6 % (37-47); Hemoglobin 13.4 g/dL (12.0-15.0); Lymphocyte # 1.39 X10^3/ul (0.83-4.51); Lymphocyte % 31.2 % (19-41); Mean Corpuscular Hgb 31.4 pg (27.0-32.0); Mean Corpuscular Volume 95.1 fL (81-99); Mean Platelet Vol. 10.5 fl (6.2-12.0); Monocyte# 0.49 X10^3/uL; NRBC Flagged by Analyzer 0 % (0-5); Neutrophil # 2.41 X10^3/uL (2.7-7.7); Neutrophil % 54.2 % (47-70); Platelet Count 285 K/mm3 (150-450); RBC Distribution Width CV 14.6 % (11.6-14.6); RBC Distribution Width SD 50.3 fl (35.1-43.9); Red Blood Count 4.27 M/mm3 (4.2-5.4); White Blood Count 4.5 K/mm3 (4.4-11.0)
[2024-05-26 10:33] LABS: ALB/GLOB Ratio 1.1 RATIO (0.9-2.4); AST(SGOT) 31 U/L (15-37); Alanine Aminotransfer ALT/SGPT 44 U/L (13-56); Albumin, Serum 3.5 g/dL (3.2-5.0); Alkaline Phosphatase 75 U/L (45-117); Anion Gap 5 (5-15); BUN 14 mg/dL (7-18); BUN/Creat Ratio 16.8 RATIO (10-20); Calcium,Total 9.2 mg/dL (8.5-10.1); Chloride 108 mmol/L (98-107); Creatinine, Serum 0.83 mg/dL (0.55-1.02); EST Glomerular Filtration Rate 72 mL/min (>60); Est Glom Filt Rate - Afr Amer 87 mL/min (>60); Globulin 3.3 g/dL (2.2-4.2); Glucose 82 mg/dL (74-106); Potassium 4.2 mmol/L (3.5-5.1); Protein, Total 6.8 g/dL (6.4-8.2); Sodium Level 141 mmol/L (136-145)
== END | disposition home or self-care (01) ==
LOC: MTLAB 07:51
PROVIDERS: PCP Internal Medicine; Referring Provider Internal Medicine Rheumatology; Visit Provider Internal Medicine Rheumatology
DX: M06.4 Inflammatory polyarthropathy (principal); M79.7 Fibromyalgia; Z79.899 Other long term (current) drug therapy
CPT/HCPCS: 36415; 80053; 85025

== ENCOUNTER → 2024-07-13 | Outpatient (CLI) | payer MEDICARE, SELFPAY ==
--- NOTE | 2024-07-13 10:01 | RAD_ITS ---
STUDY: X-RAY CHEST REASON FOR EXAM: Female, 73 years old. Cough, fatigue TECHNIQUE: PA and lateral views of the chest. COMPARISON: None. FINDINGS: There is hyperinflation of the lungs consistent with chronic obstructive lung disease (COPD). Mild degree of the increased markings at the lung bases suggests mild bibasilar scarring. There is no demonstrated pleural abnormality. Normal size heart. Normal mediastinum and saima. Normal visualized pulmonary arteries. Normal visualized aortic arch and descending thoracic aorta. Normal visualized thoracic spine. Normal visualized ribs, clavicles, and shoulders. There is no demonstrated abnormality of the visualized soft tissue structures of the upper abdomen. RAD/Chest PA and Lateral IMPRESSION: Hyperinflation. Mild degree of bibasilar linear scarring. Electronically Signed: Kendrick Kurtz MD at 10:56 EST ,
== END | disposition home or self-care (01) ==
LOC: MTRAD 10:01
PROVIDERS: PCP Internal Medicine; Referring Provider Physician Assistant; Visit Provider Physician Assistant
DX: R05.9 Cough, unspecified (principal)
CPT/HCPCS: 71046

== ENCOUNTER → 2024-09-06 | Outpatient (CLI) | payer MEDICARE, SELFPAY ==
[2024-09-06 10:49] LABS: Absolute Lymphocyte Count 1.32 X10^3/uL (0.83-4.51); Absolute Neutrophil Count 3.7 X10^3/uL (2.0-7.7); Basophil# 0.03 X10^3/uL; Basophil% 0.5 % (0-1); Eosinophil# 0.09 X10^3/uL; Eosinophils% 1.5 % (0-5); Hematocrit 39.9 % (37-47); Hemoglobin 13.3 g/dL (12.0-15.0); Lymphocyte # 1.32 X10^3/ul (0.83-4.51); Lymphocyte % 22.6 % (19-41); Mean Corp Hgb Conc 33.3 g/dL (32-36); Mean Corpuscular Hgb 31.7 pg (27.0-32.0); Mean Platelet Vol. 10.3 fl (6.2-12.0); Monocyte# 0.66 X10^3/uL; Monocyte% 11.3 % (0-10); NRBC Flagged by Analyzer 0 % (0-5); Neutrophil # 3.73 X10^3/uL (2.7-7.7); Neutrophil % 63.8 % (47-70); Platelet Count 295 K/mm3 (150-450); RBC Distribution Width SD 48.1 fl (35.1-43.9); White Blood Count 5.9 K/mm3 (4.4-11.0)
[2024-09-06 11:11] LABS: AST(SGOT) 30 U/L (15-37); Alanine Aminotransfer ALT/SGPT 47 U/L (13-56); Albumin, Serum 3.3 g/dL (3.2-5.0); Alkaline Phosphatase 77 U/L (45-117); Anion Gap 4 (5-15); BUN 14 mg/dL (7-18); BUN/Creat Ratio 17.2 RATIO (10-20); Chloride 108 mmol/L (98-107); Creatinine, Serum 0.82 mg/dL (0.55-1.02); EST Glomerular Filtration Rate 73 mL/min (>60); Est Glom Filt Rate - Afr Amer 88 mL/min (>60); Globulin 3.2 g/dL (2.2-4.2); Glucose 70 mg/dL (74-106); Potassium 3.9 mmol/L (3.5-5.1); Protein, Total 6.5 g/dL (6.4-8.2); Sodium Level 140 mmol/L (136-145)
== END | disposition home or self-care (01) ==
LOC: MTLAB 08:35
PROVIDERS: PCP Internal Medicine; Referring Provider Internal Medicine Rheumatology; Visit Provider Internal Medicine Rheumatology
DX: M06.4 Inflammatory polyarthropathy (principal); M79.7 Fibromyalgia; Z79.899 Other long term (current) drug therapy
CPT/HCPCS: 36415; 80053; 85025

== ENCOUNTER → 2024-10-21 | Outpatient (CLI) | payer MEDICARE, SELFPAY ==
--- NOTE | 2024-10-21 09:37 | RAD_ITS ---
PROCEDURE: CHEST PA AND LATERAL REASON FOR EXAM: Cough. Wheezing. Congestion. TECHNIQUE: Chest PA and lateral. COMPARISON: 07/13/2024 FINDINGS: Lungs are clear of pneumonia and congestion. No pleural effusions, thickening, or pneumothorax. Heart and mediastinum are normal. Great vessels unremarkable. No hilar masses. Bones and soft tissues are unremarkable. RAD/Chest PA and Lateral IMPRESSION: No active cardiopulmonary disease. Reading Location: [facility]
== END | disposition home or self-care (01) ==
LOC: MTRAD 09:36
PROVIDERS: PCP Internal Medicine; Referring Provider Physician Assistant Surgical; Visit Provider Physician Assistant Surgical
DX: R05.9 Cough, unspecified (principal)
CPT/HCPCS: 71046

== ENCOUNTER → 2024-11-11 | Outpatient (CLI) | payer MEDICARE, SELFPAY ==
--- NOTE | 2024-11-11 09:45 | BI_ITS ---
PROCEDURE: SCRN MAMM (CAD)W/REYMUNDO BILAT REASON FOR EXAM: F, Age 74 y/o , SCREENING MAMMOGRAM FOR BREAST CANCERPrior left ultrasound- guided breast biopsy. Grandmother with breast cancer. TECHNIQUE: Bilateral screening digital breast tomosynthesis with 2D and 3D images. Computer aided detection. COMPARISON: Prior exam(s) dating back to October 30, 2023.. FINDINGS: The breasts are heterogeneously dense which may obscure small masses. A tissue clip marker is seen in the deep central medial aspect of the left breast. This is unchanged. No suspicious masses, areas of developing architectural distortion, or suspicious calcifications. BI/SCRN MAMM (CAD)W/REYMUNDO BILAT IMPRESSION: BI-RADS 2: BENIGN. RECOMMEND ANNUAL MAMMOGRAPHIC SCREENING. Follow-up code: Routine Follow-up The patient will be notified of the results by letter. Reading Location: [id number]
--- NOTE | 2024-11-11 10:00 | BD_ITS ---
PROCEDURE: DEXA BONE DENSITY STUDY REASON FOR EXAM: POSTMENOPAUSAL F, age 74 y/o . TECHNIQUE: DEXA scan of the lumbar spine and both hips. COMPARISON: 09/23/2019 FINDINGS: T-SCORES Lumbar spine: -0.4 (BMD 1.000); Previously: -0.7 Left hip: -0.9 (BMD 0.830); Previously: -0.9 Right hip: -0.7 (BMD 0.852); Previously: -0.6 Right hip FRAX* Results: 10 Year Probability of Fracture: Hip Fracture(1): 8.5% Major Osteoporotic Fracture(2): 34% Left hip FRAX* Results: 10 Year Probability of Fracture: Hip Fracture(1): 10% Major Osteoporotic Fracture(2): 36% *FRAX is a trademark of the [employer]'s [employer] Metabolic Bone Disease, World Health Organization (WHO) Collaborating [employer]. 1-The 10-year probability of fracture may be lower than reported if the patient has received treatment. 2-Major Osteoporotic Fracture: Clinical Spine, Forearm, Hip or Shoulder. The T-scores are also available for review on the [facility] PACS or by accessing the [facility] electronic medical record. BD/Dexa Bone Density Study IMPRESSION: Osteopenia of the lumbar spine and both hips. Reading Location: [facility] [place]
== END | disposition home or self-care (01) ==
LOC: OPBI 09:32
PROVIDERS: PCP Internal Medicine; Referring Provider Obstetrics & Gynecology; Visit Provider Obstetrics & Gynecology
DX: Z12.31 Encounter for screening mammogram for malignant neoplasm of breast (principal); Z78.0 Asymptomatic menopausal state
CPT/HCPCS: 77063; 77067; 77080

== ENCOUNTER → 2024-11-29 | Outpatient (CLI) | payer MEDICARE, SELFPAY ==
[2024-11-29 10:38] LABS: Absolute Lymphocyte Count 1.16 X10^3/uL (0.83-4.51); Absolute Neutrophil Count 3.4 X10^3/uL (2.0-7.7); Basophil# 0.02 X10^3/uL; Basophil% 0.4 % (0-1); Eosinophil# 0.13 X10^3/uL; Eosinophils% 2.4 % (0-5); Hematocrit 38.7 % (37-47); Hemoglobin 13.2 g/dL (12.0-15.0); Lymphocyte # 1.16 X10^3/ul (0.83-4.51); Lymphocyte % 21.8 % (19-41); Mean Corp Hgb Conc 34.1 g/dL (32-36); Mean Corpuscular Hgb 31.5 pg (27.0-32.0); Mean Corpuscular Volume 92.4 fL (81-99); Mean Platelet Vol. 10.3 fl (6.2-12.0); Monocyte# 0.64 X10^3/uL; NRBC Flagged by Analyzer 0 % (0-5); Neutrophil # 3.37 X10^3/uL (2.7-7.7); Neutrophil % 63.2 % (47-70); Platelet Count 311 K/mm3 (150-450); RBC Distribution Width CV 14.7 % (11.6-14.6); RBC Distribution Width SD 49.5 fl (35.1-43.9); Red Blood Count 4.19 M/mm3 (4.2-5.4); White Blood Count 5.3 K/mm3 (4.4-11.0)
[2024-11-29 10:54] LABS: ALB/GLOB Ratio 1.5 RATIO (0.9-2.4); AST(SGOT) 33 U/L (<=31); Alanine Aminotransfer ALT/SGPT 30 U/L (<=34); Alkaline Phosphatase 82 U/L (35-104); Anion Gap 13 (5-15); BUN 12 mg/dL (4-19); BUN/Creat Ratio 15.4 RATIO (10-20); Calcium,Total 9.3 mg/dL (7.6-11.0); Carbon Dioxide 21.9 mmol/L (21.0-32.0); Chloride 105 mmol/L (98-108); Creatinine, Serum 0.75 mg/dL (0.70-1.20); EST Glomerular Filtration Rate 84 (>60); Globulin 2.7 g/dL (2.2-4.2); Glucose 94 mg/dL (70-99); Potassium 4.3 mmol/L (3.3-5.1); Protein, Total 6.7 g/dL (5.9-8.4); Sodium Level 140 mmol/L (133-145); Total Bilirubin 0.31 mg/dL (0.00-1.30)
== END | disposition home or self-care (01) ==
LOC: MTLAB 07:44
PROVIDERS: PCP Internal Medicine; Referring Provider Internal Medicine Rheumatology; Visit Provider Internal Medicine Rheumatology
DX: M06.4 Inflammatory polyarthropathy (principal); M79.7 Fibromyalgia; Z79.899 Other long term (current) drug therapy
CPT/HCPCS: 36415; 80053; 85025

== ENCOUNTER → 2025-01-28 | Outpatient (CLI) | payer MEDICARE, SELFPAY ==
[2025-01-28 15:07] LABS: Absolute Lymphocyte Count 1.91 X10^3/uL (0.83-4.51); Absolute Neutrophil Count 3.2 X10^3/uL (2.0-7.7); Basophil# 0.02 X10^3/uL; Basophil% 0.3 % (0-1); Eosinophil# 0.07 X10^3/uL; Eosinophils% 1.2 % (0-5); Hematocrit 39.9 % (37-47); Hemoglobin 13.6 g/dL (12.0-15.0); Lymphocyte # 1.91 X10^3/ul (0.83-4.51); Lymphocyte % 33.3 % (19-41); Mean Corp Hgb Conc 34.1 g/dL (32-36); Mean Corpuscular Hgb 31.6 pg (27.0-32.0); Mean Corpuscular Volume 92.6 fL (81-99); Mean Platelet Vol. 10.5 fl (6.2-12.0); Monocyte# 0.56 X10^3/uL; Monocyte% 9.8 % (0-10); NRBC Flagged by Analyzer 0 % (0-5); Neutrophil # 3.17 X10^3/uL (2.7-7.7); Neutrophil % 55.2 % (47-70); Platelet Count 320 K/mm3 (150-450); RBC Distribution Width CV 14.3 % (11.6-14.6); RBC Distribution Width SD 48.2 fl (35.1-43.9); Red Blood Count 4.31 M/mm3 (4.2-5.4); White Blood Count 5.7 K/mm3 (4.4-11.0)
[2025-01-28 16:34] LABS: ALB/GLOB Ratio 1.7 RATIO (0.9-2.4); AST(SGOT) 27 U/L (<=31); Alanine Aminotransfer ALT/SGPT 20 U/L (<=34); Albumin, Serum 4.2 g/dL (3.4-4.8); Alkaline Phosphatase 72 U/L (35-104); Anion Gap 11 (5-15); BUN 14 mg/dL (4-19); BUN/Creat Ratio 16.1 RATIO (10-20); Calcium,Total 9.4 mg/dL (7.6-11.0); Carbon Dioxide 22.9 mmol/L (21.0-32.0); Chloride 104 mmol/L (98-108); Cholesterol 190 mg/dL (<=200); Creatinine, Serum 0.89 mg/dL (0.70-1.20); EST Glomerular Filtration Rate 69 (>60); Globulin 2.5 g/dL (2.2-4.2); Glucose 89 mg/dL (70-99); High Density Lipoprotein 53 mg/dL; Low Density Lipoprotein Calc. 117 mg/dL; Potassium 4.4 mmol/L (3.3-5.1); Protein, Total 6.6 g/dL (5.9-8.4); Sodium Level 138 mmol/L (133-145); Total Bilirubin 0.36 mg/dL (0.00-1.30); Triglycerides 100 mg/dL; Very Low Density Lipoprotein 20 mg/dL (5-40); cholesterol:hdl ratio screen 3.61
== END | disposition home or self-care (01) ==
LOC: MTLAB 12:34
PROVIDERS: PCP Internal Medicine; Referring Provider Internal Medicine Rheumatology; Visit Provider Internal Medicine
DX: M06.4 Inflammatory polyarthropathy (principal); M79.7 Fibromyalgia; Z79.899 Other long term (current) drug therapy
CPT/HCPCS: 36415; 80053; 80061; 84443; 85025

== ENCOUNTER → 2025-04-27 | Outpatient (CLI) | payer MEDICARE, SELFPAY ==
[2025-04-27 10:11] LABS: Hematocrit 41.7 % (37-47); Hemoglobin 14.2 g/dL (12.0-15.0); Immature Granulocytes Count 0.010 X10^3/uL (0.0-0.0); Mean Corp Hgb Conc 34.1 g/dL (32-36); Mean Corpuscular Volume 94.1 fL (81-99); Mean Platelet Vol. 10.6 fl (6.2-12.0); NRBC Flagged by Analyzer 0 % (0-5); Platelet Count 291 K/mm3 (150-450); RBC Distribution Width CV 14.7 % (11.6-14.6); RBC Distribution Width SD 51.0 fl (35.1-43.9); Red Blood Count 4.43 M/mm3 (4.2-5.4); White Blood Count 4.3 K/mm3 (4.4-11.0)
[2025-04-27 10:39] LABS: AST(SGOT) 33 U/L (<=31); Alanine Aminotransfer ALT/SGPT 25 U/L (<=34); Albumin, Serum 4.2 g/dL (3.4-4.8); Alkaline Phosphatase 79 U/L (35-104); Anion Gap 11 (5-15); BUN 13 mg/dL (4-19); BUN/Creat Ratio 15.3 RATIO (10-20); Calcium,Total 9.8 mg/dL (7.6-11.0); Carbon Dioxide 26.7 mmol/L (21.0-32.0); Chloride 104 mmol/L (98-108); Globulin 2.6 g/dL (2.2-4.2); Glucose 89 mg/dL (70-99); Potassium 4.5 mmol/L (3.3-5.1)
== END | disposition home or self-care (01) ==
LOC: MTLAB 08:14
PROVIDERS: PCP Internal Medicine; Referring Provider Internal Medicine Rheumatology; Visit Provider Internal Medicine Rheumatology
DX: M06.4 Inflammatory polyarthropathy (principal); M79.7 Fibromyalgia; M15.9 Polyosteoarthritis, unspecified; Z79.899 Other long term (current) drug therapy
CPT/HCPCS: 36415; 80053; 85025

== ENCOUNTER → 2025-07-22 | Outpatient (CLI) | payer MEDICARE, SELFPAY ==
[2025-07-22 10:25] LABS: Hematocrit 41.3 % (37-47); Hemoglobin 14.0 g/dL (12.0-15.0); Immature Granulocytes Count 0.010 X10^3/uL (0.0-0.0); Mean Corp Hgb Conc 33.9 g/dL (32-36); Mean Corpuscular Volume 94.7 fL (81-99); Mean Platelet Vol. 9.8 fl (6.2-12.0); NRBC Flagged by Analyzer 0 % (0-5); Platelet Count 337 K/mm3 (150-450); RBC Distribution Width CV 14.6 % (11.6-14.6); RBC Distribution Width SD 50.3 fl (35.1-43.9); Red Blood Count 4.36 M/mm3 (4.2-5.4); White Blood Count 5.6 K/mm3 (4.4-11.0)
[2025-07-22 11:00] LABS: AST(SGOT) 26 U/L (<=31); Alanine Aminotransfer ALT/SGPT 20 U/L (<=34); Albumin, Serum 4.1 g/dL (3.4-4.8); Alkaline Phosphatase 70 U/L (35-104); Anion Gap 9 (5-15); BUN 14 mg/dL (4-19); BUN/Creat Ratio 16.0 RATIO (10-20); Calcium,Total 9.7 mg/dL (7.6-11.0); Carbon Dioxide 28.5 mmol/L (21.0-32.0); Chloride 105 mmol/L (98-108); Free T3 3.2 pg/mL (2.18-3.98); Globulin 2.6 g/dL (2.2-4.2); Glucose 82 mg/dL (70-99); Potassium 4.8 mmol/L (3.3-5.1)
== END | disposition home or self-care (01) ==
LOC: MTLAB 08:07
PROVIDERS: PCP Internal Medicine; Referring Provider Internal Medicine; Visit Provider Internal Medicine
DX: M06.4 Inflammatory polyarthropathy (principal); Z79.899 Other long term (current) drug therapy
CPT/HCPCS: 36415; 80053; 84439; 84443; 84481; 85025